=== PATIENT | male | born 1930 | race Caucasian/White ===

== ENCOUNTER 2017-10-23 11:13 | Outpatient (CLI) | payer MEDICARE, OTHER ==
[~2017-10-23] VITALS: Ht 188 cm; Wt 90.7 kg
--- NOTE | ~2017-10-23 | OP ---
PATIENT NAME: ISHA ROPER MEDICAL RECORD: [id number] :31 LOCATION:D.CAT ADMISSION DATE: SURGEON: ALLYSON BAXTER MD DATE OF OPERATION: 10/23/2017 DATE OF OPERATION: 10/23/2017 PREOPERATIVE DIAGNOSIS: Sick sinus syndrome with paroxysmal atrial fibrillation and peter escape. This was a cosurgeon case. The painter and decorator is Dr. Donavan Parker. SURGEON: Allyson Baxter Jr., MD ANESTHESIA: Local with IV sedation. BLOOD LOSS: Minimal. COMPLICATIONS: None. This was a cosurgeon case. Due to the complexity of the operation, it was necessary to have 2 attending surgeons present, a painter and decorator and a general surgeon. DESCRIPTION OF PROCEDURE: The patient was conveyed to the cardiac catheterization laboratory on 10/23/2017. IV sedation was induced by the nursing staff under my direction. The left chest was sterilely prepped and draped. A local anesthetic was used to infiltrate the skin and subcutaneous tissues inferior to the left clavicle. A transverse incision was accomplished inferior to the left clavicle. A subcutaneous pocket was fashioned bluntly in a caudad direction. I had an anesthesiologist assistant certified pull down on the left arm toward the foot. Through the pacemaker pocket, I was able to advance a needle under the left clavicle, utilizing an antegrade approach to the subclavian vein. This was visualized under fluoroscopy. A guidewire passed easily. This was visualized under fluoroscopy as well. A 9-Qatari dilator sheath was advanced over the wire. This was visualized under fluoroscopic guidance. The dilator was removed. Through the 9-Qatari sheath, the ventricular lead was advanced. Dr. Donavan Parker positioned the ventricular lead. Appropriate thresholds were obtained. I then sutured the ventricular lead down to the underlying pectoralis fascia with 2-0 TiCron times 2. Over the secondary wire, a 7-Qatari dilator sheath was advanced. This was visualized under fluoroscopic guidance. The dilator and wire were removed. Through the sheath, an atrial lead was advanced. The Peel-Away sheath was then removed. Dr. Donavan Parker then positioned the atrial lead. Appropriate thresholds were obtained. I then sutured the atrial lead down to the underlying pectoralis fascia with 2-0 TiCron times 2. The pacemaker generator was then brought onto the sterile field. I confirmed with the pacemaker packaging sales representative the serial number on the ventricular lead. It was then placed within the ventricular dock of the pacemaker and tightened down with the wrench. I tried to dislodge the ventricular lead and was unable to do so. I then confirmed with pacemaker packaging sales representative the serial number on the atrial lead. This was placed in the atrial dock of the pacemaker generator and then tightened down with the wrench. I tried to dislodge the atrial lead and was unable to do so. The pacemaker generator and wires were then placed in the pacemaker pocket. Care was paid to place the wires posterior to the generator. The pacemaker was then sutured to the underlying pectoralis fascia with 2-0 OPERATIVE REPORT [id number] ISHA ROPERron times 1. I irrigated the pacemaker pocket. There was no bleeding even at low pressure of 8. The deep adipose tissue was closed with interrupted 3-0 Vicryls. The subcutaneous adipose tissue was closed with interrupted 3-0 Vicryls. The skin was approximated with a running intracuticular 3-0 Vicryl. A sterile dressing was applied. We then examined the pacemaker generator and the wires again. The wires appeared to have been well placed and had not been dislodged. The pacemaker generator appeared to be in good position. There was no radiographic evidence of complication. The patient was then conveyed back to their room. I will see the patient on a p.r.n. basis. There is no need for the patient to follow up with me unless the patient develops a complication related to this operative procedure. My involvement in the procedure was creation of the pacemaker pocket, vascular access into the central venous system, placement of the pacemaker generator into the pocket and then closure. TRANSINT:[id number] Voice Confirmation ID: [id number] DOCUMENT ID: [id number] ALLYSON BAXTER MD at 0938 CC: DONAVAN ALBA MD [id number] DICTATION DATE: 10/23/17 1504 BRUSH SANDER: 10/23/17 1648 DEP CLI 10/24/17 [id number] [place] [address]
--- NOTE | ~2017-10-23 | HEMODYNAMI ---
PATIENT:ISHA ROPER MEDICAL RECORD: [id number] : 31 LOCATION:DMARILYNN ADMISSION DATE: 10/23/17 Generatedon:10/23/201714:32 Patient name: ISHA ROPER Patient #: [id number] SSN: DO B: 1930 Date of study: 10/23/2017 Page: Of Hemodynamic Procedure Report Patient Data Patient Demographics Procedure consent was obtained First Name: ISHA Gender: Male Last Name: JUDSON : 1930 Middle Initial: F Age: 86 year(s) Patient #: [id number] Race: Unknown Additional ID: [id number] Contact details [address]: [address] [place] [address] State: [place] City: [place] Zip code: [address] Past Medical History Allergies Allergen Reaction Date Comments Reported Morphine 10/23/2017 Penicillins 10/23/2017 Admission Admission Data Admission Date: 10/23/2017 Admission Time: 11:13 Procedure Procedure Types Cath Procedure Diagnostic Procedure PPM/ICD PPM Dual Implant Miscellaneous Procedures Moderate Sedation up to 30 minutes Procedure Description Procedure Date Procedure Date: 10/23/2017 Procedure Start Time: 13:44 Procedure End Time: 14:32 Procedure Staff Name Function Donavan Parker MD Performing Physician Wing De Oliveira MD Assisting physician Rob Sharma RT Monitor Mague Lyle RT Monitor Loree Xiao RT Scrub Jem Marvin RN Nurse Procedure Data Cath Procedure Fluoroscopy Diagnostic fluoroscopy Total fluoroscopy Time: 2.8 time: 2.8 min min Diagnostic fluoroscopy Total fluoroscopy dose: 96 dose: 96 mGy mGy Procedure Complications No complications Procedure Medications Medication Administration Route Dosage Vancomycin I.V.P.B 1 g Vancomycin Topical 1 g Irrigation Fentanyl I.V. 50 mcg Versed I.V. 1 mg Fentanyl I.V. 50 mcg Versed I.V. 1 mg Hemodynamics Rest Heart Rate: 44 (bpm) Snapshots Pre Cath Intra NCS Post Cath Vital Signs Time Heart Resp SPO2 etCO2 NIBP (mmHg) Rhythm Pain Sedation Rate (ipm) (%) (mmHg) Status Level (bpm) 13:39:46 45 18 98 0 206/95(156) NSR 0 (11) 10(A) , No pain 13:45:15 48 19 98 0 187/89(151) NSR 0 (11) 10(A) , No pain 13:49:32 50 19 92 0 185/78(140) NSR 0 (11) 10(A) , No pain 13:53:46 49 18 94 0 181/78(136) NSR 0 (11) 9(A) , No pain 13:57:57 51 18 94 0 180/82(136) NSR 0 (11) 9(A) , No pain 14:02:15 48 18 94 0 177/69(133) NSR 0 (11) 9(A) , No pain 14:07:06 41 17 96 0 182/84(139) NSR 0 (11) 9(A) , No pain 14:11:49 60 17 96 0 180/76(139) NSR 0 (11) 9(A) , No pain 14:15:59 60 18 96 0 181/83(140) NSR 0 (11) 9(A) , No pain 14:20:09 60 20 97 0 182/89(132) NSR 0 (11) 9(A) , No pain 14:24:17 84 18 95 0 183/94(121) NSR 0 (11) 9(A) , No pain 14:29:16 65 16 96 0 187/89(152) NSR 0 (11) 9(A) , No pain Medications Time Medication Route Dose Verified Delivered Reason Notes Effective ness by by 13:33:31 Vancomycin I.V.P.B 1 g [place] [facility] Per [facility] Enio Marvin RN physician 13:33:45 Vancomycin Topical 1 g Donavan Parish used for Irrigation [facility]. Enio Marvin RN procedure 13:46:07 Fentanyl I.V. 50 Donavan Parish for [facility] Enio Marvin RN sedation 13:46:13 Versed I.V. 1 mg Donavan Parish for [facility] Enio Marvin RN sedation 13:50:04 Fentanyl I.V. 50 Donavan Parish for [facility] Enio Marvin RN sedation 13:50:09 Versed I.V. 1 mg [place] for [facility] Enio Marvin RN sedation Procedure Log Time Note 13:14:09 Jem Marvin RN sent for patient. Start room use. 13:14:10 Time tracking: Regular hours 13:14:13 Plan of Care:Hemodynamics will remain stable., Cardiac rhythm will remain stable., Comfort level will be maintained., Respiratory function will remain adequate., Patient/ family verbilizes understanding of procedure., Procedure tolerated without complication., Recovers from procedure without complications.. 13:18:54 Patient received from Pre/Post Procedure Room to CCL 3 Alert and oriented. Tansferred to table in Supine position. 13:18:55 Warm blankets applied, and leslie hugger turned on for patient comfort. 13:18:56 Correct patient and procedure confirmed by team. 13:18:58 Signed procedure consent form obtained from patient. 13:18:59 ECG and BP/O2 sat monitors applied to patient. 13:33:31 Vancomycin 1 g I.V.P.B was administered by Jem Marvin RN; Per physician; 13:33:44 Cautery Tip Metal Die Finisher opened to sterile field. 13:33:45 Vancomycin Irrigation 1 g Topical was administered by Jem Marvin RN; used for procedure; 13:33:46 Mepilex Dressing (708630) opened to sterile field. 13:33:47 Cautery Pushbutton Pencil opened to sterile field. 13:33:53 PEELAWAY 7FR Safe Sheath (SU7) opened to sterile field. 13:35:44 Medtronic Adapta PPM Dual Generator ADDR01 opened to sterile field. 13:35:45 Medtronic 4074-58 PPM Lead opened to sterile field. 13:35:46 Medtronic 4574-53 PPM Lead opened to sterile field. 13:37:26 Vital chart was started 13:37:27 Baseline sample Acquired. 13:37:32 Rhythm: sinus bradycardia 13:37:34 Full Disclosure recording started 13:39:16 H&P Date Dictated: 10/15/2017 Within 30 days and on chart., H&P Addendum completed by physician on day of procedure. (MUST COMPLETE FOR ALL OUTPATIENTS). 13:39:22 Pre-procedure instructions explained to patient. 13:39:23 Pre-op teaching completed and patient verbalized understanding. 13:39:25 Family in waiting room. 13:39:28 Patient NPO since Breakfast. 13:39:38 Patient allergic to Morphine 13:39:45 Patient allergic to Penicillins 13:39:51 ----Pre-sedation anethsthesia assessment.---- 13:39:53 Previous problem with sedation/anesthesia? No ? 13:40:20 Snore? Yes 13:40:23 Sleep apnea? No 13:40:26 Deviated septum? No 13:40:28 Opens mouth fully? Yes 13:40:31 Sticks out tongue? Yes 13:40:34 Airway obstruction? No ? 13:40:43 Dentures? Yes in tight 13:40:52 Physician arrived 13:40:53 --------ALL STOP TIME OUT------ 13:40:53 Final Timeout: patient, procedure, and site verified with staff and physician. All members of the team are in agreement. 13:40:57 Left chest site verified by team. 13:41:01 Physical assessment completed. ASA score P 2 - A patient with mild systemic disease as per Wing De Oliveira MD. 13:41:10 Sedation plan: IV Moderate Sedation Medication:Versed, Fentanyl 13:42:02 IV patent on arrival in left forearm with 0.9% NaCl at [facility]. 13:42:20 Procedure started. 13:42:45 Medtronic customer loyalty representative ed lozada present for procedure. 13:43:48 Pre sharps counted by scrub and verified by RN: Sutures: 14; Sponges: 5; Stick needles: 2; Skin needles: 2; Blade: 1; Cautery: 1 13:43:51 Grounding pad site Left thigh. 13:44:10 Lidocaine 1% w/epi and Bupivacaine 0.5% was administered to left subclavicular area by Wing De Oliveira MD . 13:44:13 Incision made to left subclavicular area. 13:46:07 Fentanyl 50 mcg I.V. was administered by Jem Marvin RN; for sedation; 13:46:13 Versed 1 mg I.V. was administered by Jem Marvin RN; for sedation; 13:47:27 Generator pocket made/opened. 13:47:56 Left subclavian vein accessed with 7Fr Peel Away Sheath. 13:48:23 PEELAWAY 9FR Safe Sheath (SU9) opened to sterile field. 13:48:46 Left subclavian vein accessed with 9Fr Peel Away Sheath. 13:50:04 Fentanyl 50 mcg I.V. was administered by Jem Marvin RN; for sedation; 13:50:09 Versed 1 mg I.V. was administered by Jem Marvin RN; for sedation; 13:52:35 Ventricular lead inserted and advanced. 13:52:37 Peel-a-way sheath was split and removed. 13:52:47 Left subclavian vein accessed with 7Fr Peel Away Sheath. 13:52:50 Atrial lead inserted and advanced. 13:52:51 Peel-a-way sheath was split and removed. 13:53:05 Ventricular lead positioned. 13:54:00 Ventricular lead tested. 13:55:02 Left subclavian vein accessed with 7Fr Peel Away Sheath. 13:58:12 Atrial lead inserted and advanced. 13:58:16 Peel-a-way sheath was split and removed. 13:58:43 Atrial lead positioned. 13:58:46 Atrial lead tested. 14:01:11 Ventricular lead repositioned. 14:05:52 Ventricular lead tested. 14:07:38 Ventricular lead attachment was completed with 2-0 ticron. 14:08:22 Atrial lead attachment was completed with 2-0 ticron. 14:10:44 PPM Dual was attached to lead(s) and inserted into pocket. 14:11:23 Device pocket was irrigated with Vancomycin. 14:12:05 Subcutaneous closure was completed with 3-0 vicryl. 14:13:18 Parameters--Ventricular P/R Wave: 13.7`mV. Current: 0.6mA; Threshold: .3V; Impedence: 1289OHMS. 14:14:08 Parameters--Atrial P/R Wave: 13.7mV. Current: 0.2mA; Threshold: 0.3V; Impedence: 1289OHMS. 14:15:54 Parameters-- Generator: Mode: AAIR/DDDR. Lower Rate: 60bpm. Upper Rate: 120bpm. 14:16:26 Subcutaneous closure was completed with 3-0 vicryl. 14:20:37 Skin closure was completed with 3-0 vicryl plus. 14:24:02 Lt Chest incision was dressed with Mepilex dressing. 14:24:25 Post sharps counted by scrub and verified by RN: Sutures: 14; Sponges: 5; Stick needles: 2; Skin needles: 2; Blade: 1; Cautery: 1 14:25:11 Procedure ended.(Physican Out) 14:25:26 Fluoroscopy time 02.80 minutes. 14:25:31 Fluoroscopy dose: 96 mGy 14:25:31 Flurop Dose total: 96 14:25:34 Sharps counted by scrub and verified by R.N. 14:25:46 Post procedure instruction explained to patient.Patient verbalizes understanding. 14:25:47 Patient needs reinforcement of post procedure teaching. 14:26:30 Procedure type changed to Cath procedure, Diagnostic procedure, PPM/ICD, PPM Dual Implant, Miscellaneous Procedures, Moderate Sedation up to 30 minutes 14:27:21 Procedure and supply charges have been captured, reviewed, submitted and are correct. 14:27:26 Procedure Complication : No complications 14:31:56 Vital chart was stopped 14:31:57 See physician's report for complete and final results. 14:31:59 Report given to Pre/Post Procedure Room. 14:32:01 Patient transfered to Pre/Post Procedure Room with Bed. 14:32:03 Procedure ended. 14:32:03 Full Disclosure recording stopped 14:32:08 End room use (Document Last) Device Usage Item Name Manufacture Quantity Catalog Hospital Part Current Minimal Lot # / Number Charge Number Stock Stock Serial# Code Cautery Microtek 1 [id number] 5 [employer] Metal Die Finisher Mepilex Cardinal 1 [id number] [id number] [id number] [id number] 5 Dressing Health (211359) Cautery Microtek 1 [id number] 68983 [id number] 5 Pushbutton [employer] Pencil PEELAWAY Microtek 1 SU7 [id number] 146089 [id number] 10 7FR Safe [employer] Sheath (SU7) Medtronic Medtronic 1 ADDR01 788264 161072 5 NWB [id number] Adapta PPM EXP Dual Generator ADDR01 Medtronic Medtronic 1 4074-58 726333 516438 5 BBD [id number] 4074-58 EXP PPM Lead Medtronic Medtronic 1 4574-53 469838 030881 5 BBE [id number] 4574-53 EXP PPM Lead PEELAWAY Microtek 1 SU9 371919 715549 030990 5 9FR [facility] [employer] Sheath (SU9) Signature Audit Warren Stage Time Signature Unsigned Intra-Procedure 10/23/2017 Mague Lyle 2:32:46 PM RT(R) Signatures Monitor : Rob Sharma RT Signature : Date : Time : Monitor : Mague Lyle Signature : RT Date : Time : [address] [place] [address]
--- NOTE | ~2017-10-23 | OP ---
PATIENT NAME: ISHA THOMPSON MEDICAL RECORD: [id number] :31 LOCATION:D.CAT ADMISSION DATE: SURGEON: MALINDA ALBA MD DATE OF OPERATION: 10/23/2017 PROCEDURE: Lead portion of permanent pacemaker placement. INDICATION: Sick sinus syndrome with PAF and peter escapes. SURGEON: Wing De Oliveira MD DESCRIPTION OF PROCEDURE: After left subclavian was cannulated via direct visualization via Dr. De Oliveira, first, under fluoroscopic guidance, I placed RV lead in RV apex. After adequate thresholds and R waves were obtained, again, under fluoroscopic guidance, I then placed right atrial lead in right atrial appendage without difficulty. After adequate P waves and thresholds were obtained, leads were attached to appropriate poles of the generator. Pocket was closed by Dr. De Oliveira. IMPRESSION: Successful lead portion of permanent pacemaker placement on Isha Thompson. COMPLICATIONS: None. DISPOSITION: To the floor, stable. ESTIMATED BLOOD LOSS: Minimal. TRANSINT:[id number] Voice Confirmation ID: [id number] DOCUMENT ID: [id number] MALINDA ALBA MD at 1337 CC: [id number] DICTATION DATE: 10/23/17 1414 HOME ATTENDANT: 10/23/17 1512 DEP CLI 10/24/17 [facility] [address] [place] [address]
[~2017-10-23 11:13] MED LIST: ALEVE220 MG PO; BAYER CHEWABLE81 MG PO; CARDURA4 MG; CARDURA4 MG PO; DOXAZOSIN PO; FISH OIL 1,0001 CA1 PO; GEMFIBROZIL600 MG PO; KENALOG 0.1 % 115 GM TOPICAL; OS-CAL 500+D TA1 TAB PO; PACERONE100 MG PO; PREDNISONE5 MG PO; STOOL SOFTENER100 M1 PO; TIROSINT75 MCG PO; VIBRAMYCIN 100100 MG PO; VITAMIN B-121000 MCG PO
[2017-10-23] MEDS ORDERED: PREDNISONE5 MG PO (12:14)
[2017-10-23] MEDS ORDERED: SYNTHROID75 MCG PO (12:15)
[2017-10-23] MEDS ORDERED: ZIAC 10-6.25 MG1 TAB PO (12:15)
[2017-10-23 12:18] VITALS: BP 164/70; BMI 25.7
[2017-10-23 12:22] LABS: BASOPHILS 0.2 % (0-2); EOSINOPHILS 1.7 % (0-7); HEMATOCRIT 40.8 % (42.0-54.0); HEMOGLOBIN 13.8 g/dL (13.5-17.5); LYMPHOCYTES 18.2 % (15-50); MCH 32.8 pg (26.0-34.0); MCHC 33.8 g/dL (31.0-37.0); MCV 96.9 fL (80.0-100.0); MEAN PLATELET VOLUME 10.4 fL (7.4-10.4); MONOCYTES 5.5 % (2-11); NEUTROPHILS 74.4 % (40-80); PLATELET COUNT 170 10x3/uL (130-400); RBC 4.21 10x6/uL (4.20-6.10); RDW 12.8 % (11.5-14.5); WBC 4.2 10x3/uL (4.8-10.8)
[2017-10-23 12:32] LABS: INR 1.04 (0.85-1.17); PROTIME 13.2 SECONDS (11.6-15.0)
[2017-10-23 12:43] LABS: CALCIUM 9.1 mg/dL (8.5-10.1); CARBON DIOXIDE 24.8 mmol/L (21.0-32.0); CREATININE - SERUM 1.1 mg/dL (0.6-1.3); POTASSIUM - SERUM 3.8 mmol/L (3.5-5.1)
[2017-10-23 19:00] VITALS: BP 179/74
[2017-10-24 03:43] VITALS: Ht 188 cm; Wt 90.7 kg
[2017-10-24 04:00] VITALS: BP 178/84
[2017-10-24 08:08] VITALS: BP 169/83
== END 2017-10-24 10:38 | disposition home or self-care (01) ==
LOC: D.CATH 11:13 → D.M2 11:13 → D.CATH 13:30 → D.M2 17:54 → D.CATH 10-24 10:38
PROVIDERS: Internal Medicine Interventional Cardiology
DX: I49.5 Sick sinus syndrome (principal); I25.10 Atherosclerotic heart disease of native coronary artery without angina pectoris; I10 Essential (primary) hypertension; E11.9 Type 2 diabetes mellitus without complications; Z01.812 Encounter for preprocedural laboratory examination

== ENCOUNTER 2018-09-02 10:24 | Outpatient (CLI) | payer MEDICARE, OTHER ==
[~2018-09-02] VITALS: Ht 188 cm; Wt 90.9 kg
--- NOTE | ~2018-09-02 | OP ---
PATIENT NAME: ISHA ROPER MEDICAL RECORD: [id number] :31 LOCATION:D.CAT ADMISSION DATE: SURGEON: MALINDA ALBA MD DATE OF OPERATION: 09/02/2018 This is a cath, PTCA, AFRO report. PROCEDURE: Left heart catheterization, selective coronary aortography, GIBSON injection, PTCA, and AFRO right femoral artery approach. CATHETERS: A 5-Bulgarian sheath, 5/4 left and right Davy, 5/4 pig. The procedure was well tolerated. The patient returned to the diaz, sheath removed and ExoSeal device placed. FINDINGS: Left ventriculography in 30-degree SAHNI view: Normal wall motion. Normal systolic function. CORONARY ANATOMY: LEFT MAIN: Left main is free of disease. LAD: Fills for a short period of time, is seen filling via competitive flow. CIRCUMFLEX: Free of disease. RIGHT CORONARY ARTERY: Has 80% stenosis proximal to the previously placed stent. GIBSON to LAD: Is widely patent throughout its course. The catheter was withdrawn to the level of the renal arteries. There was difficulty in traversing the wire at the level of the renal arteries itself. Aortography above and below this area show a 50% with questionable external compression of the abdominal aorta. The left iliac system shows marked tortuosity with calcium buildup, but no flow obstructive disease. Left femoral system again marked tortuosity with calcium wall disease, but no significant luminal encroachment. Right iliac system is a markedly tortuous with calcium in the wall, but no encroachment on the lumen itself. The femoral system again marked calcium deposition along the wall, but without luminal encroachment. 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 We will plan for a CTA of this vessel. Suspect the buildup in calcium is responsible for the abnormal ABIs as described previously in a separate report. Next, long 6-Bulgarian sheath placed in the right femoral artery and a Hockey stick guide catheter was placed into the right coronary without difficulty. This was followed by 300-cm Whisper wire. Stent deployed was a 3.5 x 15 mm Integrity nondrug-eluting stent at 14 atmospheres. This shows excellent resolution of 80% stenosis, no significant residual. NOHEMI flow was 3 throughout the procedure. Integrilin and heparin are used during the case. Sheath was closed with ExoSeal device. TRANSINT:[id number] Voice Confirmation ID: [id number] DOCUMENT ID: [id number] OPERATIVE REPORT [id number] ISHA ROPER GREGORY A MD at 1303 CC: [id number] DICTATION DATE: 09/02/181404 PIPE STRIPPER: 09/02/18 1841 DEP CLI 09/02/18 [facility] [address] [place] [id number]
--- NOTE | ~2018-09-02 | HEMODYNAMI ---
PATIENT:ISHA ROPER MEDICAL RECORD: [id number] : 32 LOCATION:[facility] ADMISSION DATE: 09/02/18 Generatedon:09/02/201813:56 Patient name: ISHA ROPER Patient #: [id number] SSN: DO B: 1930 Date of study: 09/02/2018 Page: Of Hemodynamic Procedure Report Patient Data Patient Demographics Procedure consent was obtained First Name: ISHA Gender: Male Last Name: JUDSON : 1930 Middle Initial: F Age: 87 year(s) Patient #: [id number] Race: Unknown Additional ID: [id number] Contact details [address]: [address] [place] [address] State: [place] City: [place] Zip code: [address] Past Medical History Allergies Allergen Reaction Date Comments Reported Morphine 10/23/2017 Penicillins 10/23/2017 Morphine 09/02/2018 Natural rubber 09/02/2018 and latex Penicillins 09/02/2018 Admission Admission Data Admission Date: 09/02/2018 Admission Time: 10:24 Procedure Procedure Types Cath Procedure Diagnostic Procedure LHC LHC w/Coronaries w/Grafts Sedation Charges Moderate Sedation up to 30 minutes PCI Procedure Coronary Stent Coronary Stent Initial Peripheral Cath Diagnostic Procedure Edge Grinder Machine Peripheral Procedures Ynwoa-Uxdwudn-Pnn-Off Procedure Description Procedure Date Procedure Date: 09/02/2018 Procedure Start Time: 13:11 Procedure End Time: 13:55 Procedure Staff Name Function Donavan Palacios MD Performing Physician Loree Xiao RT Monitor Elliot Charles RN Nurse Marbella Brown RT Scrub Jem Marvin RN Consumer Recruiter Procedure Data Cath Procedure Fluoroscopy Diagnostic fluoroscopy Total fluoroscopy Time: time: 14.1 min 14.1 min Diagnostic fluoroscopy Total fluoroscopy dose: dose: 1677 mGy 1677 mGy Contrast Material Contrast Material Type Amount (ml) Isovue 300 217 Entry Location Entry Primary Successful Side Size Upsize Upsize Entry Closure Succes sful Closure Location (Fr) 1 (Fr) 2 (Fr) Remarks Device Remarks Femoral Right 5 Fr 6 Fr 6 Fr artery Long Short Estimated blood loss: 10 ml Diagnostic catheters Device Type Used For End Catheter Placement MULTIPACK 3DRC 5Fr Right Coronary catheter Angiography MULTIPACK 3DRC 5Fr Internal mammary catheter arteriography DIAGNOSTIC MPA-2 5Fr Internal mammary catheter ([id number]) arteriography MULTIPACK JL 4.0 5Fr Left Coronary catheter Angiography MULTIPACK Pigtail 5 Fr LV Angiography catheter MULTIPACK Pigtail 5 Fr Abdominal catheter aortogram with runoff Procedure Complications No complications Procedure Medications Medication Administration Route Dosage 0.9% NaCl I.V. 100 ml/hr Oxygen etCO2 Nasal cannula 2 l/min Heparin Flush Bag added to field 2 bags (1000units/500ml NS) Lidocaine 2% added to field 20 Versed I.V. 1 mg Fentanyl I.V. 50 mcg Versed I.V. 1 mg Fentanyl I.V. 50 mcg Heparin Bolus I.V. 5000 units Integrilin (Bolus I.V. 7.9 ml 2mg/ml) Integrilin (Bolus wasted 2.1 ml 2mg/ml) Plavix P.O. 600 mg Fentanyl I.V. 50 mcg Fentanyl I.V. 50 mcg Hemodynamics Rest Heart Rate: 60 (bpm) Pressure Samples Time Site Value (mmHg) Purpose Heart Use Rate(bpm) 13:29 LV 87/14,18 EDP 80 13:29 AO 153/50(91) Pullback 59 13:29 LV 157/13,19 Pullback 59 Gradients Valve Time Site 1 Site 2 Mean SEP/DFP Peak To Heart Use (mmHg) (sec/min) Peak Rate (mmHg) (bpm) Aortic 13:29 LV AO 8 18 4 59 157/13,19 153/50(91) Calculations Valve P-P Mean Valve Index Valve Source Name Gradient Area Flow (cm2) Aortic 4 8 4 8 Snapshots Pre Cath Intra NCS Post Cath Vital Signs Time Heart Resp SPO2 etCO2 NIBP (mmHg) Rhythm Pain Sedation Rate (ipm) (%) (mmHg) Status Level (bpm) 12:49:11 60 20 98 0 179/94(137) Paced 0 (11) , 10(A) No pain 12:53:33 70 14 100 23.4 162/80(110) Paced 0 (11) , 10(A) No pain 12:57:47 60 15 100 37.1 162/89(133) Paced 0 (11) , 10(A) No pain 13:02:03 60 14 100 32.5 156/81(127) Paced 0 (11) , 10(A) No pain 13:06:19 60 14 100 0 150/78(129) Paced 0 (11) , 10(A) No pain 13:10:33 60 14 100 17.4 152/75(123) Paced 0 (11) , 10(A) No pain 13:14:47 60 18 100 0 148/77(124) Paced 0 (11) , 9(A) No pain 13:19:01 60 17 97 0 140/74(115) Paced 0 (11) , 9(A) No pain 13:23:13 60 18 98 0 134/74(108) Paced 0 (11) , 9(A) No pain 13:28:22 59 18 99 38.6 145/83(124) Paced 0 (11) , 9(A) No pain 13:32:34 59 17 99 38.6 152/79(129) Paced 0 (11) , 10(A) No pain 13:36:50 60 11 100 40.9 154/76(126) Paced 0 (11) , 10(A) No pain 13:41:04 60 15 99 38.6 158/81(95) Paced 0 (11) , 10(A) No pain 13:45:18 61 19 99 39.4 161/81(99) Paced 0 (11) , 10(A) No pain 13:50:42 61 10 99 34.8 187/98(113) Paced 8 (11) , 10(A) Utterly horrible 13:55:04 61 10 99 35.6 195/97(128) Paced 8 (11) , 10(A) Utterly horrible Medications Time Medication Route Dose Verified Delivered Reason Notes Effectiveness by by 12:52:04 0.9% NaCl I.V. 100 Elliot Elliot Per physician ml/hr Araceli Charles RN RN 12:52:14 Oxygen etCO2 2 Elliot Elliot Per physician Nasal l/min Araceli Charles cannula RN RN 12:52:26 Heparin Flush added 2 Elliot Elliot used for Bag to bags Araceli Charles procedure (1000units/500ml RN RN NS) 12:52:37 Lidocaine 2% added 20ml Elliot Elliot for local to vial Araceli Charles anesthetic field RN RN 13:06:26 Versed I.V. 1 mg Elliot Elliot for sedation Araceli Charles RN RN 13:06:35 Fentanyl I.V. 50 Elliot Elliot for sedation mcg Araceli Charles RN RN 13:09:00 Versed I.V. 1 mg Elliot Elliot for sedation Araceli Charles RN RN 13:09:05 Fentanyl I.V. 50 Elliot Elliot for sedation mcg Araceli Charles RN RN 13:43:35 Heparin Bolus I.V. 5000 Elliot Elliot for units Araceli Charles anticoagulation RN RN 13:43:51 Integrilin I.V. 7.9 Elliot Elliot for (Bolus 2mg/ml) ml Araceli Charles antiplatelet RN RN therapy 13:44:01 Integrilin wasted 2.1ml Elliot Elliot to sharp's (Bolus 2mg/ml) Araceli Charles RN RN 13:49:13 Plavix P.O. 600 Elliot Elliot for mg Araceli Charles antiplatelet RN RN therapy 13:53:51 Fentanyl I.V. 50 Elliot Elliot for chest pain mcg Araceli Charles RN RN 13:54:56 Fentanyl I.V. 50 Elliot Elliot for chest pain mcg Araceli Charles RN tax compliance manager Log Time Note 12:35:45 Jem Marvin RN sent for patient. Start room use. 12:35:46 Time tracking: Regular hours (M-F 7:00 - 5:00) 12:35:53 Plan of Care:Hemodynamics will remain stable., Cardiac rhythm will remain stable., Comfort level will be maintained., Respiratory function will remain adequate., Patient/ family verbilizes understanding of procedure., Procedure tolerated without complication., Recovers from procedure without complications.. 12:44:43 Patient received from Pre/Post Procedure Room to CCL 2 Alert and oriented. Tansferred to table in Supine position. 12:44:44 Warm blankets applied, and leslie hugger turned on for patient comfort. 12:44:45 Correct patient and procedure confirmed by team. 12:44:46 Signed procedure consent form obtained from patient. 12:44:47 ECG and BP/O2 sat monitors applied to patient. 12:44:48 Full Disclosure recording started 12:48:06 Vital chart was started 12:51:44 Rhythm: sinus rhythm 12:52:00 H&P Date Dictated: 08/22/2018 Within 30 days and on chart., H&P Addendum completed by physician on day of procedure. (MUST COMPLETE FOR ALL OUTPATIENTS). 12:52:04 0.9% NaCl 100 ml/hr I.V. was administered by Elliot Charles RN; Per physician; 12:52:07 Pre-procedure instructions explained to patient. 12:52:08 Pre-op teaching completed and patient verbalized understanding. 12:52:10 Family in patients room. 12:52:11 Patient NPO since Midnight. 12:52:14 Oxygen 2 l/min etCO2 Nasal cannula was administered by Elliot Charles RN; Per physician; 12:52:26 Heparin Flush Bag (1000units/500ml NS) 2 bags added to field was administered by Elliot Charles RN; used for procedure; 12:52:37 Lidocaine 2% 20ml vial added to field was administered by Elliot Charles RN; for local anesthetic; 12:52:39 Patient allergic to Morphine 12:52:45 Patient allergic to Natural rubber and latex 12:52:50 Patient allergic to Penicillins 12:52:52 Is the patient allergic to Iodine/contrast media? No. 12:52:54 Is patient on blood thinner?No 12:52:55 Patient diabetic? No. 12:53:01 Previous problem with sedation/anesthesia? No ? 12:53:02 Snore? Yes 12:53:03 Sleep apnea? No 12:53:04 Deviated septum? No 12:53:05 Opens mouth fully? Yes 12:53:06 Sticks out tongue? Yes 12:53:08 Airway obstruction? No ? 12:53:10 Dentures? No ? 12:53:15 Pre procedure: right dorsailis pedis pulse 2+ Normal; easily identifiable; not easily obliterated 12:58:58 Patient pain scale 0/10 ?. 12:59:06 IV patent on arrival in left forearm with 0.9% NaCl at [facility]. 12:59:08 Lab results completed and on chart. 12:59:18 Bilateral groins area was prepped with chlora-prep and draped in sterile fashion 12:59:18 Alarms reviewed by R. N. 12:59:19 Sharps counted by scrub and verified by R.N. 12:59:24 Use device set Femoral Dx 12:59:25 ACIST Syringe (55501) opened to sterile field. 12:59:25 Bag Decanter (2002S) opened to sterile field. 12:59:26 Medline Cath Pack ([id number]) opened to sterile field. 12:59:26 DIAGNOSTIC WIRE .035 260cm J wire (485579) opened to sterile field. 12:59:27 ACIST Hand Control (00549) opened to sterile field. 12:59:28 ACIST Manifold (59824) opened to sterile field. 12:59:28 DIAGNOSTIC Multipack 5Fr catheter set ([id number]) opened to sterile field. 12:59:29 Tegaderm 4 x 4 (1626W) opened to sterile field. 12:59:30 SHEATH 5FR [place] (JLD741) opened to sterile field. 13:00:02 Baseline sample Acquired. 13:02:52 Zero performed for pressure channel P1 13:02:56 Zero performed for pressure channel P1 13:03:00 Zero performed for pressure channel P1 13:03:03 Zero performed for pressure channel P1 13:03:09 Zero performed for pressure channel P1 13:05:37 Final Timeout: patient, procedure, and site verified with staff and physician. All members of the team are in agreement. 13:05:39 Right groin site verified by team. 13:05:42 Physical assessment completed. ASA score P 2 - A patient with mild systemic disease as per Donavan Palacios MD. 13:05:45 Sedation plan: IV Moderate Sedation Medication:Versed, Fentanyl 13:06:26 Versed 1 mg I.V. was administered by Elliot Charles RN; for sedation; 13:06:35 Fentanyl 50 mcg I.V. was administered by Elilot Charles RN; for sedation; 13:09:00 Versed 1 mg I.V. was administered by Elliot Charles RN; for sedation; 13:09:05 Fentanyl 50 mcg I.V. was administered by Elliot Charles RN; for sedation; 13:11:07 Procedure started. 13:11:10 Local anesthetic to right femoral artery with Lidocaine 2% by Donavan Palacios MD.INITIAL ACCESS ONLY 13:12:15 A 5 Fr sheath was inserted into the Right Femoral artery 13:15:37 GLIDE WIRE ANGLE 260cm (GG6860) opened to sterile field. 13:16:58 GLIDE wire advanced. 13:17:02 A MULTIPACK 3DRC 5Fr catheter was advanced over the wire and used for Right Coronary Angiography. 13:21:56 A MULTIPACK 3DRC 5Fr catheter was advanced over the wire and used for Internal mammary arteriography. REMOVED, UNABLE TO ADVANCE CATHETER THROUGH SUBCLAVIAN 13:23:07 A DIAGNOSTIC MPA-2 5Fr catheter ([id number]) was advanced over the wire and used for Internal mammary arteriography. TO LAD 13:24:43 Catheter removed. 13:27:17 A MULTIPACK JL 4.0 5Fr catheter was advanced over the wire and used for Left Coronary Angiography. 13:27:29 Catheter removed. 13:28:23 A MULTIPACK Pigtail 5 Fr catheter was advanced over the wire and used for LV Angiography. 13:29:16 LV gram done using SAHNI 13:29:34 Injector settings: Ml/sec: 10, Volume: 20, 13:29:55 EF : 55 % 13:30:02 A MULTIPACK Pigtail 5 Fr catheter was advanced over the wire and used for Abdominal aortogram with runoff. 13:31:44 Catheter removed. 13:39:13 Use device set [place] PCI 13:39:16 SHEATH 6FR [place] (KKO345) opened to sterile field. 13:39:17 INFLATOR Merit BasixCompak (XN6796) opened to sterile field. 13:39:19 WHISPER 300cm guide wire ([id number]) opened to sterile field. 13:40:05 Sheath upsized to a 6 Fr Long. 13:41:39 GUIDE 6FR HS I catheter (LA6HSI) opened to sterile field. 13:42:15 SHEATH 6FR Destination (RSR01) opened to sterile field. 13:43:35 Heparin Bolus 5000 units I.V. was administered by Elliot Charles RN; for anticoagulation; 13:43:51 Integrilin (Bolus 2mg/ml) 7.9 ml I.V. was administered by Elliot Charles RN; for antiplatelet therapy; 13:44:01 Integrilin (Bolus 2mg/ml) 2.1ml wasted was administered by Elliot Charles RN; to sharp's; 13:44:46 6 Fr HS I guide catheter was inserted over the wire 13:45:59 Place stent Inflation Number: 1 A INTEGRITY OTW 3.5 X 15 stent ([id number]) was prepped and advanced across the Prox RCA. The stent was deployed at 14 GLENYS for 0:29 (min:sec). 13:46:20 Stent catheter was removed intact over wire. 13:46:20 Wire removed. 13:46:22 Guide catheter removed. 13:46:36 Sheath upsized to a 6 Fr Short. 13:46:38 Procedure ended.(Physican Out) 13:47:00 EXOSEAL 6Fr (EX600) opened to sterile field. 13:47:26 Fluoroscopy time 14.10 minutes. 13:47:30 Flurop Dose total: 1677 13:47:30 Fluoroscopy dose: 1677 mGy 13:48:01 Contrast amount:Isovue 300 217ml. 13:48:03 Sharps counted by scrub and verified by R.N. 13:48:05 Insertion/operative site no bleeding no hematoma. 13:48:08 Post-op/insertion site Right Femoral artery dressed using a 4 x 4 and Tegaderm. 13:48:11 Post right femoral artery:stable, clean and dry 13:48:13 Post Procedure Pulses reassessed and unchanged 13:48:16 Post-procedure physical assessment completed. ASA score P 2 - A patient with mild systemic disease as per Donavan Palacios MD. 13:48:18 Post procedure rhythm: unchanged. 13:48:20 Estimated blood loss: 10 ml 13:48:22 Post procedure instruction explained to patient.Patient verbalizes understanding. 13:48:22 Patient needs reinforcement of post procedure teaching. 13:48:39 Procedure type changed to Cath procedure, Diagnostic procedure, LHC, LHC w/Coronaries w/Grafts, Sedation Charges, Moderate Sedation up to 30 minutes, PCI procedure, Coronary Stent, Coronary Stent Initial, Peripheral Cath Diagnostic Procedure, Edge Grinder Machine Peripheral Procedures, Mbpga-Gamecig-Gbe-Off 13:48:47 Procedure Complication : No complications 13:48:49 See physician's report for complete and final results. 13:49:13 Plavix 600 mg P.O. was administered by Elliot Charles RN; for antiplatelet therapy; 13:51:31 Procedure and supply charges have been captured, reviewed, submitted and are correct. 13:53:51 Fentanyl 50 mcg I.V. was administered by Elliot Lorigan RN; for chest pain; 13:54:56 Fentanyl 50 mcg I.V. was administered by Elliot Charles RN; for chest pain; 13:55:31 Vital chart was stopped 13:55:33 Report given to Pre/Post Procedure Room. 13:55:37 Patient transfered to Pre/Post Procedure Room with Stretcher. 13:55:44 Procedure ended. 13:55:44 Full Disclosure recording stopped 13:55:48 End room use (Document Last) Intervention Summary Intervention Notes Time ActionType Lesion and Equipment Action# Pressure Duration Attributes Used 13:45:59 Place stent Prox RCA INTEGRITY 1 14 00:29 OTW 3.5 X 15 stent ([id number]) Device Usage Item Name Manufacture Quantity Catalog Hospital Part Current Minimal L ot# / Number Charge Number Stock Stock Serial# Code ACIST Acist 1 80982 010714 930484 178487 20 Syringe Medical (56727) Systems Inc Bag Microtek 1 2001S 227275 78122 208545 5 Decanter Medical Inc. () Medline Medline 1 [id number] 465862 66944 805636 5 Cath Pack ([id number]) DIAGNOSTIC [place] 1 192221 018014 575678 277495 30 WIRE .035 260cm J wire (150948) ACIST Hand Acist 1 09548 466668 696389 105358 5 Control Medical (54464) Systems Inc ACIST Acist 1 94548 154313 694609 093908 5 Manifold Medical (45004) Systems Inc DIAGNOSTIC Cardinal 1 HG7665 690484 08109 521052 30 Multipack Health 5Fr catheter set (SS4830) Tegaderm 4 3M 1 1626W 280697 839884 748244 5 x 4 (1626W) SHEATH 5FR Terumo 1 ZIV745 085931 601401 198719 40 [place] (MCK282) GLIDE WIRE Terumo 1 NB0518 812078 302257 378880 5 ANGLE 260cm (VX0635) MULTIPACK Cardinal 1 394527 5 3DRC 5Fr Health catheter DIAGNOSTIC Cardinal 1 489568T 149824 375160 784225 5 MPA-2 5Fr Health catheter (860476W) MULTIPACK Cardinal 1 347302 5 JL 4.0 5Fr Health catheter MULTIPACK Cardinal 1 400006 5 Pigtail 5 Health Fr catheter SHEATH 6FR Terumo 1 TGU883 255395 635591 818377 40 [place] (MOA762) INFLATOR Merit 1 LI4743 499985 985493 975541 15 [facility] Medical BasixCompak (YX4143) WHISPER Ricks 1 [id number] 869951 611150 698748 5 300cm guide Vascular wire ([id number]) GUIDE 6FR Medtronic 1 LA6HSI 015361 08246 015588 1 HS I catheter (LA6HSI) SHEATH 6FR Terumo 1 RSR01 335090 87243 328526 5 Destination (RSR01) INTEGRITY Medtronic 1 [id number] 164075 667965 1 0 [id number] OTW 3.5 X 15 stent ([id number]) EXOSEAL 6Fr Cardinal 1 EX600 570319 898044 514103 10 (EX600) Health Signature Audit [place] Stage Time Signature Unsigned Intra-Procedure 09/02/2018 Loree 1:56:13 PM Counts RT(R) Signatures Monitor : Loree Signature : Counts RT Date : Time : [address] [address]
[~2018-09-02 10:24] MED LIST changes: +SYNTHROID75 MCG PO; +ZIAC 10-6.25 MG1 TAB PO
[2018-09-02] MEDS ORDERED: FISH OIL 1,0001 CA1 PO (10:42)
[2018-09-02] MEDS ORDERED: ASCORBIC ACID500 MG PO (10:43)
[2018-09-02] MEDS ORDERED: PROSCAR5 MG PO (10:45)
[2018-09-02] MEDS ORDERED: LOSARTAN-HCTZ1 EAC2 PO (10:46)
[2018-09-02] MEDS ORDERED: NITROQUICK0.4 MG SL (10:47)
[2018-09-02 11:04] VITALS: BP 158/79; Ht 188 cm; Wt 90.9 kg
[2018-09-02 11:13] LABS: BASOPHILS 0.2 % (0-2); EOSINOPHILS 1.5 % (0-7); HEMATOCRIT 43.1 % (42.0-54.0); HEMOGLOBIN 14.6 g/dL (13.5-17.5); IMMATURE GRANULOCYTES 0.2 % (0-5); LYMPHOCYTES 10.9 % (15-50); MCHC 33.9 g/dL (31.0-37.0); MCV 97.5 fL (80.0-100.0); MEAN PLATELET VOLUME 10.3 fL (7.4-10.4); MONOCYTES 5.4 % (2-11); NEUTROPHILS 81.8 % (40-80); PLATELET COUNT 155 10x3/uL (130-400); RBC 4.42 10x6/uL (4.20-6.10); RDW 12.4 % (11.5-14.5); WBC 6.1 10x3/uL (4.8-10.8)
[2018-09-02 11:23] LABS: CALC OSMOLALITY 279 mosm/kg (275-300); CALCIUM 8.9 mg/dL (8.5-10.1); CARBON DIOXIDE 32.8 mmol/L (21.0-32.0); CHLORIDE - SERUM 102 mmol/L (98-107); GLUCOSE 109 mg/dL (74-106); POTASSIUM - SERUM 3.6 mmol/L (3.5-5.1); SODIUM 138 mmol/L (136-145); UREA NITROGEN 20 mg/dL (7-18); eGFR NON AFRICAN AMERICAN 75 mL/min (90-120)
[2018-09-02] MEDS ORDERED: PLAVIX75 MG PO (17:32)
== END 2018-09-02 18:00 | disposition home or self-care (01) ==
LOC: D.CATH 10:24
PROVIDERS: Internal Medicine Interventional Cardiology
DX: I25.119 Atherosclerotic heart disease of native coronary artery with unspecified angina pectoris (principal); I70.219 Atherosclerosis of native arteries of extremities with intermittent claudication, unspecified extremity

== ENCOUNTER → 2018-09-15 12:15 | Outpatient (CLI) | payer MEDICARE, OTHER ==
[2018-09-02 11:04] VITALS: BMI 25.7
[~2018-09-15 12:15] MED LIST changes: +ASCORBIC ACID500 MG PO; +LOSARTAN-HCTZ1 EAC2 PO; +NITROQUICK0.4 MG SL; +PLAVIX75 MG PO; +PROSCAR5 MG PO
== END | disposition home or self-care (01) ==
LOC: D.CT 12:15
DX: I70.0 Atherosclerosis of aorta (principal)

== ENCOUNTER → 2018-12-02 14:06 | Outpatient (CLI) | payer MEDICARE, OTHER ==
[2018-09-02 11:04] VITALS: BMI 25.7
== END | disposition home or self-care (01) ==
LOC: D.LABREF 14:06
DX: M17.12 Unilateral primary osteoarthritis, left knee (principal); Z11.8 Encounter for screening for other infectious and parasitic diseases

== ENCOUNTER 2018-12-03 16:18 | Inpatient (IN) | payer MEDICARE, OTHER ==
[~2018-12-03] VITALS: Ht 188 cm; Wt 90.7 kg
[2018-12-24 11:41] LABS: ANION GAP 9.5 mmol/L (8-16); CALCIUM 9.2 mg/dL (8.5-10.1); CARBON DIOXIDE 31.7 mmol/L (21.0-32.0); CREATININE - SERUM 1.1 mg/dL (0.6-1.3); POTASSIUM - SERUM 3.2 mmol/L (3.5-5.1)
[2018-12-24 11:45] LABS: APTT 31.4 SECONDS (22.8-39.4); INR 0.95 (0.85-1.17); PROTIME 12.2 SECONDS (11.6-15.0)
[2018-12-24 12:00] LABS: APPEARANCE CLEAR (CLEAR); COLOR YELLOW (YELLOW); NITRITE NEGATIVE (NEGATIVE); PROTEIN NEGATIVE (NEGATIVE)
[2018-12-24 12:01] LABS: BACTERIA MODERATE /hpf (NONE SEEN); BILIRUBIN NEGATIVE (NEGATIVE); EPITHELIAL CELLS 0-5 /hpf (0-5); GLUCOSE NEGATIVE (NEGATIVE); KETONE NEGATIVE (NEGATIVE); UROBILINOGEN NORMAL (NORMAL); WHITE CELLS - URINE 0-5 /hpf (0-5)
[2018-12-24 12:44] LABS: BASOPHILS 0.4 % (0-2); EOSINOPHILS 0.4 % (0-7); HEMATOCRIT 41.1 % (42.0-54.0); HEMOGLOBIN 14.2 g/dL (13.5-17.5); IMMATURE GRANULOCYTES 0.2 % (0-5); LYMPHOCYTES 17.3 % (15-50); MCH 32.4 pg (26.0-34.0); MCHC 34.5 g/dL (31.0-37.0); MCV 93.8 fL (80.0-100.0); MEAN PLATELET VOLUME 10.1 fL (7.4-10.4); MONOCYTES 5.9 % (2-11); NEUTROPHILS 75.8 % (40-80); RBC 4.38 10x6/uL (4.20-6.10); RDW 12.9 % (11.5-14.5); WBC 5.6 10x3/uL (4.8-10.8)
[2018-12-24 12:45] LABS: PLATELET COUNT 205 10x3/uL (130-400)
[2018-12-29] MEDS ORDERED: PROSCAR5 MG PO (05:34)
[2018-12-29 05:58] VITALS: BP 148/75; Ht 188 cm; Wt 90.7 kg
== END 2018-12-29 08:05 | disposition home or self-care (01) | DRG 554 ==
LOC: D.SDCHOLD 12-29 05:00
PROVIDERS: ADMIT Orthopaedic Surgery; ATTEND Orthopaedic Surgery
DX: M17.12 Unilateral primary osteoarthritis, left knee (principal); Z53.09 Procedure and treatment not carried out because of other contraindication; R82.71 Bacteriuria

== ENCOUNTER 2018-12-31 12:32 | Observation (INO) | payer MEDICARE, OTHER ==
[~2018-12-31] VITALS: Ht 188 cm; Wt 90.9 kg
[2018-12-31 13:03] LABS: BASOPHILS 0.2 % (0-2); EOSINOPHILS 0.5 % (0-7); HEMATOCRIT 39.5 % (42.0-54.0); HEMOGLOBIN 13.5 g/dL (13.5-17.5); IMMATURE GRANULOCYTES 0.2 % (0-5); LYMPHOCYTES 10.8 % (15-50); MCH 32.2 pg (26.0-34.0); MCHC 34.2 g/dL (31.0-37.0); MCV 94.3 fL (80.0-100.0); MEAN PLATELET VOLUME 9.7 fL (7.4-10.4); MONOCYTES 5.7 % (2-11); NEUTROPHILS 82.6 % (40-80); PLATELET COUNT 190 10x3/uL (130-400); RBC 4.19 10x6/uL (4.20-6.10); RDW 12.9 % (11.5-14.5); WBC 5.9 10x3/uL (4.8-10.8)
[2018-12-31 13:20] LABS: APTT 33.8 SECONDS (22.8-39.4); INR 1.06 (0.85-1.17); PROTIME 13.3 SECONDS (11.6-15.0)
[2018-12-31 13:30] VITALS: BP 106/64
[2018-12-31 13:33] LABS: ALBUMIN 3.4 g/dL (3.4-5.0); ALKALINE PHOSPHATASE 48 U/L (46-116); ALT (SGPT) 20 U/L (10-68); BILIRUBIN - TOTAL 0.38 mg/dL (0.2-1.3); CALC OSMOLALITY 279 mosm/kg (275-300); CALCIUM 8.5 mg/dL (8.5-10.1); CARBON DIOXIDE 28.3 mmol/L (21.0-32.0); CHLORIDE - SERUM 99 mmol/L (98-107); CKMB 1.9 U/L (0.0-3.6); CREATINE KINASE 91 UL (21-232); CREATININE - SERUM 1.3 mg/dL (0.6-1.3); GLUCOSE 140 mg/dL (74-106); MAGNESIUM - SERUM 2.1 mg/dL (1.8-2.4); PROTEIN - SERUM 7.3 g/dL (6.4-8.2); SODIUM 137 mmol/L (136-145); TROPONIN-I 0.036 ng/mL (0.000-0.060); UREA NITROGEN 25 mg/dL (7-18); eGFR NON AFRICAN AMERICAN 55 mL/min (90-120)
[2018-12-31 13:38] LABS: POTASSIUM - SERUM 2.7 mmol/L (3.5-5.1)
--- NOTE | 2018-12-31 13:38 | NUR ---
NOTIFIED BY LAB OF CRITICAL POTASSIUM OF 2.7. TREATING PROVIDER NOTIFIED AND PT'S PRIMARY NURSE MADE AWARE.
[2018-12-31 14:30] VITALS: BP 90/46
[2018-12-31 15:24] LABS: APPEARANCE CLEAR (CLEAR); BILIRUBIN NEGATIVE (NEGATIVE); COLOR YELLOW (YELLOW); GLUCOSE NEGATIVE (NEGATIVE); KETONE NEGATIVE (NEGATIVE); NITRITE NEGATIVE (NEGATIVE); PROTEIN NEGATIVE (NEGATIVE); SPECIFIC GRAVITY 1.025 (1.005-1.020); UROBILINOGEN NORMAL (NORMAL)
[2018-12-31 15:30] VITALS: BP 98/59
[2018-12-31 16:00] VITALS: BP 113/64
--- NOTE | 2018-12-31 17:06 | NUR ---
TRANSFER FROM ER BY W/C. NEGRITOINTED TO ROOM. CALL LIGHT IN REACH. WILL CONT. PLAN OF CARE.
[2018-12-31 17:32] VITALS: BP 114/64; BMI 25.7
[2018-12-31 20:00] VITALS: BP 127/66
--- NOTE | 2018-12-31 20:05 | NUR ---
RESUMING PATIENT CARE. PATIENT IS ALERT AND ORIENTED. RESTING COMFORTABLY IN BED. RESPIRATIONS ARE EVEN AND UNLABORED. NO S/S OF DISTRESS. NO C/O PAIN. CALL LIGHT WITHIN REACH. WILL CPOC.
[2019-01-01] VITALS: BP 121/55
[2019-01-01 04:00] VITALS: BP 112/58
[2019-01-01 05:38] LABS: BASOPHILS 0.3 % (0-2); EOSINOPHILS 1.8 % (0-7); HEMATOCRIT 38.2 % (42.0-54.0); HEMOGLOBIN 12.9 g/dL (13.5-17.5); IMMATURE GRANULOCYTES 0.3 % (0-5); LYMPHOCYTES 27.4 % (15-50); MCH 31.9 pg (26.0-34.0); MCHC 33.8 g/dL (31.0-37.0); MCV 94.3 fL (80.0-100.0); MEAN PLATELET VOLUME 9.7 fL (7.4-10.4); MONOCYTES 9.2 % (2-11); PLATELET COUNT 172 10x3/uL (130-400); RBC 4.05 10x6/uL (4.20-6.10)
[2019-01-01 05:43] LABS: WBC 3.8 10x3/uL (4.8-10.8)
[2019-01-01 06:00] LABS: BILIRUBIN - TOTAL 0.51 mg/dL (0.2-1.3); CARBON DIOXIDE 31.9 mmol/L (21.0-32.0); CREATININE - SERUM 1.1 mg/dL (0.6-1.3); MAGNESIUM - SERUM 2.1 mg/dL (1.8-2.4); PROTEIN - SERUM 6.6 g/dL (6.4-8.2)
[2019-01-01 06:03] LABS: POTASSIUM - SERUM 2.9 mmol/L (3.5-5.1)
[2019-01-01 09:19] VITALS: BP 140/62
[2019-01-01 13:19] VITALS: Ht 188 cm; Wt 90.9 kg
[2019-01-01 13:53] LABS: CKMB 2.5 U/L (0.0-3.6); CREATINE KINASE 108 UL (21-232)
[2019-01-01 13:56] LABS: TROPONIN-I 0.244 ng/mL (0.000-0.060)
--- NOTE | 2019-01-01 14:04 | NUR ---
EKG COMPLETED. NSR.
--- NOTE | 2019-01-01 15:22 | NUR ---
AMBULATORY ADLIB. REFUSES SCDS.
[2019-01-01 18:22] LABS: CKMB 1.7 U/L (0.0-3.6); CREATINE KINASE 123 UL (21-232)
[2019-01-01 18:28] LABS: TROPONIN-I 0.249 ng/mL (0.000-0.060)
--- NOTE | 2019-01-01 19:45 | NUR ---
RESUMING PATIENT CARE. PATIENT IS ALERT AND ORIENTED, RESTING COMFORTABLY IN BED. RESPIRATIONS ARE EVEN AND UNLABORED. NO S/S OF DISTRESS. NO C/O PAIN. DENIES NEEDS AT THIS TIME. WILL CPOC.
[2019-01-01 20:00] VITALS: BP 154/73
[2019-01-02] VITALS: BP 110/67
[2019-01-02 01:04] LABS: CKMB 1.6 U/L (0.0-3.6); CREATINE KINASE 87 UL (21-232); TROPONIN-I 0.177 ng/mL (0.000-0.060)
[2019-01-02 04:00] VITALS: BP 135/78
--- NOTE | 2019-01-02 04:00 | NUR ---
PATIENT RESTING COMFORTABLY IN BED. RESPIRATIONS ARE EVEN AND UNLABORED. NO S/S OF DISTRESS. CALL LIGHT WITHIN REACH. WILL CPOC.
[2019-01-02 04:57] LABS: BASOPHILS 0.3 % (0-2); EOSINOPHILS 1.3 % (0-7); HEMATOCRIT 38.4 % (42.0-54.0); HEMOGLOBIN 13.1 g/dL (13.5-17.5); IMMATURE GRANULOCYTES 0.3 % (0-5); LYMPHOCYTES 24.2 % (15-50); MCHC 34.1 g/dL (31.0-37.0); MCV 93.7 fL (80.0-100.0); MEAN PLATELET VOLUME 9.9 fL (7.4-10.4); MONOCYTES 7.6 % (2-11); NEUTROPHILS 66.3 % (40-80); PLATELET COUNT 165 10x3/uL (130-400)
[2019-01-02 05:18] LABS: ALBUMIN 2.9 g/dL (3.4-5.0); ANION GAP 11.4 mmol/L (8-16); BILIRUBIN - TOTAL 0.28 mg/dL (0.2-1.3); CARBON DIOXIDE 26.8 mmol/L (21.0-32.0); CREATININE - SERUM 1.2 mg/dL (0.6-1.3); MAGNESIUM - SERUM 2.2 mg/dL (1.8-2.4); POTASSIUM - SERUM 3.2 mmol/L (3.5-5.1); PROTEIN - SERUM 6.4 g/dL (6.4-8.2)
--- NOTE | 2019-01-02 09:07 | NUR ---
TELEMETRY SR. UP AMBULATING HALLWAY. WILL CONT. PLAN OF CARE.
[2019-01-02] MEDS ORDERED: AMIODARONE HCL200 MG PO (12:22)
--- NOTE | 2019-01-02 13:14 | MORECARE ---
CASE MANAGEMENT DISCHARGE SUMMARY PATIENT: ISHA ROPER UNIT: [id number] ADM DATE: 12/31/18 AGE: 88 : [birth year] SEX: M ROOM/BED: D.2119 AUTHOR: HEMA BHAT PHYSICIAN: REFERRING PHYSICIAN: THIAGO REYEZ MD DATE OF SERVICE: 01/02/19 Discharge Plan Patient Name: ISHA ROPER Facility: [facility]:[place] : 1930 Planned Disposition: Home Anticipated Discharge Date: 01/02/19 Discharge Date: Expected LOS: 2 Initial Reviewer: [email or web address] Initial Review Date: 01/02/2019 Generated: 01/02/19 2:14 pm Coverage Notice Reviewer: [email or web address] Clarita Mendieta [place] Notice Issued Date-Time: 01/01/2019 13:57 Notice Type: Medicare Outpatient Observation Notice Notice Delivered To: Patient Relationship to Patient: Self Conservation Coordinator Name: Delivery Method: HAND - Hand Delivered Yeni Days: Prior Verbal Notification: Recipient Understood Notice: Yes Recipient Signature: Yes Med Rec Note Co-signed by Attending: Coverage Notice Comment: SPOKE WITH PATIENT AND HIS , MADY, AFTER VERBAL CONSENT OBTAINED. Patient Name: ISHA ROPER Page [phone] at 1314 All edits/amendments must be made on the electronic document DICTATION DATE: 01/02/19 1313 SETTER OFF: STACI 01/02/19 1313 RPT#: [id number] [place] DATE: STATUS: ADM IN [facility] [address] [place] [address] END OF REPORT
--- NOTE | 2019-01-02 13:55 | NUR ---
IV AND TELEMETRY DCD. DC PLANS GIVEN. UNDAERSTANDING VOICED. ESCORTED TO CAR BY W/C.
--- NOTE | 2019-01-04 10:39 | CN ---
PATIENT NAME:ISHA ROPER MEDICAL RECORD: [id number] : 32 LOCATION:D. D.2119 ADMIT DATE: 12/31/18 ACCOUNT: [id number] CONSULTING PHYSICIAN: MALINDA ALBA MD REFERRING PHYSICIAN: THIAGO REYEZ MD DATE OF CONSULTATION: 01/01/2019 HISTORY OF PRESENT ILLNESS: An 88-year-old gentleman admitted with a history of coronary artery disease, status post intervention, has a history of sick sinus syndrome, status post pacemaker placement, was scheduled to have a total knee replacement. However, had UTI, had onset yesterday of chest pain, tightness, presented to the ER, was found to be in atrial fibrillation with RVR. Cardiac enzymes negative so far. We are asked to see him concerning his cardiovascular status. PAST MEDICAL HISTORY: Include: 1. History of coronary artery disease. 2. Sick sinus syndrome, status post pacemaker placement. 3. Hypertension. 4. Dyslipidemia. 5. Hypothyroidism, on replacement. 6. Hyperglycemia. MEDICATIONS: Include Synthroid 75 mcg daily, losartan 100/25 every day, bisoprolol 10/6.25 every day. SOCIAL HISTORY: He is a nonsmoker, nondrinker. Easily takes care of all his ADLs. Stays quite active for 88 years of age. ALLERGIES: PENICILLIN, MORPHINE, LATEX. REVIEW OF SYSTEMS: The patient reports easy bruising but reports no swollen glands. The patient reports no fever, no night sweats, no significant weight gain, no significant weight loss. No significant exercise tolerance. The patient reports no dry eyes, no irritation, no vision change. Patient reports no difficulty hearing and no ear pain. Patient reports no frequent nose bleeds or nose and sinus problems. Patient reports on arm pain on exertion. No shortness of breath while lying down. No history of heart murmur. Patient reports no cough, no wheezing or coughing up blood. Patient reports no abdominal pain, no vomiting. Normal appetite. No diarrhea and not vomiting blood. No nausea and no constipation. Patient reports no incontinence. No difficulty urinating. No hematuria. No increased frequency. Patient reports no muscle aches. No weakness, no arthralgias, no back pain. No swelling of the extremities. Patient reports no abnormal mole, no jaundice, no rashes. Reports no loss of consciousness. No weakness and no numbness. No seizures, dizziness, or headaches. The patient reports no depression, no sleep disturbance, feeling safe in a relationship and no alcohol abuse. Patient reports on fatigue. Reports no runny nose or sinus pressure. No itching, no hives, and no frequent sneezing. PHYSICAL EXAMINATION: GENERAL: Pleasant gentleman in no acute distress. VITAL SIGNS: Blood pressure 112/54, pulse 65 and regular. HEENT: Normocephalic, atraumatic. NECK: No bruits noted. CONSULT REPORT [id number] ISHA ROPER HEART: Regular, II/ systolic ejection murmur. LUNGS: Good air excursion. ABDOMEN: Soft, nontender. EXTREMITIES: Pulses 2+ with no edema. NEUROLOGIC: Grossly intact. DIAGNOSTIC DATA: ECG on admission showed atrial fibrillation, minor nonspecific ST-T changes, currently shows normal sinus rhythm. IMPRESSION: Paroxysmal atrial fibrillation. The patient has previously been on Cordarone. We decreased this secondary to breakthroughs. At this point in time, particularly in view of possible total knee replacement in the future. We will restart Cordarone 200 b.i.d. Thank you for the consultation. TRANSINT:[id number] Voice Confirmation ID: [id number] DOCUMENT ID: [id number] MALINDA ALBA MD at 1039 CC: [id number] DICTATION DATE: 01/01/19835 TOLL OPERATOR: 01/01/19 0852 DIS IN 01/02/19 [facility] [address] [place] [address]
--- NOTE | 2019-01-04 10:39 | EC ---
PATIENT:ISHA ROPER DATE OF SERVICE: 12/31/18 SEX: M MEDICAL RECORD: [id number] DATE OF : [birth year] LOCATION:D.M2 D.211 AGE OF PATIENT: 88 ADMISSION DATE: 12/31/18 REFERRING PHYSICIAN: INTERPRETING PHYSICIAN: MALINDA ALBA MD ECHOCARDIOGRAM REPORT ECHO CHARGES 4 ECHO COMPLETE Date: 01/01/19 CLINICAL DIAGNOSIS: A-FIB ECHOCARDIOGRAPHIC MEASUREMENTS (adult normal given) AC root (d.<3.7cm) 3.7 cm LV Septum d (<1.2 cm> 1.4 cm Valve Excursion 2.2 cm LV Septum (systole) 1.9 cm Left Atria (s.<4.0cm> 4.6 cm LVPW d(<1.2cm) 1.7 cm RV (d.<2.3cm) 2.4 cm LVPW (sytole) 2.3 cm LV diastole(<5.6CM) 5.6 cm MV E-F(>70mm/sec) cm LV systole 3.9 cm LVOT Diameter 2.0 cm MV exc.(>10mm) cm Est.ejection fraction (50-75%) % DOPPLER: LVIT cm/sec A 77.0 cm/sec E 120 cm/sec LA cm/sec RVSP 41.0 mmHg LVOT 208 cm/sec AOP1/2T m/s Asc. Ao 258 cm/sec RVOT 101 cm/sec RA cm/sec PA 138 cm/sec AV Gradient Peak 27.0 mmHg AV Mean 13.0 mmHg AV Area 2.6 cm MV Gradient Peak 4.8 mmHg MV Mean 1.5 mmHg MV Area cm COMMENTS: Brass Burnisher: 1 CHARITO BLANCHARDOE Livestock Farm Workers: 3 Dr. Parker TAPE# PACS Pericardial Effusion N DATE OF SERVICE: Adequate 2-D, color-flow and spectral Doppler, and M-mode. Mild LVH. LV internal dimensions are normal. LV appears to be mildly globally hypo with LV function lower limits of normal, mildly reduced at 45% to 50%. Aortic valve sclerosis without stenosis by Doppler interrogation. Left atrium is dilated at 4.6 cm. Mitral valve shows no prolapse. Trace MR. Right-sided chambers are grossly normal. Trace TR. ECHOCARDIOGRAM REPORT [id number] ISHA ROPER TRANSINT:[id number] Voice Confirmation ID: [id number] DOCUMENT ID: [id number] MALINDA ALBA MD at 1039 CC: [id number] DICTATION DATE: 01/01/19 145 DIRECTOR INSTRUCTIONAL MATERIAL: 01/01/191928 DIS IN 01/02/19 [facility] [address] [place] [id number]
== END 2019-01-02 13:56 | disposition home or self-care (01) ==
LOC: D.ER 12:32 → D.EDHOLD 15:33 → OBSVTIME 15:33 → D.M2 16:06
PROVIDERS: Emergency Medicine; Family Medicine; ADMIT Emergency Medicine; ATTEND Emergency Medicine
DX: I48.91 Unspecified atrial fibrillation (principal); N39.0 Urinary tract infection, site not specified; Z95.0 Presence of cardiac pacemaker; I10 Essential (primary) hypertension; I25.10 Atherosclerotic heart disease of native coronary artery without angina pectoris; D72.819 Decreased white blood cell count, unspecified

== ENCOUNTER 2019-01-27 12:33 | Inpatient (IN) | payer MEDICARE, OTHER ==
[~2019-01-27 12:33] MED LIST changes: +AMIODARONE HCL200 MG PO
[2019-02-26] MEDS ORDERED: AREDS PO (10:33)
[2019-02-26] MEDS ORDERED: [UNRECOGNIZED DRUG - OTHER] PO (10:34)
[2019-02-26] MEDS ORDERED: FISH OIL 1,0001 CA1 PO (10:34)
[2019-02-26] MEDS ORDERED: ALEVE220 MG PO (10:35)
[2019-02-26 11:28] LABS: ANION GAP 8.6 mmol/L (8-16); BASOPHILS 0.2 % (0-2); CARBON DIOXIDE 32.6 mmol/L (21.0-32.0); CREATININE - SERUM 1.2 mg/dL (0.6-1.3); EOSINOPHILS 0.4 % (0-7); HEMATOCRIT 39.4 % (42.0-54.0); HEMOGLOBIN 13.5 g/dL (13.5-17.5); IMMATURE GRANULOCYTES 0.2 % (0-5); LYMPHOCYTES 12.4 % (15-50); MCH 32.8 pg (26.0-34.0); MCHC 34.3 g/dL (31.0-37.0); MCV 95.6 fL (80.0-100.0); MEAN PLATELET VOLUME 9.6 fL (7.4-10.4); MONOCYTES 4.6 % (2-11); NEUTROPHILS 82.2 % (40-80); POTASSIUM - SERUM 3.2 mmol/L (3.5-5.1); RBC 4.12 10x6/uL (4.20-6.10); RDW 13.3 % (11.5-14.5); WBC 5.4 10x3/uL (4.8-10.8)
[2019-02-26 11:55] LABS: PLATELET COUNT 219 10x3/uL (130-400)
[2019-02-26 12:05] LABS: APPEARANCE CLEAR (CLEAR); APTT 30.4 SECONDS (22.8-39.4); BILIRUBIN NEGATIVE (NEGATIVE); COLOR YELLOW (YELLOW); GLUCOSE NEGATIVE (NEGATIVE); INR 1.01 (0.85-1.17); KETONE NEGATIVE (NEGATIVE); NITRITE NEGATIVE (NEGATIVE); PROTEIN NEGATIVE (NEGATIVE); PROTIME 13.2 SECONDS (11.6-15.0); SPECIFIC GRAVITY 1.015 (1.005-1.020); UROBILINOGEN NORMAL (NORMAL)
[2019-02-26 12:06] LABS: BACTERIA FEW /hpf (NONE SEEN); EPITHELIAL CELLS 0-5 /hpf (0-5); WHITE CELLS - URINE 0-5 /hpf (0-5)
[2019-03-02] VITALS (11 sets, daily range): BP systolic 116–153; BP diastolic 62–83; BMI 25.7
--- NOTE | 2019-03-02 12:21 | NUR ---
PATIENT ARRIVED IN OR 5 WITH SMALL, APPROX 5CM, SKIN TEAR ON LEFT UPPER UNDER ARM. A 4X4 WAS FOLDED AND PLACED UNDER A TEGRADERM DRESSING TO PROTECT THE EXPOSED WOUND.
--- NOTE | 2019-03-02 20:00 | NUR ---
PT SITTING UP IN BED, NO SIGNS OF DISTRESS. ALERT AND ORIENTED. IV RIGHT FA INFUSING 1/2 NS @ 100. PT STATES PAIN 12/21. REQUESTED AND GIVEN ZANAFLEX WITH [facility] MEDS. LEFT LEG ON CPM AT THIS TIME. SCDS ON. BED ALARM ON. DENIES OTHER NEEDS. CL IN REACH, WILL CONT TO MONITOR
[2019-03-03 01:28] VITALS: BP 122/59
--- NOTE | 2019-03-03 05:20 | NUR ---
PLACED ON CPM
[2019-03-03 05:34] VITALS: BP 105/56
[2019-03-03 05:39] LABS: HEMATOCRIT 31.6 % (42.0-54.0); HEMOGLOBIN 10.6 g/dL (13.5-17.5); MCHC 33.5 g/dL (31.0-37.0); MCV 95.5 fL (80.0-100.0); MEAN PLATELET VOLUME 9.4 fL (7.4-10.4); RBC 3.31 10x6/uL (4.20-6.10); RDW 13.4 % (11.5-14.5); WBC 6.7 10x3/uL (4.8-10.8)
--- NOTE | 2019-03-03 06:20 | NUR ---
PT CONFUSED UPON ENTERING ROOM, HAD INCONTINENT EPISODE IN BED AND TAKEN HIMSELF OFF THE CPM. STATED HE DID NOT KNOW WHERE HE WAS FOR A FEW MINUTES AND TRIED TO GET UP. CHANGED PT LINENS AND PLACED BACK ON CPM. BED ALARM ON. WILL CONT TO MONITOR
[2019-03-03 07:53] LABS: ANION GAP 11.4 mmol/L (8-16); CALCIUM 7.5 mg/dL (8.5-10.1); CARBON DIOXIDE 26.5 mmol/L (21.0-32.0); CREATININE - SERUM 1.4 mg/dL (0.6-1.3); POTASSIUM - SERUM 3.9 mmol/L (3.5-5.1)
--- NOTE | 2019-03-03 09:00 | NUR ---
PT AAOX4 NO SIGNS OF DISTRESS NOTED WILL CONTINUE TO MONITOR CL IN REACH
[2019-03-03 09:10] VITALS: BP 107/63
[2019-03-03 13:04] VITALS: BP 119/73
--- NOTE | 2019-03-03 16:21 | MORECARE ---
CASE MANAGEMENT DISCHARGE SUMMARY PATIENT: ISHA ROPER UNIT: [id number] ADM DATE: 03/02/19 AGE: 88 : 31 SEX: M ROOM/BED: D.2209 AUTHOR: PERLITA,DOC PHYSICIAN: REFERRING PHYSICIAN: ZAK LUCAS MD DATE OF SERVICE: 03/03/19 Discharge Plan Patient Name: ISHA ROPER Facility: [facility]:[place] : 1930 Planned Disposition: Home Anticipated Discharge Date: Discharge Date: Expected LOS: Initial Reviewer: [email or web address] Initial Review Date: 03/02/2019 Generated: 03/03/19 5:21 pm Comments DCP- Discharge Planning Updated by [email or web address]: Dulce Maria Rogers on 03/03/19 3:[address] Patient Name: ISHA ROPER Admission Status: Elective Accout number: [id number] Admission Date: 03-02-2019 : 1930 Admission Diagnosis: Attending: ZAK LUCAS Current LOS: 1 Anticipated DC Date: Planned Disposition: Home Primary Insurance: MEDICARE A & B Discharge Planning Comments: CM met with patient to complete initial dc planning assessment. CM educated patient on the CM role and verbal consent given by patient to complete assessment. Patient lives at home with his where he was independent with his. At discharge patient plans to return home and feels this is a safe discharge. Patient will either go to [facility] or home health. Patient denied known discharge needs at this time. Patient has had their DME delivered to the house that was set up by Dr Lucas's office. Walker, CPM, BSC and cane CM will continue to follow and will assist as needed with dc plans/needs. Railroad Shop Inspector: Dulce Maria Rogers DCPIA - Discharge Planning Initial Assessment Updated by [email or web address]: Dulce Maria Rogers on 03/03/19 4:15 pm * Is the patient Alert and Oriented? Yes * How many steps to enter\exit or inside your home? * PCP ZACHARY * Pharmacy [facility] * Preadmission Environment Home with Family * ADLs Independent * Equipment Bedside Commode Cane Walker * Other Equipment CPM * List name and contact numbers for known caregivers / representatives who currently or will assist patient after discharge: BIANKA () [phone] * Verbal permission to speak to the caregivers and representatives has been obtained from the patient. N/A * Community resources currently utilized None * Additional services required to return to the preadmission environment? Yes * Can the patient safely return to the preadmission environment? Yes * Has this patient been hospitalized within the prior 30 days at any hospital? No Patient Name: ISHA ROPER Page [phone] at 1621 All edits/amendments must be made on the electronic document DICTATION DATE: 03/03/191620 COLLECTIONS CURATOR: STACI 03/03/191620 RPT#: [id number] [place] DATE: STATUS: ADM IN [facility] [address] [place] [address] END OF REPORT
[2019-03-03 16:44] VITALS: BP 137/53
--- NOTE | 2019-03-03 18:45 | NUR ---
I have reviewed this patient and I concur with the Shift Assessment completed by the Licensed Practical Nurse today this shift.
--- NOTE | 2019-03-03 20:30 | NUR ---
PT SITTING UP IN BED, NO SIGNS OF DISTRESS. ALERT AND ORIENTED. STATES PAIN 7/10 IN LEFT LEG. TAKEN OFF CPM AT THIS TIME. GAVE NORCO ORDERED FOR PAIN. IV RIGHT HAND SL. SCDS ON BILAT. BED ALARM ON. CL IN REACH, WILL CONT TO MONITOR
[2019-03-03 20:57] VITALS: BP 115/51
[2019-03-04 01:42] VITALS: BP 104/50
--- NOTE | 2019-03-04 04:00 | NUR ---
PT STATES PAIN 7/10 IN LEFT LEG. GAVE NORCO ORDERED. WILL CONT TO MONITOR
[2019-03-04 05:00] LABS: HEMATOCRIT 29.8 % (42.0-54.0); MCH 32.5 pg (26.0-34.0); MCHC 33.6 g/dL (31.0-37.0); MCV 96.8 fL (80.0-100.0); MEAN PLATELET VOLUME 9.9 fL (7.4-10.4); RBC 3.08 10x6/uL (4.20-6.10); RDW 13.9 % (11.5-14.5); WBC 7.1 10x3/uL (4.8-10.8)
[2019-03-04 05:24] VITALS: BP 108/50
--- NOTE | 2019-03-04 08:45 | NUR ---
PATIENT IN BED WITH IV INTACT. NO COMPLAINTS OR SIGNS OF DISTRESS AT THIS TIME. CALL LIGHT WITHIN REACH.
[2019-03-04 12:29] VITALS: BMI 25.6
--- NOTE | 2019-03-04 12:30 | NUR ---
PATIENT SITTING UP IN CHAIR AT THIS TIME. IV INTACT. NO COMPLAINTS. CALL LIGHT WITHIN REACH. FAMILY AT BEDSIDE.
[2019-03-04 13:26] VITALS: BP 135/48
[2019-03-04 17:25] VITALS: BP 102/47
--- NOTE | 2019-03-04 18:30 | NUR ---
PATIENT CPM PLACED AT THIS TIME.
--- NOTE | 2019-03-04 19:50 | NUR ---
LYING IN BED. ALERT AND ORIENTED X4. RESP EVEN AND NONLABORED. RATES PAIN 4 IN LT KNEE. DRSG NOTED TO LT KNEE. SCDS IN USE BILAT. CPM ON LLE. PEDAL PULSES STRONG. USES URINAL. SALINE LOCK NOTED TO RT HAND. STEPHON ALARM IN USE FOR PT SAFETY. SR ELEVATED X2. CL IN REACH.
[2019-03-04 20:00] VITALS: BP 113/49
--- NOTE | 2019-03-04 20:25 | NUR ---
MEDICATED WITH NORCO FOR C/O PAIN IN LT KNEE. CL IN REACH.
[2019-03-05] VITALS: BP 101/53
[2019-03-05 04:00] VITALS: BP 115/50
--- NOTE | 2019-03-05 08:00 | NUR ---
PATIENT IN BED WITH IV INTACT. CPM ON AND WORKING. BSCDS ON AND WORKING. IV INTACT. CALL LIGHT WITHIN REACH.
[2019-03-05 08:15] VITALS: BP 106/44
[2019-03-05 12:24] VITALS: BP 123/56
--- NOTE | 2019-03-05 12:30 | NUR ---
PATIENT SITTING UP IN CHAIR AT THIS TIME WITH NO COMPLAINTS OR SIGNS OF DISTRESS. FAMILY AT BEDSIDE. CALL David PEREZ.
--- NOTE | 2019-03-05 16:04 | OP ---
PATIENT NAME: ISHA ROPER MEDICAL RECORD: [id number] :32 LOCATION:D.MS [id number] ADMISSION DATE:03/02/19 SURGEON: ZAK LUCAS MD DATE OF OPERATION: 03/02/2019 PREOPERATIVE DIAGNOSIS: Degenerative arthritis of the left knee. POSTOPERATIVE DIAGNOSIS: Degenerative arthritis of the left knee. PROCEDURE: Left total knee arthroplasty. SURGEON: Zak Lucas MD CAPACITY PLANNING ANALYST: LUIS M Groves INTRAOPERATIVE COMPLICATIONS: None. 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 IMPLANTS USED: [place] triathlon total knee arthroplasty, size 7 femoral component, 9 polyethylene, tibial insert times 3, size 7 tibial baseplate with a size 33 patellar component. OPERATIVE SUMMARY IN DETAIL: After obtaining the appropriate preoperative orthopedic surgery consent as well as anesthetic consultation, evaluation, and clearance, the patient was brought to the operating room and placed on the table in supine position. After general laryngeal mask airway was administered, tourniquet was placed in the proximal aspect of the left lower extremity. Left lower extremity was then prepped and draped in routine sterile fashion. The leg was elevated and exsanguinated, tourniquet was inflated to 350 mmHg. Midline incision was taken down for paramedian arthrotomy. Patella was everted. Distal femoral soft tissue was excised. Distal femoral intramedullary guide hole was created and distal femoral cuts were made using intramedullary guidance. The entire proximal tibia was then exposed. Further soft tissue excision was then followed by intramedullary guided hole for intramedullary guide to cut, the proximal tibia was cut. Measurements were taken. Chamfer cuts for size 7 distal femur were then made. Trial components were put into place. Final adjustments were made and taken through range of motion and found to be stable that corresponding to the above-mentioned size. Final distal femoral and proximal tibial preparations were followed by excision of the arthritic surface of the patella. Final patellar preparations were made followed by pulsatile lavage irrigation of the cavity of the knee. Knee ends were dried after they were exposed and final components were cemented into place. All excess cement was removed before it was allowed to harden. After the cement was allowed to harden, the knee was taken through a range of motion and found to be stable in all planes, including good patellofemoral tracking. Having completed this, the wound was again irrigated and a gram of tobramycin and a gram of vancomycin along with a gram of TXA was placed in the knee. Paramedian arthrotomy was closed with #[address] Bandar White followed by #1 Vicryl, 2-0 Vicryl, and skin yany. Sterile dressings were applied. Tourniquet was deflated. The patient was awakened and taken to recovery room in stable condition. All final needle and sponge counts were correct. TRANSINT:[id number] Voice Confirmation ID: [id number] DOCUMENT ID: [id number] OPERATIVE REPORT [id number] ISHA ROPER MD, ZAK MORA at 1604 CC: [id number] DICTATION DATE: 03/02/19 1218 MEDICAL OFFICE ASSISTANT INSTRUCTOR: 03/02/19 1302 ADM IN [facility] [address] [place] [address]
--- NOTE | 2019-03-05 16:09 | MORECARE ---
CASE MANAGEMENT DISCHARGE SUMMARY PATIENT: ISHA ROPER UNIT: [id number] ADM DATE: 03/02/19 AGE: 88 : 31 SEX: M ROOM/BED: D.2209 AUTHOR: PERLITA,DOC PHYSICIAN: REFERRING PHYSICIAN: ZAK LUCAS MD DATE OF SERVICE: 03/05/19 Discharge Plan Patient Name: ISHA ROPER Facility: [facility]:[place] : 1930 Planned Disposition: Home Anticipated Discharge Date: Discharge Date: Expected LOS: Initial Reviewer: [id number] Initial Review Date: 03/02/2019 Generated: 03/05/19 5:09 pm Comments DCP- Discharge Planning Updated by [email or web address]: Dulce Maria Rogers on 03/03/19 3:[address] Patient Name: ISHA ROPER Admission Status: Elective Accout number: [id number] Admission Date: 03-02-2019 : 1930 Admission Diagnosis: Attending: ZAK LUCAS Current LOS: 1 Anticipated DC Date: Planned Disposition: Home Primary Insurance: MEDICARE A & B Discharge Planning Comments: CM met with patient to complete initial dc planning assessment. CM educated patient on the CM role and verbal consent given by patient to complete assessment. Patient lives at home with his where he was independent with his. At discharge patient plans to return home and feels this is a safe discharge. Patient will either go to [facility] or home health. Patient denied known discharge needs at this time. Patient has had their DME delivered to the house that was set up by Dr Lucas's office. Walker, CPM, BSC and cane CM will continue to follow and will assist as needed with dc plans/needs. Funeral Service Manager: Dulce Maria Rogers DCPIA - Discharge Planning Initial Assessment Updated by [email or web address]: Dulce Maria Rogers on 03/03/19 4:15 pm * Is the patient Alert and Oriented? Yes * How many steps to enter\exit or inside your home? * PCP ZACHARY * Pharmacy [facility] * Preadmission Environment Home with Family * ADLs Independent * Equipment Bedside Commode Cane Walker * Other Equipment CPM * List name and contact numbers for known caregivers / representatives who currently or will assist patient after discharge: BIANKA () [phone] * Verbal permission to speak to the caregivers and representatives has been obtained from the patient. N/A * Community resources currently utilized None * Additional services required to return to the preadmission environment? Yes * Can the patient safely return to the preadmission environment? Yes * Has this patient been hospitalized within the prior 30 days at any hospital? No External Providers External Provider: [facility] Next Contact Date: Service Request Date: Service Type: Resolution: Reviewer: Comments: Coverage Notice Reviewer: [email or web address] Clarita Rogers Notice Issued Date-Time: 03/05/2019 15:45 Notice Type: IM Discharge Notice Notice Delivered To: Patient Relationship to Patient: Delicatessen Clerk Name: Delivery Method: HAND - Hand Delivered Yeni Days: Prior Verbal Notification: Recipient Understood Notice: Yes Recipient Signature: Yes Med Rec Note Co-signed by Attending: Coverage Notice Comment: Last DP export: 03/03/19 3:21 p Patient Name: ISHA ROPER Page [id number] at 1609 All edits/amendments must be made on the electronic document DICTATION DATE: 03/05/19 160 FUR TRIMMER: STACI 03/05/19 160 RPT#: [id number] DC DATE: STATUS: ADM IN [facility] [address] [place] [address] END OF REPORT
--- NOTE | 2019-03-05 16:21 | MORECARE ---
CASE MANAGEMENT DISCHARGE SUMMARY PATIENT: ISHA ROPER UNIT: [id number] ADM DATE: 03/02/19 AGE: 88 : 31 SEX: M ROOM/BED: D.2209 AUTHOR: PERLITA,DOC PHYSICIAN: REFERRING PHYSICIAN: ZAK LUCAS MD DATE OF SERVICE: 03/05/19 Discharge Plan Patient Name: ISHA ROPER Facility: [facility]:[place] : 1930 Planned Disposition: Home Anticipated Discharge Date: Discharge Date: Expected LOS: Initial Reviewer: [email or web address] Initial Review Date: 03/02/2019 Generated: 03/05/19 5:20 pm Comments DCP- Discharge Planning Updated by [email or web address]: Dulce Maria Rogers on 03/05/19 3:[address] SPOKE WITH PATIENT ABOUT CONCERNS ABOUT GOING HOME. THEY WOULD LIKE TO GO TO [facility] WHEN ABLE TO DC FROM [facility]. [facility] [place]. IMM SERVED AND EXPLAINED. SENT CLINICALS TO [place] FOR REVIEW AND SPOKE WITH SUSAN. PLUMMER TO FOLLOW AND ASSIST WITH DC PLANNING DCP- Discharge Planning Updated by [email or web address]: Dulce Maria Rogers on 03/03/19 3:[address] Patient Name: ISHA ROPER Admission Status: Elective Accout number: [id number] Admission Date: 03-02-2019 : 1930 Admission Diagnosis: Attending: ZAK LUCAS Current LOS: 1 Anticipated DC Date: Planned Disposition: Home Primary Insurance: MEDICARE A & B Discharge Planning Comments: CM met with patient to complete initial dc planning assessment. CM educated patient on the CM role and verbal consent given by patient to complete assessment. Patient lives at home with his where he was independent with his. At discharge patient plans to return home and feels this is a safe discharge. Patient will either go to [facility] [place] or home health. Patient denied known discharge needs at this time. Patient has had their DME delivered to the house that was set up by Dr Lucas's office. Walker, CPM, BSC and cane CM will continue to follow and will assist as needed with dc plans/needs. Insurance Appraiser: Dulce Maria Rogers DCPIA - Discharge Planning Initial Assessment Updated by [email or web address]: Dulce Maria Rogers on 03/03/19 4:15 pm * Is the patient Alert and Oriented? Yes * How many steps to enter\exit or inside your home? * PCP ZACHARY * Pharmacy [facility] * Preadmission Environment Home with Family * ADLs Independent * Equipment Bedside Commode Cane Walker * Other Equipment CPM * List name and contact numbers for known caregivers / representatives who currently or will assist patient after discharge: BIANKA () [phone] * Verbal permission to speak to the caregivers and representatives has been obtained from the patient. N/A * Community resources currently utilized None * Additional services required to return to the preadmission environment? Yes * Can the patient safely return to the preadmission environment? Yes * Has this patient been hospitalized within the prior 30 days at any hospital? No Coverage Notice Reviewer: [id number] Clarita Rogers Notice Issued Date-Time: 03/05/2019 15:45 Notice Type: IM Discharge Notice Notice Delivered To: Patient Relationship to Patient: Explosives Mixer Operator Name: Delivery Method: HAND - Hand Delivered Yeni Days: Prior Verbal Notification: Recipient Understood Notice: Yes Recipient Signature: Yes Med Rec Note Co-signed by Attending: Coverage Notice Comment: Reviewer: [email or web address] Clarita Rogers Notice Issued Date-Time: 03/05/2019 15:45 Notice Type: Patient Choice Letter Notice Delivered To: Family Member Relationship to Patient: Spouse Explosives Mixer Operator Name: MRS ROPER Delivery Method: - Yeni Days: Prior Verbal Notification: Recipient Understood Notice: Recipient Signature: Med Rec Note Co-signed by Attending: Coverage Notice Comment: Last DP export: 03/05/19 3:09 p Patient Name: ISHA ROPER Page [id number] at 1621 All edits/amendments must be made on the electronic document DICTATION DATE: 03/05/191619 SCREENER AND BLENDER: STACI 03/05/191619 RPT#: [id number] MD DATE: STATUS: ADM IN [facility] [address] [place] [address] END OF REPORT
[2019-03-05 16:26] VITALS: BP 115/48
--- NOTE | 2019-03-05 17:48 | NUR ---
PATIENT IN BED WITH NO COMPLAINTS OR SIGNS OF DISTRESS. [facility]CT. [facility].
--- NOTE | 2019-03-05 19:25 | NUR ---
LYING IN BED. CPM ON LT KNEE. LT KNEE DRSG INTACT. SCDS IN USE. SALINE LOCK NTOED TO RT HAND. RATES PAIN IN LT KNEE 1. STATES HES DOING WELL. RESP EVEN AND NONLABORED. NO DISTRESS. SR ELEVATED X2. CL IN REACH. STEPHON ALARM IN USE.
[2019-03-05 20:00] VITALS: BP 139/53
[2019-03-06] VITALS: BP 114/51
--- NOTE | 2019-03-06 02:25 | NUR ---
TRIED TO GET OOB. BED ALARM ACTIVATING. CONFUSED. STATED HE NEEDED TO USE THE URINAL BUT FORGOT HE HAD SURGERY. LATER REALIZED THAT HE IS CONFUSED. SR ELEVATED X2. CL IN REACH.
[2019-03-06 04:00] VITALS: BP 127/48
[2019-03-06] MEDS ORDERED: ELIQUIS2.5 MG PO (07:41)
[2019-03-06] MEDS ORDERED: HYDROCODON-ACE1 EA10 PO (07:42)
[2019-03-06] MEDS ORDERED: MIRALAX17 GM PO (07:45)
--- NOTE | 2019-03-06 08:45 | MORECARE ---
CASE MANAGEMENT DISCHARGE SUMMARY PATIENT: ISHA ROPER UNIT: [id number] ADM DATE: 03/02/19 AGE: 88 : 31 SEX: M ROOM/BED: D.2209 AUTHOR: PERLITA,DOC PHYSICIAN: REFERRING PHYSICIAN: ZAK LUCAS MD DATE OF SERVICE: 03/06/19 Discharge Plan Patient Name: ISHA ROPER Facility: [facility]:[place] : 1930 Planned Disposition: Home Anticipated Discharge Date: Discharge Date: Expected LOS: Initial Reviewer: [email or web address] Initial Review Date: 03/02/2019 Generated: 03/06/19 9:45 am Comments DCP- Discharge Planning Updated by [email or web address]: Dulce Maria Rogers on 03/06/19 7:[address] PATIENT WILL BE DISCHARGING TO [facility] TO A SKILLED BED. THEY WILL TRANSPORT THE PATIENT AND PICK HIM UP AROUND 2:00. AT BEDSIDE AND IS AWARE. CM TO FOLLOW AND ASSIST WITH DC PLANNING NEEDED DCP- Discharge Planning Updated by [email or web address]: Dulce Maria Rogers on 03/05/19 3:[address] SPOKE WITH PATIENT ABOUT CONCERNS ABOUT GOING HOME. THEY WOULD LIKE TO GO TO [facility] WHEN ABLE TO DC FROM [facility]. [facility] FOR [place]. IMM SERVED AND EXPLAINED. SENT CLINICALS TO [place] FOR REVIEW AND SPOKE WITH RADHIKA. CM TO FOLLOW AND ASSIST WITH DC PLANNING DCP- Discharge Planning Updated by [email or web address]: Dulce Maria Rogers on 03/03/19 3:[address] Patient Name: ISHA ROPER Admission Status: Elective Accout number: [id number] Admission Date: 03-02-2019 : 1930 Admission Diagnosis: Attending: ZAK LUCAS Current LOS: 1 Anticipated DC Date: Planned Disposition: Home Primary Insurance: MEDICARE A & B Discharge Planning Comments: CM met with patient to complete initial dc planning assessment. CM educated patient on the CM role and verbal consent given by patient to complete assessment. Patient lives at home with his where he was independent with his. At discharge patient plans to return home and feels this is a safe discharge. Patient will either go to [facility] [place] or home health. Patient denied known discharge needs at this time. Patient has had their DME delivered to the house that was set up by Dr Lucas's office. Walker, CPM, BSC and cane CM will continue to follow and will assist as needed with dc plans/needs. Patient Sitter: Dulce Maria Rogers DCPIA - Discharge Planning Initial Assessment Updated by [id number]: Dulce Maria Rogers on 03/03/19 4:15 pm * Is the patient Alert and Oriented? Yes * How many steps to enter\exit or inside your home? * PCP ZACHARY * Pharmacy [facility] * Preadmission Environment Home with Family * ADLs Independent * Equipment Bedside Commode Cane Walker * Other Equipment CPM * List name and contact numbers for known caregivers / representatives who currently or will assist patient after discharge: BIANKA () [phone] * Verbal permission to speak to the caregivers and representatives has been obtained from the patient. N/A * Community resources currently utilized None * Additional services required to return to the preadmission environment? Yes * Can the patient safely return to the preadmission environment? Yes * Has this patient been hospitalized within the prior 30 days at any hospital? No Coverage Notice Reviewer: [id number] Clarita Rogers Notice Issued Date-Time: 03/05/2019 15:45 Notice Type: IM Discharge Notice Notice Delivered To: Patient Relationship to Patient: Coin Machine Service Repairer Name: Delivery Method: HAND - Hand Delivered Yeni Days: Prior Verbal Notification: Recipient Understood Notice: Yes Recipient Signature: Yes Med Rec Note Co-signed by Attending: Coverage Notice Comment: Reviewer: [id number] Clarita Rogers Notice Issued Date-Time: 03/05/2019 15:45 Notice Type: Patient Choice Letter Notice Delivered To: Family Member Relationship to Patient: Spouse Coin Machine Service Repairer Name: MRS ROPER Delivery Method: - Yeni Days: Prior Verbal Notification: Recipient Understood Notice: Recipient Signature: Med Rec Note Co-signed by Attending: Coverage Notice Comment: Last DP export: 03/05/19 3:20 p Patient Name: ISHA ROPER Page [phone] at 0845 All edits/amendments must be made on the electronic document DICTATION DATE: 03/06/1945 ENVIRONMENTAL EDUCATION SPECIALIST: STACI 03/06/19 0845 RPT#: [id number] DC DATE: STATUS: ADM IN [facility] [address] [place] [address] END OF REPORT
[2019-03-06 09:00] VITALS: BP 139/62
--- NOTE | 2019-03-06 09:00 | NUR ---
ALERT WITH CONFUSION NOTED WITH AT BEDSIDE. 2PERSON ASSIST TO BSC.S/L TO RT. HAND. STEPHON ALARM INTACT DUE TO FALL RISK. DRESSING INTACT TO LT. KNEE. WITH PEDAL PULSES NOTED. ENCOURAGED TO USE CALL LIGHT FOR ASSIST
[2019-03-06 13:23] VITALS: BP 125/53
--- NOTE | 2019-03-06 14:15 | NUR ---
DRESING CHANGED TO LT KNEE WITH BRIAN INTACT W/O ANY S/S OF INFRCTION.PREDAL PULSES NOTED. IV DISCONTINUED WITH DISCHAGR IS=NSTRUCTIONS VERBALIZED BY PT AND FAMILY WITH REPORT CALLED TO M[facility]ENO AT [facility]. DISCHARGED UNDER CARE OF OF REHAB STAFF. STABLE AT TIME OF DEPARTURE.
--- NOTE | 2019-03-07 12:11 | MORECARE ---
CASE MANAGEMENT DISCHARGE SUMMARY PATIENT: ISHA ROPER UNIT: [id number] ADM DATE: 03/02/19 AGE: 88 : 31 SEX: M ROOM/BED: D.2209 AUTHOR: PERLITA,DOC PHYSICIAN: REFERRING PHYSICIAN: ZAK LUCAS MD DATE OF SERVICE: 03/07/19 Discharge Plan Patient Name: ISHA ROPER Facility: [facility]:[place] : 1930 Planned Disposition: Home Anticipated Discharge Date: Discharge Date: 03/06/2019 Expected LOS: Initial Reviewer: [email or web address] Initial Review Date: 03/02/2019 Generated: 03/07/19 1:10 pm Comments DCP- Discharge Planning Updated by [email or web address]: Dulce Maria Rogers on 03/06/19 7:[address] PATIENT WILL BE DISCHARGING TO [facility] TO A SKILLED BED. THEY WILL TRANSPORT THE PATIENT AND PICK HIM UP AROUND 2:00. AT BEDSIDE AND IS AWARE. CM TO FOLLOW AND ASSIST WITH DC PLANNING NEEDED DCP- Discharge Planning Updated by [id number]: Dulce Maria Rogers on 03/05/19 3:[address] SPOKE WITH PATIENT ABOUT CONCERNS ABOUT GOING HOME. THEY WOULD LIKE TO GO TO [facility] WHEN ABLE TO DC FROM [facility]. [facility]. IMM SERVED AND EXPLAINED. SENT CLINICALS TO [place] FOR REVIEW AND SPOKE WITH RADHIKA. CM TO FOLLOW AND ASSIST WITH DC PLANNING DCP- Discharge Planning Updated by [email or web address]: Dulce Maria Rogers on 03/03/19 3:[address] Patient Name: ISHA ROPER Admission Status: Elective Accout number: [id number] Admission Date: 03-02-2019 : 1930 Admission Diagnosis: Attending: ZAK LUCAS Current LOS: 1 Anticipated DC Date: Planned Disposition: Home Primary Insurance: MEDICARE A & B Discharge Planning Comments: CM met with patient to complete initial dc planning assessment. CM educated patient on the CM role and verbal consent given by patient to complete assessment. Patient lives at home with his where he was independent with his. At discharge patient plans to return home and feels this is a safe discharge. Patient will either go to [facility] [place] or home health. Patient denied known discharge needs at this time. Patient has had their DME delivered to the house that was set up by Dr Lucas's office. Walker, CPM, BSC and cane CM will continue to follow and will assist as needed with dc plans/needs. Pediatric Critical Care Nurse: Dulce Maria Rogers DCPIA - Discharge Planning Initial Assessment Updated by [email or web address]: Dulce Maria Rogers on 03/03/19 4:15 pm * Is the patient Alert and Oriented? Yes * How many steps to enter\exit or inside your home? * PCP [facility] * Pharmacy [facility] * Preadmission Environment Home with Family * ADLs Independent * Equipment Bedside Commode Cane Walker * Other Equipment CPM * List name and contact numbers for known caregivers / representatives who currently or will assist patient after discharge: BIANKA () [phone] * Verbal permission to speak to the caregivers and representatives has been obtained from the patient. N/A * Community resources currently utilized None * Additional services required to return to the preadmission environment? Yes * Can the patient safely return to the preadmission environment? Yes * Has this patient been hospitalized within the prior 30 days at any hospital? No Coverage Notice Reviewer: [id number] Clarita Rogers Notice Issued Date-Time: 03/05/2019 15:45 Notice Type: IM Discharge Notice Notice Delivered To: Patient Relationship to Patient: Pin Feather Machine Operator Name: Delivery Method: HAND - Hand Delivered Yeni Days: Prior Verbal Notification: Recipient Understood Notice: Yes Recipient Signature: Yes Med Rec Note Co-signed by Attending: Coverage Notice Comment: Reviewer: [id number] - Dulce Maria Rogers Notice Issued Date-Time: 03/05/2019 15:45 Notice Type: Patient Choice Letter Notice Delivered To: Family Member Relationship to Patient: Spouse Pin Feather Machine Operator Name: MRS ROPER Delivery Method: - Yeni Days: Prior Verbal Notification: Recipient Understood Notice: Recipient Signature: Med Rec Note Co-signed by Attending: Coverage Notice Comment: Last DP export: 03/06/19 7:45 a Patient Name: ISHA ROPER Page [phone] at 1211 All edits/amendments must be made on the electronic document DICTATION DATE: 03/07/19 1210 BRAND INSPECTOR: STACI 03/07/19 1210 RPT#: [id number] DC DATE:03/06/19 STATUS: DIS IN [facility] [address] [place] [address] END OF REPORT
[2019-03-30 16:54] VITALS: BMI 25.6
== END 2019-03-06 14:15 | DRG 470 ==
LOC: D.SDCHOLD 03-02 08:05 → D.MS 03-02 08:05 → D.SDCHOLD 03-02 10:30 → D.MS 03-02 13:03 → D.SDCHOLD 03-02 14:00 → D.MS 03-06 14:15
PROVIDERS: ADMIT Orthopaedic Surgery; ATTEND Orthopaedic Surgery
PROC: 0SRD0JZ Replacement of Left Knee Joint with Synthetic Substitute, Open Approach (ICD-10-PCS; principal; 2019-03-02 10:30)
DX: M17.12 Unilateral primary osteoarthritis, left knee (principal); D62 Acute posthemorrhagic anemia; I10 Essential (primary) hypertension; I49.1 Atrial premature depolarization; I25.10 Atherosclerotic heart disease of native coronary artery without angina pectoris; G62.9 Polyneuropathy, unspecified

== ENCOUNTER 2019-03-29 14:04 | Emergency (ER) | payer MEDICARE, OTHER ==
[~2019-03-29] VITALS: Ht 188 cm; Wt 89.1 kg
[~2019-03-29 14:04] MED LIST changes: +AREDS PO; +ELIQUIS2.5 MG PO; +HYDROCODON-ACE1 EA10 PO; +MIRALAX17 GM PO; +[UNRECOGNIZED DRUG - OTHER] PO
[2019-03-29 14:37] VITALS: Ht 188 cm; Wt 89.1 kg
[2019-03-29 15:22] LABS: BASOPHILS 0 % (0-2); EOSINOPHILS 0 % (0-7); HEMOGLOBIN 11.6 g/dL (13.5-17.5); IMMATURE GRANULOCYTES 0.1 % (0-5); LYMPHOCYTES 5.9 % (15-50); MCH 31.7 pg (26.0-34.0); MCHC 34.1 g/dL (31.0-37.0); MCV 92.9 fL (80.0-100.0); MEAN PLATELET VOLUME 9.7 fL (7.4-10.4); MONOCYTES 6.8 % (2-11); NEUTROPHILS 87.2 % (40-80); RBC 3.66 10x6/uL (4.20-6.10); RDW 13.1 % (11.5-14.5); WBC 7.1 10x3/uL (4.8-10.8)
[2019-03-29 15:29] LABS: PLATELET COUNT 293 10x3/uL (130-400)
[2019-03-29 15:33] LABS: APTT 31.4 SECONDS (22.8-39.4); INR 1.07 (0.85-1.17); PROTIME 13.4 SECONDS (11.6-15.0)
[2019-03-29 15:54] LABS: ALBUMIN 3.4 g/dL (3.4-5.0); ALKALINE PHOSPHATASE 83 U/L (46-116); ALT (SGPT) 21 U/L (10-68); BILIRUBIN - TOTAL 0.38 mg/dL (0.2-1.3); CALC OSMOLALITY 279 mosm/kg (275-300); CALCIUM 9.2 mg/dL (8.5-10.1); CARBON DIOXIDE 31.7 mmol/L (21.0-32.0); CHLORIDE - SERUM 94 mmol/L (98-107); CKMB 1.7 U/L (0.0-3.6); CREATINE KINASE 183 UL (21-232); CREATININE - SERUM 1.5 mg/dL (0.6-1.3); GLUCOSE 123 mg/dL (74-106); PRO BNP 2522 pg/mL (0-450); PROTEIN - SERUM 7.6 g/dL (6.4-8.2); SODIUM 134 mmol/L (136-145); TROPONIN-I < 0.017 ng/mL (0.000-0.060); UREA NITROGEN 44 mg/dL (7-18); eGFR NON AFRICAN AMERICAN 47 mL/min (90-120)
[2019-03-29 16:06] LABS: POTASSIUM - SERUM 2.8 mmol/L (3.5-5.1)
[2019-03-29] MEDS ORDERED: LASIX20 MG PO (18:39)
[2019-03-29] MEDS ORDERED: K-TAB10 MEQ PO (18:39)
[2019-03-29 18:53] VITALS: BP 137/68
[2019-03-30] MEDS ORDERED: ZIAC 10-6.25 MG1 TAB PO (19:50)
[2019-03-30] MEDS ORDERED: MIRALAX17 GM PO (19:52)
== END 2019-03-29 18:51 | disposition home or self-care (01) ==
LOC: D.ER 14:04
PROVIDERS: Family Medicine
DX: J81.1 Chronic pulmonary edema (principal)

== ENCOUNTER 2019-03-30 18:49 | Inpatient (IN) | payer MEDICARE, OTHER ==
[~2019-03-30 18:49] MED LIST changes: +K-TAB10 MEQ PO; +LASIX20 MG PO
--- NOTE | 2019-03-30 19:47 | NUR ---
RECEIVED PT TO ROOM 2131 VIA WHEELCHAIR, PT ABLE TO AMBULATE FROM WHEELCHAIR TO BED, GATE A LITTEL UNSTEADY. PT A/O X4, YOMBA SHOSHONE, WEARING HEARING AIDS. NONPRODUCTIVE COUGH NOTED. ORIENTED PT AND PT'S SPOUSE TO ROOM AND CALL LIGHT. WILL ASSESS PT AND START PLAN OF CARE.
[2019-03-30] MEDS ORDERED: ZIAC 10-6.25 MG1 TAB PO (19:50)
[2019-03-30] MEDS ORDERED: MIRALAX17 GM PO (19:52)
[2019-03-30 20:00] VITALS: BP 128/81
[2019-03-30 21:42] LABS: BASOPHILS 0.1 % (0-2); EOSINOPHILS 0.8 % (0-7); HEMATOCRIT 32.5 % (42.0-54.0); HEMOGLOBIN 11.1 g/dL (13.5-17.5); IMMATURE GRANULOCYTES 0.4 % (0-5); LYMPHOCYTES 15.5 % (15-50); MCH 31.6 pg (26.0-34.0); MCHC 34.2 g/dL (31.0-37.0); MCV 92.6 fL (80.0-100.0); MEAN PLATELET VOLUME 9.4 fL (7.4-10.4); MONOCYTES 8.6 % (2-11); NEUTROPHILS 74.6 % (40-80); PLATELET COUNT 252 10x3/uL (130-400); RBC 3.51 10x6/uL (4.20-6.10); RDW 13.3 % (11.5-14.5); WBC 7.4 10x3/uL (4.8-10.8)
[2019-03-30 21:51] LABS: INR 1.16 (0.85-1.17); PROTIME 14.3 SECONDS (11.6-15.0)
[2019-03-30 21:52] LABS: D-DIMER-QUANTITATIVE 3.33 ug/mLFEU (0.20-0.54)
[2019-03-30 22:05] LABS: ALBUMIN 3.1 g/dL (3.4-5.0); ALKALINE PHOSPHATASE 76 U/L (46-116); ALT (SGPT) 20 U/L (10-68); BILIRUBIN - TOTAL 0.38 mg/dL (0.2-1.3); CALC OSMOLALITY 285 mosm/kg (275-300); CALCIUM 8.7 mg/dL (8.5-10.1); CARBON DIOXIDE 30.3 mmol/L (21.0-32.0); CHLORIDE - SERUM 94 mmol/L (98-107); CREATINE KINASE 185 UL (21-232); CREATININE - SERUM 1.5 mg/dL (0.6-1.3); GLUCOSE 166 mg/dL (74-106); PROTEIN - SERUM 6.9 g/dL (6.4-8.2); SODIUM 134 mmol/L (136-145); UREA NITROGEN 52 mg/dL (7-18); eGFR NON AFRICAN AMERICAN 47 mL/min (90-120)
[2019-03-30 22:06] LABS: TROPONIN-I < 0.017 ng/mL (0.000-0.060)
[2019-03-30 22:08] LABS: POTASSIUM - SERUM 2.6 mmol/L (3.5-5.1)
--- NOTE | 2019-03-30 22:42 | NUR ---
PT TO CT.
[2019-03-30 23:09] VITALS: BP 128/81; BMI 25.2
--- NOTE | 2019-03-31 00:22 | NUR ---
EKG DONE AND PLACED ON CHART.
[2019-03-31 04:00] VITALS: BP 116/86
[2019-03-31 06:03] LABS: APPEARANCE CLEAR (CLEAR); BILIRUBIN NEGATIVE (NEGATIVE); COLOR YELLOW (YELLOW); GLUCOSE NEGATIVE (NEGATIVE); KETONE NEGATIVE (NEGATIVE); NITRITE NEGATIVE (NEGATIVE); PROTEIN NEGATIVE (NEGATIVE); UROBILINOGEN NORMAL (NORMAL)
--- NOTE | 2019-03-31 06:19 | NUR ---
SYNTHROID GIVEN ORDERED, PT RESTING COMFORTABLY IN BED, DENIES ANY NEEDS AT THIS TIME, CALL LIGHT IN REACH.
--- NOTE | 2019-03-31 07:00 | NUR ---
RECEIVED REPORT. ASSUMED CARE OF PATIENT. CALL LIGHT WITHIN REACH. NO DISTRESS. IV FLUIDS INFUSING ORDERED. AWAITING LABS TO RESULT PATIENT IS EP.
[2019-03-31 08:15] VITALS: BP 135/78
--- NOTE | 2019-03-31 09:30 | NUR ---
IV DRESSING CHANGED IT WAS SATURATED AND WOULD NOT STICK TO PATIENTS SKIN. DRESSING CLEAN, DRY AND INTACT AT THIS TIME.
--- NOTE | 2019-03-31 09:50 | NUR ---
K+ INITIATED FOR K+3.3 AT THIS TIME. NO DISTRESS.
[2019-03-31 10:13] LABS: HEMATOCRIT 32.8 % (42.0-54.0); MCH 31.3 pg (26.0-34.0); MCHC 33.5 g/dL (31.0-37.0); MCV 93.4 fL (80.0-100.0); MEAN PLATELET VOLUME 9.9 fL (7.4-10.4); PLATELET COUNT 252 10x3/uL (130-400); RBC 3.51 10x6/uL (4.20-6.10); RDW 13.5 % (11.5-14.5); WBC 2.8 10x3/uL (4.8-10.8)
[2019-03-31 10:22] LABS: ANION GAP 13.9 mmol/L (8-16); CALCIUM 8.6 mg/dL (8.5-10.1); CARBON DIOXIDE 28.5 mmol/L (21.0-32.0); CREATININE - SERUM 1.6 mg/dL (0.6-1.3)
[2019-03-31 10:33] LABS: POTASSIUM - SERUM 3.4 mmol/L (3.5-5.1)
[2019-03-31 11:03] LABS: LYMPHOCYTES 7 % (15-50); MONOCYTES 3 % (2-11); NEUTROPHILS 87 % (40-80); PLATELET ESTIMATE NORMAL
[2019-03-31 11:48] VITALS: BP 138/60
--- NOTE | 2019-03-31 11:51 | NUR ---
RESTING IN BED. NO DISTRESS. 2ND K+ SUPPLEMENT ADMINISTERED AT THIS TIME. DENIES NEEDS. CALL LIGHT WITHIN REACH.
--- NOTE | 2019-03-31 12:39 | HP ---
PATIENT: ISHA ROPER MEDICAL RECORD: [id number] ACCOUNT: [id number] LOCATION:[address] : [birth year] ADMISSION DATE: 03/30/19 PCP: MANUEL SHARMA DO HISTORY AND PHYSICAL EXAMINATION HISTORY OF PRESENT ILLNESS: Mr. Roper is a nice 88-year-old white male who comes into the office today with increasing shortness of breath and cough, has been going on for 2 weeks. He was seen last week here in the office and was started on some doxy and prednisone. He ended up in the Emergency Room yesterday, not any better. A chest x-ray revealed no definite infiltrates. He did undergo orthopedic surgery for left knee replacement and was discharged from the hospital on March 06 and subsequently went to [facility]. He comes back in today with increasing wheezing and shortness of breath. He is afebrile. His blood pressure is 108/60. Heart rate is okay. Sat is okay, but he has got bilateral wheezes. He does have a history of smoking in the remote past. He is going to be admitted for probable COPD exacerbation with failure to treat as an outpatient and will need to rule out PE because of his recent orthopedic surgery. PAST MEDICAL HISTORY: Significant for known coronary artery disease and angina, for which he sees Dr. Parker. He has a diagnosis of peripheral vascular disease. He has had a cardiac pacemaker, osteoarthritis, BPH, chronic low back pain, hyperlipidemia, hypertension, iatrogenic hypothyroidism, and some probable COPD. PAST SURGICAL HISTORY: His previous surgeries include bypass surgery in 1991, laminectomy, thyroidectomy, stent, pacemaker placement in December of 2017, colonoscopy in 2010, and left total knee recently by Dr. William Rutherford. ALLERGIES OR INTOLERANCES: INCLUDE MORPHINE AND PENICILLIN. HOME MEDICATIONS: Furosemide 20 mg a day, KCl 10 mEq a day, recently on doxycycline and some prednisone, MiraLAX, famotidine 20 mg once a day, losartan/hydrochlorothiazide 100/25 one a day, levothyroxine 75 mcg a day, Ziac 10 daily, amiodarone 200 b.i.d., pravastatin 20 mg a day, p.r.n. nitroglycerin, baby aspirin a day, and some ICaps. FAMILY HISTORY: Significant for hypertension and coronary artery disease. SOCIAL HISTORY: The patient is . His is with him today. He has a history of remote tobacco use in the past. He quit in 1969. He does not drink. REVIEW OF SYSTEMS: Fatigue, shortness of breath, and wheezing. He has had a little bit of edema. No fever. Left knee is in pain, which is doing better. No change in bladder or bowel habits. PHYSICAL EXAMINATION: GENERAL: He is in mild distress due to wheezing. He is not in extremis. Hemodynamically, he is stable at this time. HEART: Regular but difficult to auscultate. LUNGS: Bilateral wheezes. ABDOMEN: Soft. Healing incision on left knee. The right lower extremity feels a little more puffy than the left. NEUROLOGIC: Without any gross focal deficits. HISTORY AND PHYSICAL [id number] ISHA ROPER IMPRESSION: Dyspnea, suspect COPD exacerbation and failure to treat as an outpatient. We cannot rule out PE or something cardiac. PLAN: We will admit and place on telemetry. Check an echo. Antibiotics. Get a pulmonary consult. IV corticosteroids, IV antibiotics, and pulmonary toilet. See orders for rest of plan. TRANSINT:[id number] Voice Confirmation ID: [id number] DOCUMENT ID: [id number] MANUEL SHARMA DO at 1239 CC: [id number] DICTATION DATE: 03/30/191750 TRACK INSPECTOR: 03/30/19 1853 ADM IN [facility] [address] [place] [address]
--- NOTE | 2019-03-31 15:00 | NUR ---
PATIENT WITH HIS AT BEDSIDE. NO DISTRESS. DENIES NEEDS. CALL LIGHT WITHIN REACH.
--- NOTE | 2019-03-31 15:03 | EC ---
PATIENT:ISHA ROPER DATE OF SERVICE: 03/30/19 SEX: M MEDICAL RECORD: [id number] DATE OF : [birth year] LOCATION:D.M2 D.213 AGE OF PATIENT: 88 ADMISSION DATE: 03/30/19 REFERRING PHYSICIAN: INTERPRETING PHYSICIAN: MALINDA ALBA MD ECHOCARDIOGRAM REPORT ECHO CHARGES 4 ECHO COMPLETE Date: 03/31/19 CLINICAL DIAGNOSIS: DYSPNEA ECHOCARDIOGRAPHIC MEASUREMENTS (adult normal given) AC root (d.<3.7cm) 3.1 cm LV Septum d (<1.2 cm> 0.7 cm Valve Excursion 2.0 cm LV Septum (systole) 1.5 cm Left Atria (s.<4.0cm> 5.2 cm LVPW d(<1.2cm) 1.4 cm RV (d.<2.3cm) 3.9 cm LVPW (sytole) 1.6 cm LV diastole(<5.6CM) 5.4 cm MV E-F(>70mm/sec) cm LV systole 4.3 cm LVOT Diameter 2.0 cm MV exc.(>10mm) cm Est.ejection fraction (50-75%) % DOPPLER: LVIT cm/sec A 122 cm/sec E 83 cm/sec LA cm/sec RVSP 31.8 mmHg LVOT 170 cm/sec AOP1/2T m/s Asc. Ao 194 cm/sec RVOT 90 cm/sec RA cm/sec PA 116 cm/sec AV Gradient Peak 15.1 mmHg AV Mean 9.6 mmHg AV Area 2.6 cm MV Gradient Peak 6.7 mmHg MV Mean 3.9 mmHg MV Area cm COMMENTS: Payroll And Benefits Assistant: Mar[facility] [employer] Potato Seed Cutter: 3 Dr. Parker TAPE# PACS Pericardial Effusion N DATE OF SERVICE: Adequate 2D, color flow, spectral Doppler, and M-Mode. Mild LVH. LV internal dimension is normal. Wall motion is normal. EF is greater than or equal to 55%. Aortic valve sclerosis. No evidence of stenosis by Doppler interrogation. Left atrium is dilated at 5.2 cm. Mitral valve shows no prolapse. Mild MR. Right-sided chambers grossly normal. Mild TR. TRANSINT:[id number] Voice Confirmation ID: [id number] DOCUMENT ID: [id number] ECHOCARDIOGRAM REPORT [id number] ISHA ROPER MALINDA ALBA MD at 1503 CC: [id number] DICTATION DATE: 03/31/19 1310 BUILDER BEAM: 03/31/19 1358 ADM IN [place] [id number] [place] [id number]
[2019-03-31 15:09] VITALS: BP 112/45
[2019-03-31 17:46] LABS: CHOL - HDL RATIO 3.3 ratio (2.3-4.9)
--- NOTE | 2019-03-31 19:00 | NUR ---
PATIENT RESTING IN BED. NO DISTRESS. ONCOMING NURSE INTRODUCED TO PATIENT AT BEDSIDE. CALL LIGHT WITHIN REACH. KLEENEX BOX PROVIDED.
--- NOTE | 2019-03-31 19:00 | NUR ---
PATIENT LAYING IN BED. NO COMPLAINTS AT THIS TIME. NO DISTRESS NOTED.
[2019-03-31 20:00] VITALS: BP 119/63
--- NOTE | 2019-03-31 21:15 | NUR ---
PATIENT COMPLAINS OF CHEST PAIN. PATIENT WAS GIVEN NITRO. AFTER 5 MINUTES CHEST PAIN WAS AT THE SAME PAIN LEVEL. 2ND NITRO GIVEN. NITRO DID NOT HELP CHEST PAIN. PATIENT THEN STATED HE DID NOT FEEL LIKE IT WAS HIS HEART. PATIENT STATES WHEN HE WAS IN THE ER A FEW DAYS AGO HE HAD THE SAME PAIN AND IT WAS CONTROLLED BY STEROIDS. PATIENT GIVEN TYLENOL, REPOSITIONED AND LIGHTS OFF. AFTER ABOUT 35 MINUTES FROM WHEN TYLENOL WAS GIVEN PATIENT WAS ASLEEP BUT EASILY AROUSED. WHEN WOKEN PATIENT DID NOT COMPLAIN OF PAIN AND STATED HIS CHEST FELT BETTER.
--- NOTE | 2019-04-01 02:26 | NUR ---
I have reviewed this patient and I concur with the Shift Assessment completed by the Licensed Practical Nurse today this shift.
--- NOTE | 2019-04-01 02:33 | NUR ---
PATIENT LAYING IN BED. EYES CLOSED, CHEST RISING AND FALLING. NO DISTRESS NOTED.
[2019-04-01 04:00] VITALS: BP 118/78
[2019-04-01 05:09] LABS: BASOPHILS 0 % (0-2); EOSINOPHILS 0 % (0-7); HEMATOCRIT 29.7 % (42.0-54.0); HEMOGLOBIN 9.9 g/dL (13.5-17.5); IMMATURE GRANULOCYTES 0.7 % (0-5); LYMPHOCYTES 5.5 % (15-50); MCHC 33.3 g/dL (31.0-37.0); MCV 93.1 fL (80.0-100.0); MEAN PLATELET VOLUME 9.8 fL (7.4-10.4); MONOCYTES 4.3 % (2-11); NEUTROPHILS 89.5 % (40-80); PLATELET COUNT 215 10x3/uL (130-400); RBC 3.19 10x6/uL (4.20-6.10); RDW 13.6 % (11.5-14.5)
[2019-04-01 05:21] LABS: WBC 4.2 10x3/uL (4.8-10.8)
[2019-04-01 05:49] LABS: ANION GAP 14.8 mmol/L (8-16); CALCIUM 8.4 mg/dL (8.5-10.1); CARBON DIOXIDE 25.2 mmol/L (21.0-32.0); CREATININE - SERUM 1.6 mg/dL (0.6-1.3); MAGNESIUM - SERUM 1.8 mg/dL (1.8-2.4); PHOSPHOROUS 2.9 mg/dL (2.5-4.9)
--- NOTE | 2019-04-01 07:37 | NUR ---
REPORT RECEIVED. WILL CONTINUE WITH POC. PT CURRENTLY LYING SEMI FOWLERS. CALL LIGHT W/I REACH. PT IS RESTING AT THE MOMENT. RR EVEN AND UNLABORED ON RA. D5NS INFUSING @75ML/HR VIA R.HAND PIV. NO S/S OF DISTRESS NOTED. PT DENIES ANY NEEDS. WILL CTM.
[2019-04-01 08:39] VITALS: BP 124/52
[2019-04-01 11:40] VITALS: BP 119/50
--- NOTE | 2019-04-01 13:33 | NUR ---
I have reviewed this patient and I concur with the Shift Assessment completed by the Licensed Practical Nurse today this shift.
[2019-04-01 14:35] VITALS: BMI 25.1
--- NOTE | 2019-04-01 17:09 | NUR ---
VASCULAR ACCESS PLACED 22GA TO THE LEFT FOREARM X1 ATTEMPT. PT TOLERATED WELL. PIV IS SALINE LOCKED. PT CURRENTLY LYING SEMI FOWLERS. CALL LIGHT W/I REACH. NO S/S OF DISTRESS NOTED. WILL CTM.
[2019-04-01 18:36] VITALS: BP 120/54
--- NOTE | 2019-04-01 19:30 | NUR ---
PT ALERT AND ORIENTED. DENIES PAIN AT THIS TIME. DIMINISHED LUNG SOUNDS BILATERAL LOWER LOBES. LEFT KNEE WITH HEALING INCISION. PT STATES "KNEE REPLACEMENT A MONTH AGO." STATES PAIN IS 3 AND TOLERABLE AT THIS TIME. USES CALL LIGHT WHEN IN NEED. CALL LIGHT IN REACH
[2019-04-01 20:00] VITALS: BP 147/58
[2019-04-02 04:00] VITALS: BP 150/62
--- NOTE | 2019-04-02 04:04 | NUR ---
I have reviewed this patient and I concur with the Shift Assessment completed by the Licensed Practical Nurse today this shift.
[2019-04-02 06:45] LABS: BASOPHILS 0 % (0-2); EOSINOPHILS 0 % (0-7); HEMATOCRIT 30.3 % (42.0-54.0); IMMATURE GRANULOCYTES 1.7 % (0-5); LYMPHOCYTES 4.9 % (15-50); MCH 31.3 pg (26.0-34.0); MEAN PLATELET VOLUME 10.1 fL (7.4-10.4); MONOCYTES 3.4 % (2-11); PLATELET COUNT 204 10x3/uL (130-400); RBC 3.19 10x6/uL (4.20-6.10); RDW 14.2 % (11.5-14.5)
[2019-04-02 06:54] LABS: WBC 5.3 10x3/uL (4.8-10.8)
[2019-04-02 07:03] LABS: ANION GAP 12.5 mmol/L (8-16); CALCIUM 8.9 mg/dL (8.5-10.1); CARBON DIOXIDE 26.9 mmol/L (21.0-32.0); CREATININE - SERUM 1.5 mg/dL (0.6-1.3); PHOSPHOROUS 2.3 mg/dL (2.5-4.9); POTASSIUM - SERUM 3.4 mmol/L (3.5-5.1)
[2019-04-02 08:10] VITALS: BP 131/55
[2019-04-02] MEDS ORDERED: LEVAQUIN750 MG PO (11:33)
[2019-04-02] MEDS ORDERED: IPRAT-ALBUT 0.5-3 ML UPD (11:33)
[2019-04-02] MEDS ORDERED: PROTONIX40 MG PO (11:34)
[2019-04-02] MEDS ORDERED: HCTZ25 MG PO (11:34)
[2019-04-02] MEDS ORDERED: BREO ELLIPTA 11 EACH INH (11:34)
[2019-04-02 11:37] VITALS: BP 126/60
[2019-04-02] MEDS ORDERED: STERAPRED DS 1010 MG PO (11:38)
--- NOTE | 2019-04-02 12:46 | NUR ---
TREATED POTASSIUM AND PHOS PER PROTOCOL, PT IS BEING D/C AND WILL NOT BE ABLE TO GET ALL DOSES ORDERED IN PROTOCOL. I SPOKE WITH LUIS MESSER APRN AND SHE SAID TO TREAT WITH ONE DOSE AND HE WILL FOLLOW UP OP WITH LABS.
--- NOTE | 2019-04-02 14:48 | NUR ---
D/C INSTRUCTIONS GIVEN TO PT AND SPOUSE, IV REMOVED FROM LEFT ARM. TAKEN TO CAR VIA WHEELCHAIR.
--- NOTE | 2019-04-02 17:06 | MORECARE ---
CASE MANAGEMENT DISCHARGE SUMMARY PATIENT: ISHA ROPER UNIT: [id number] ADM DATE: 03/30/19 AGE: 88 : 31 SEX: M ROOM/BED: D.2134 AUTHOR: PERLITADOC PHYSICIAN: REFERRING PHYSICIAN: MANUEL SHARMA DO DATE OF SERVICE: 04/02/19 Discharge Plan Patient Name: ISHA ROPER Facility: [facility]:[place] : 1930 Planned Disposition: Home Anticipated Discharge Date: 04/02/19 Discharge Date: 04/02/2019 Expected LOS: 3 Initial Reviewer: GENO Initial Review Date: 04/02/2019 Generated: 04/02/19 6:05 pm Comments DCP- Discharge Planning Updated by [id number]: Victor Hugo Christiansen on 04/02/19 4:[address] Patient Name: ISHA ROPER Admission Status: Elective Accout number: [id number] Admission Date: 03-30-2019 : 1930 Admission Diagnosis:SHORTNESS OF BREATH Attending: MANUEL SHARMA Current LOS: 3 Anticipated DC Date: 04-02-2019 Planned Disposition: Home Primary Insurance: MEDICARE A & B Discharge Planning Comments: CM RECEIVED ORDER FOR NEBULIZER. CM MET WITH PT AND SPOUSE IN ROOM TO DISCUSS DISCHARGE PLANNING AND NEEDS.ISHA ROPER provided verbal consent to discuss current and ongoing needs with/in the presence of: SPOUSE BIANKA. PT REPORTS LIVING AT HOME INDEPENDENTLY WITH HIS . PT HAS BEDSIDE COMMODE, CANE AND WALKER WITH NO MEDICAL EQUIPMENT PROVIDER PREFERENCE. PT HAS NO OUTSIDE SERVICES ASSISTING IN THE HOME. CM DISCUSSED AVAILABILITY OF HOME HEALTH, REHAB SERVICES AND MEDICAL EQUIPMENT. PT DENIES DISCHARGE NEEDS, OTHER THAN NEBULIZER, HAS NO PREFERENCE ON PROVIDER. CHOICE SIGNED FOR NO PREFERENCE. PT'S SPOUSE HERE AND WILL PICK PT UP FOR DISCHARGE HOME. IMPORTANT MESSAGE FROM MEDICARE PROVIDED AND EXPLAINED. CM CALLED [facility], , SPOKE TO NEPTALI AND PROVIDED REFERRAL INFORMATION. CM FAXED REFERRAL TO [facility], . NURIS ADVISED THEY WILL DELIVER NEBULIZER TO HOSPITAL TODAY FOR DISCHARGE HOME. DEBONING TEAM LEADER NURSE NOTIFIED. Writing Tutor: Victor Hugo Christiansen DCPIA - Discharge Planning Initial Assessment Updated by [id number]: Victor Hugo Christiansen on 04/02/19 5:00 pm * Is the patient Alert and Oriented? Yes * How many steps to enter\exit or inside your home? * PCP DR. SHARMA * [facility] [place] * Preadmission Environment Home with Family * ADLs Independent * Equipment Bedside Commode Cane Walker * Other Equipment NO MEDICAL EQUIPMENT PROVIDER PREFERENCE * List name and contact numbers for known caregivers / representatives who currently or will assist patient after discharge: BIANKA ROPER, SPOUSE, * Verbal permission to speak to the caregivers and representatives has been obtained from the patient. Yes * Community resources currently utilized None * Please name any agencies selected above. NONE * Additional services required to return to the preadmission environment? No * Can the patient safely return to the preadmission environment? Yes * Has this patient been hospitalized within the prior 30 days at any hospital? No External Providers External Provider: Demetris Keane Next Contact Date: 04/02/2019 Service Request Date: Service Type: Resolution: Reviewer: Comments: Coverage Notice Reviewer: [id number] Clarita Christiansen Notice Issued Date-Time: 04/02/2019 13:40 Notice Type: IM Discharge Notice Notice Delivered To: Family Member Relationship to Patient: Spouse Nursing Service Director Name: BIANKA ROPER Delivery Method: HAND - Hand Delivered Yeni Days: Prior Verbal Notification: Recipient Understood Notice: Yes Recipient Signature: Yes Med Rec Note Co-signed by Attending: Coverage Notice Comment: Reviewer: [id number] Clarita Christiansen Notice Issued Date-Time: 04/02/2019 13:40 Notice Type: Patient Choice Letter Notice Delivered To: Family Member Relationship to Patient: Spouse Nursing Service Director Name: BIANKA ROPER Delivery Method: HAND - Hand Delivered Yeni Days: Prior Verbal Notification: Recipient Understood Notice: Yes Recipient Signature: Yes Med Rec Note Co-signed by Attending: Coverage Notice Comment: NO MEDICAL EQUIPMENT PROVIDER PREFERENCE Patient Name: ISHA ROPER Page [phone] at 1706 All edits/amendments must be made on the electronic document DICTATION DATE: 04/02/191704 TORCH OPERATOR: STACI 04/02/198 RPT#: [id number] DC DATE:04/02/19 STATUS: DIS IN [facility] [address] [place] [address] END OF REPORT
== END 2019-04-02 14:48 | disposition home or self-care (01) | DRG 193 ==
LOC: D.M2 18:49 → D.SDCHOLD 18:49 → D.M2 19:25
PROVIDERS: Internal Medicine Interventional Cardiology; Internal Medicine Nephrology; ADMIT Family Medicine; ATTEND Family Medicine
DX: J18.9 Pneumonia, unspecified organism (principal); I50.33 Acute on chronic diastolic (congestive) heart failure; J44.1 Chronic obstructive pulmonary disease with (acute) exacerbation; J98.11 Atelectasis; N17.9 Acute kidney failure, unspecified; E87.1 Hypo-osmolality and hyponatremia; J44.0 Chronic obstructive pulmonary disease with (acute) lower respiratory infection; E78.5 Hyperlipidemia, unspecified; E03.9 Hypothyroidism, unspecified; N40.0 Benign prostatic hyperplasia without lower urinary tract symptoms; M19.90 Unspecified osteoarthritis, unspecified site; I25.10 Atherosclerotic heart disease of native coronary artery without angina pectoris; I48.0 Paroxysmal atrial fibrillation; D64.9 Anemia, unspecified; E87.6 Hypokalemia; R91.8 Other nonspecific abnormal finding of lung field; Z95.0 Presence of cardiac pacemaker; Z87.891 Personal history of nicotine dependence

== ENCOUNTER → 2019-11-04 19:47 | Outpatient (CLI) | payer MEDICARE, OTHER ==
[~2019-11-04 19:47] MED LIST changes: +BREO ELLIPTA 11 EACH INH; +HCTZ25 MG PO; +IPRAT-ALBUT 0.5-3 ML UPD; +LEVAQUIN750 MG PO; +PROTONIX40 MG PO; +STERAPRED DS 1010 MG PO
== END | disposition home or self-care (01) ==
LOC: D.LABREF 19:47
PROVIDERS: ATTEND Orthopaedic Surgery
DX: M17.11 Unilateral primary osteoarthritis, right knee (principal)

== ENCOUNTER → 2020-03-24 10:28 | Outpatient (CLI) | payer MEDICARE, OTHER ==
--- NOTE | 2020-03-25 08:51 | EC ---
PATIENT:ISHA ROPER DATE OF SERVICE: 03/24/20 SEX: M MEDICAL RECORD: [id number] DATE OF : [birth year] LOCATION:D.[facility] AGE OF PATIENT: 89 ADMISSION DATE: 03/24/20 REFERRING PHYSICIAN: INTERPRETING PHYSICIAN: MALINDA ALBA MD ECHOCARDIOGRAM REPORT ECHO CHARGES 4 ECHO COMPLETE Date: 03/24/20 CLINICAL DIAGNOSIS: CAD/TRICSUPID REGURG ECHOCARDIOGRAPHIC MEASUREMENTS (adult normal given) AC root (d.<3.7cm) 3.9 cm LV Septum d (<1.2 cm> 1.4 cm Valve Excursion 1.4 cm LV Septum (systole) 1.7 cm Left Atria (s.<4.0cm> 4.4 cm LVPW d(<1.2cm) 1.4 cm RV (d.<2.3cm) 4.5 cm LVPW (sytole) 1.7 cm LV diastole(<5.6CM) 5.8 cm MV E-F(>70mm/sec) cm LV systole 4.2 cm LVOT Diameter 1.8 cm MV exc.(>10mm) 1.2 cm Est.ejection fraction (50-75%) % DOPPLER: LVIT cm/sec A 106.0cm/sec E 44.0 cm/sec LA cm/sec RVSP 18 mmHg LVOT 99 cm/sec AOP1/2T m/s Asc. Ao 116 cm/sec RVOT 81 cm/sec RA cm/sec PA 105 cm/sec AV Gradient Peak 5.39 mmHg AV Mean 2.86 mmHg AV Area 2.1 cm MV Gradient Peak 5.14 mmHg MV Mean 1.64 mmHg MV Area cm COMMENTS: Montessori Paraprofessional: 2 ROBLES [employer] Esl Teacher: 3 Dr. Parker TAPE# PACS Pericardial Effusion N DATE OF SERVICE: Adequate 2D, color flow imaging, spectral Doppler, and M-Mode. LVH is present. LV internal dimension is normal. Wall motion is normal. EF is greater than or equal to 55%. Aortic valve is tricuspid. No significant stenosis. Trace apical thinning. Left atrium is mildly dilated at 4.4 cm. Mitral valve shows no prolapse. Trace MR. Right-sided chambers are grossly normal. Trace TR. ECHOCARDIOGRAM REPORT [id number] ISHA ROPER TRANSINT:[id number] Voice Confirmation ID: [id number] DOCUMENT ID: [id number] MALINDA ALBA MD at 0851 CC: [id number] DICTATION DATE: 03/24/20 1517 RESOURCE SPECIALIST: 03/24/20 1615 DEP CLI 03/24/20 [place] [id number] [place] [id number]
== END | disposition home or self-care (01) ==
LOC: D.HCCECHO 01-20 11:00
PROVIDERS: ATTEND Internal Medicine Interventional Cardiology
DX: I25.10 Atherosclerotic heart disease of native coronary artery without angina pectoris (principal)

== ENCOUNTER 2021-01-30 12:58 | Inpatient (IN) | payer MEDICARE, OTHER ==
[~2021-01-30] VITALS: Ht 188 cm; Wt 89.1 kg
--- NOTE | ~2021-01-30 | HEMODYNAMI ---
PATIENT:ISHA ROPER MEDICAL RECORD: [id number] : 32 LOCATION:[facility] D.2119 ADMISSION DATE: 01/30/21 Generatedon:111:40 Patient name: ISHA ROPER Patient #: [id number] SSN: [id number] : 1930 Date of study: 01/31/2021 Page: Of Hemodynamic Procedure Report Patient Data Patient Demographics Procedure consent was obtained First Name: ISHA Gender: Male Last Name: JUDSON : 1930 Middle Initial: F Age: 89 year(s) Patient #: [id number] Race: SSN: [id number] Additional ID: [id number] Contact details [address]: [address] [place] [address] State: [place] City: [place] Zip code: [address] Past Medical History Allergies Allergen Reaction Date Comments Reported Morphine 10/23/2017 Penicillins 10/23/2017 Morphine 09/02/2018 Natural rubber 09/02/2018 and latex Penicillins 09/02/2018 Other allergy 01/31/2021 pcn, morphine, adhesive tape Admission Admission Data Admission Date: 01/30/2021 Admission Time: 15:22 Arrival Date: 01/31/2021 Arrival Time: 0:00 Admit Source: Other Insurance Payor: Medicare Room #: D.2119 [facility] #: [id number] Height (in.): 74 BSA: 2.16 (m2) Height (cm.): 187.96 BMI: 25.22 (kg/m2) Weight (lbs.): 196.41 Weight (kg.): 89.09 Lab Results Lab Result Date: 01/31/2021 Lab Result Time: 0:00 Biochemistry Name Units Result Min Max BUN mg/dl 16 --(---*)-- 7 18 CK-MB ng/ml 24.2 --(----)-* 0 3.6 Creatinine mg/dl 1.2 --(---*)-- 0.6 1.3 eGFR ml/min 61.92069 *-(----)-- 90 120 NONAFRICAN Troponin l ng/ml 4.863 --(----)-* 0 0.06 CBC Name Units Result Min Max Hematocrit % 39.9 -*(----)-- 42 54 Hemoglobin g/dl 13 -*(----)-- 13.5 17.5 Procedure Procedure Types Cath Procedure Diagnostic Procedure [facility] w/Coronaries Aortic Root Angiography Sedation Charges Moderate Sedation 40-54 minutes PCI Procedure Coronary Stent Coronary Stent Initial Hemochron ACT Test Procedure Description Procedure Date Procedure Date: 01/31/2021 Procedure Start Time: 10:50 Procedure End Time: 11:38 Procedure Staff Name Function Werner Jin MD Performing Physician Jihan Rutherford RT Monitor Elliot Charles RN Nurse Loree Xiao RT Scrub Procedure Data Cath Procedure Fluoroscopy Diagnostic fluoroscopy Total fluoroscopy Time: 11 time: 11 min min Diagnostic fluoroscopy Total fluoroscopy dose: dose: 1744 mGy 1744 mGy Contrast Material Contrast Material Type Amount (ml) Isovue 370 163 Entry Location Entry Primary Successful Side Size Upsize Upsize Entry Closure Succes sful Closure Location (Fr) 1 (Fr) 2 (Fr) Remarks Device Remarks Femoral Right 5 Fr 6 Fr 6 Fr Exoseal artery Short Long Estimated blood loss: 10 ml Diagnostic catheters Device Type Used For End Catheter Placement MULTIPACK JL 4.0 5Fr Procedure catheter DIAGNOSTIC AR MOD 5Fr Procedure Catheter ([id number]) DIAGNOSTIC IM 5Fr Procedure catheter ([id number]) MULTIPACK Pigtail 5 Fr Procedure catheter Procedure Complications No complications Procedure Medications Medication Administration Route Dosage 0.9% NaCl I.V. 100 ml/hr Oxygen etCO2 Nasal cannula 2 l/min Heparin Flush Bag added to field 2 bags (1000units/500ml NS) Lidocaine 2% added to field 20 Versed I.V. 0.5 mg Heparin Bolus I.V. 8000 units Versed I.V. 0.5 mg Nitroglycerin IC/IA I.C. 100 mcg Fentanyl I.V. 25 mcg Plavix P.O. 600 mg Hemodynamics Rest BSA: 2.16 (m2) HGB: 13 (g/dl) O2 Consumption: Estimated: 237.09 (ml/min) O2 Cons umption indexed: Estimated:109.76 (ml/min/m) Heart Rate: 61 (bpm) Pressure Samples Time Site Value (mmHg) Purpose Heart Use Rate(bpm) 11:28 LV 136/-2,15 Snapshot 60 11:29 AO 117/54(79) Pullback 61 11:29 LV 123/8,17 Pullback 61 Gradients Valve Time Site 1 Site 2 Mean SEP/DFP Peak To Heart Use (mmHg) (sec/min) Peak Rate (mmHg) (bpm) Aortic 11:29 LV AO 6 18 6 61 123/8,17 117/54(79) Calculations Valve P-P Mean Valve Index Valve Source Name Gradient Area Flow (cm2) Aortic 6 6 6 6 Snapshots Pre Cath Intra NCS Post Cath Vital Signs Time Heart Resp SPO2 etCO2 NIBP (mmHg) Rhythm Pain Sedation Rate (ipm) (%) (mmHg) Status Level (bpm) 10:35:28 60 21 97 0 145/73(117) Paced 0 (11) 10(A) , No pain 10:39:42 60 26 97 0 142/77(105) Paced 0 (11) 10(A) , No pain 10:43:58 61 24 98 12 138/74(114) Paced 0 (11) 10(A) , No pain 10:48:12 61 21 92 17.2 146/74(116) Paced 0 (11) 10(A) , No pain 10:52:26 60 20 96 10.4 144/79(108) Paced 0 (11) 10(A) , No pain 10:56:44 60 20 95 4.5 138/67(109) Paced 0 (11) 10(A) , No pain 11:01:00 60 19 96 1.4 144/69(118) Paced 0 (11) 10(A) , No pain 11:05:16 60 20 94 5.9 140/71(112) Paced 0 (11) 10(A) , No pain 11:09:30 60 20 95 8.2 136/76(117) Paced 0 (11) 10(A) , No pain 11:13:42 63 22 95 32.9 146/73(119) Paced 0 (11) 10(A) , No pain 11:18:00 61 20 94 14.2 133/71(109) Paced 0 (11) 10(A) , No pain 11:22:12 64 21 95 26.9 136/72(113) Paced 0 (11) 10(A) , No pain 11:26:26 60 34 93 1.4 115/67(95) Paced 0 (11) 10(A) , No pain 11:30:32 60 33 94 1.4 125/69(100) Paced 0 (11) 10(A) , No pain 11:34:41 60 30 93 11.9 138/70(108) Paced 0 (11) 10(A) , No pain 11:38:57 61 21 94 17.9 131/67(105) Paced 0 (11) 10(A) , No pain Medications Time Medication Route Dose Verified Delivered Reason Notes Effectiveness by by 10:34:31 0.9% NaCl I.V. 100 Elliot Elliot Per physician ml/hr Araceli Charles RN RN 10:34:39 Oxygen etCO2 2 Elliot Elliot for low 02 sats Nasal l/min Araceli Charles cannula RN RN 10:34:49 Heparin Flush added 2 Elliot Elliot used for Bag to bags Araceli Charles procedure (1000units/500ml field RN RN NS) 10:34:58 Lidocaine 2% added 20ml Elliot Elliot for local to vial Araceli Charles anesthetic field RN RN 10:41:25 Versed I.V. 0.5 Elliot Elliot for sedation mg Araceli Charles RN RN 11:12:30 Heparin Bolus I.V. 8,000 Elliot Elliot for units Araceli Charles anticoagulation RN RN 11:15:33 Versed I.V. 0.5 Elliot Elliot for sedation mg Araceli Charles RN RN 11:22:59 Nitroglycerin I.C. 100 Elliot Werner for IC/IA mcg Araceli Jin MD vasodilation RN 11:23:10 Fentanyl I.V. 25 Elliot Elliot for sedation mcg Araceli Charles RN RN 11:37:54 Plavix P.O. 600 Elliot Elliot for mg Araceli Charles antiplatelet RN RN therapy Procedure Log Time Note 10:04:41 Informed consent obtained and on chart 10:04:59 Diagnostic Cath Status : Urgent 10:05:53 Lab Result : BUN 16 mg/dl 10:05:53 Lab Result : Hemoglobin 13 g/dl 10:05:53 Lab Result : eGFR NONAFRICAN 61.01044 ml/min 10:05:53 Lab Result : Troponin l 4.863 ng/ml 10:05:53 Lab Result : Creatinine 1.2 mg/dl 10::53 Lab Result : CK-MB 24.2 ng/ml 10:05:53 Lab Result : Hematocrit 39.9 % 10:05:56 Arrival Date: 01/31/2021 12:00:00 AM 10:05:56 Admit Source: Other 10:06:03 Insurance Payor : Medicare 10:06:24 Patient Height : 74 inches 10:06:30 Patient Weight : 196.41 lbs 10:08:36 ACC Patient presents with Unstable Angina CCS Anginal Class 2--Slight limitation of ordinary activity. 10:08:39 Procedure Status Urgent Heart Cath (IP). 10:08:41 Time tracking: Regular hours (M-F 7:00 - 5:00) 10:08:45 Plan of Care:Hemodynamics will remain stable., Cardiac rhythm will remain stable., Comfort level will be maintained., Respiratory function will remain adequate., Patient/ family verbilizes understanding of procedure., Procedure tolerated without complication., Recovers from procedure without complications.. 10:08:54 H&P Date Dictated: 01/30/2021 Within 30 days and on chart.. 10:08:54 Pre-procedure instructions explained to patient. 10:08:55 Pre-op teaching completed and patient verbalized understanding. 10:08:56 Family unavailable. 10:08:57 Patient NPO since Midnight. 10:09:22 Patient allergic to Other allergypcn, morphine, adhesive tape 10:09:29 Lab results completed and on chart. 10:09:33 Stress Test: no; N/A ? 10:09:35 Alarms reviewed by R. N. 10:09:35 Sharps counted by scrub and verified by R.N. 10:11:25 Risk of Mortality: 3.8 10:11:28 Risk of blood transfusion: 5.3 10:11:31 Risk of CHUY: 14.2 10:11:38 Elliot Charles RN sent for patient. Start room use. 10:22:53 Patient received from PCU to CCL 2 Alert and oriented. Tansferred to table in Supine position. 10:34:14 Vital chart was started 10:34:31 0.9% NaCl 100 ml/hr I.V. was administered by Elliot Charles RN; Per physician; Verbal order read back and verified. 10:34:39 Oxygen 2 l/min etCO2 Nasal cannula was administered by Elliot Charles RN; for low 02 sats; Verbal order read back and verified. 10:34:43 Warm blankets applied, and leslie hugger turned on for patient comfort. 10:34:44 Correct patient and procedure confirmed by team. 10:34:44 ECG and BP/O2 sat monitors applied to patient. 10:34:45 Baseline sample Acquired. 10:34:45 Full Disclosure recording started 10:34:49 Heparin Flush Bag (1000units/500ml NS) 2 bags added to field was administered by Elliot Charles RN; used for procedure; Verbal order read back and verified. 10:34:49 Rhythm: sinus rhythm 10:34:56 Is the patient allergic to Iodine/contrast media? No. 10:34:58 Lidocaine 2% 20ml vial added to field was administered by Elloit Charles RN; for local anesthetic; Verbal order read back and verified. 10:34:58 Was the patient premedicated? Yes 10:35:00 Is patient on blood thinner?Unknown 10:35:02 Patient diabetic? No. 10:35:04 If diabetic: On Metformin? No 10:35:12 ----Pre-sedation anethsthesia assessment.---- 10:35:16 Previous problem with sedation/anesthesia? No ? 10:35:17 Snore? Yes 10:35:20 Sleep apnea? Unknown 10:35:21 Deviated septum? No 10:35:22 Opens mouth fully? Yes 10:35:23 Sticks out tongue? Yes 10:35:29 Airway obstruction? Yes COPD 10:35:32 Dentures? No ? 10:35:35 Pre procedure: right dorsailis pedis pulse 1+ Palpable, but thready & weak; easily obliterated 10:35:39 Patient pain scale 0/10 ?. 10:36:19 IV patent on arrival in Right upper arm with 0.9% NaCl at O. 10:36:25 Right groin area was prepped with chlora-prep and draped in sterile fashion 10:36:29 Use device set Femoral Dx 10:36:30 ACIST Syringe (39456) opened to sterile field. 10:36:31 Bag Decanter (2001S) opened to sterile field. 10:36:32 Medline Cath Pack ([id number]) opened to sterile field. 10:36:32 ACIST Hand Control (35658) opened to sterile field. 10:36:33 ACIST Manifold (28378) opened to sterile field. 10:36:34 DIAGNOSTIC Multipack 5Fr catheter set ([id number]) opened to sterile field. 10:36:35 Tegaderm 4 x 4 (1626W) opened to sterile field. 10:36:36 SHEATH 5FR [place] (PFB407) opened to sterile field. 10:36:36 EMERALD Guide Wire (690-927) opened to sterile field. 10:40:49 Zero performed for pressure channel P1 10:41:05 --------ALL STOP TIME OUT------ 10:41:07 Final Timeout: patient, procedure, and site verified with staff and physician. All members of the team are in agreement. 10:41:09 Right groin site verified by team. 10:41:11 Fire Safety Assessment: A--An alcohol-based skin anteseptic being used preoperatively., C--Open oxygen or nitrous oxide is being used., D--An ESU, laser, or fiber-optic light is being used. 10:41:13 Physical assessment completed. ASA score P 2 - A patient with mild systemic disease as per Werner Jin MD. 10:41:17 Sedation plan: IV Moderate Sedation Medication:Versed, Fentanyl 10:41:19 2) 60-89 Mildly reduced kidney function, and other findings (as for stage 1) point to kidney disease. 10:41:21 Maximum allowable contrast dose (3.7 X eGFR X 0.75)169 ml. 10:41:25 Versed 0.5 mg I.V. was administered by Elliot Charles RN; for sedation; Verbal order read back and verified. 10:49:42 Zero performed for pressure channel P1 10:49:46 Procedure started. 10:50:16 Local anesthetic to right femoral artery with Lidocaine 2% by Werner Jin MD.INITIAL ACCESS ONLY 10:51:47 A 5 Fr sheath was inserted into the Right Femoral artery 10:53:07 Zero performed for pressure channel P1 10:53:18 A MULTIPACK JL 4.0 5Fr catheter was advanced over the wire and used for Procedure. 10:55:26 LCA angiography performed. 10:55:28 Injector settings: Ml/sec: 3, Volume: 6, 10:56:24 Catheter exchanged over wire. 10:57:44 A DIAGNOSTIC AR MOD 5Fr Catheter ([id number]) was advanced over the wire and used for Procedure. 10:57:51 RCA angiography performed. 10:57:53 Injector settings: Ml/sec: 3, Volume: 6, 10:58:40 Catheter exchanged over wire. 10:59:07 A DIAGNOSTIC IM 5Fr catheter ([id number]) was advanced over the wire and used for Procedure. 10:59:54 GIBSON to LAD angiography performed. 10:59:58 Injector settings: Ml/sec: 3, Volume: 6, 11:01:36 Catheter exchanged over wire. 11:02:03 Proceeding to intervention. 11:02:07 Use device set JIN PCI 11:02:10 SHEATH 6FR [place] (RGD449) opened to sterile field. 11:02:13 INFLATOR Merit BasixCompak (YW5630) opened to sterile field. 11:02:14 TUBING High Pressure Extension Tubing (Jin) ([id number]) opened to sterile field. 11:02:30 Sheath upsized to a 6 Fr Short. 11:03:20 GUIDE 6FR EBU 3.5 catheter ([id number]) opened to sterile field. 11:04:38 6 Fr EBU 3.5 guide catheter was inserted over the wire 11:07:17 UNABLE TO ENGAGE CHANGING GUIDES AND CHANGING TO 6FR LONG SHEATH. 11:07:53 Sheath upsized to a 6 Fr Long. 11:09:05 6 Fr EBU 3.5 guide catheter was inserted over the wire 11:10:47 BMW 300cm Spalding 2 J wire ([id number]) opened to sterile field. 11:12:17 ACC Pre-intervention NOHEMI Flow is 3. 11:12:30 Heparin Bolus 8,000 units I.V. was administered by Elliot Charles RN; for anticoagulation; Verbal order read back and verified. 11:12:51 Pre PCI Site: [place] pCirc has 95% stenosis. 11:14:32 BMW 300 wire advanced. 11:14:59 Wire advanced across lesion. 11:15:33 Versed 0.5 mg I.V. was administered by Elliot Charles RN; for sedation; Verbal order read back and verified. 11:16:33 Inflate balloon Inflation number: 1 A EUPHORA 2.5 x 15 Balloon ([id number]) was prepped and advanced across the Prox CX 95, then inflated to 10 GLENYS for 0:13 (min:sec) . 11:17:20 Balloon removed over the wire. 11:19:29 Place stent Inflation Number: 2 A BERNARD RX 3.0 x 15 stent ([id number]) was prepped and advanced across the Prox CX . The stent was deployed at 11 GLENYS for 0:14 (min:sec) . 11:20:16 Stent catheter was removed intact over wire. 11:22:59 Nitroglycerin IC/IA 100 mcg I.C. was administered by Werner Jin MD; for vasodilation; Verbal order read back and verified. 11:23:10 Fentanyl 25 mcg I.V. was administered by Elliot Charles RN; for sedation; Verbal order read back and verified. 11:26:19 Wire removed. 11:26:20 Guide catheter removed. 11:27:42 A MULTIPACK Pigtail 5 Fr catheter was advanced over the wire and used for Procedure. 11:28:03 LV gram done using SAHNI 11:28:07 Injector settings: Ml/sec: 10, Volume: 20, 11:28:44 LV hemodynamics recorded. 11:28:57 EF : 55 % 11:30:16 Aortic Root visualized 11:31:01 Injector settings: Ml/sec: 10, Volume: 20, 11:31:38 EXCHANGING LONGSHEATH FOR 6FR SHORT SHEATH. 11:31:50 SHEATH 6FR Destination (RSR01) opened to sterile field. 11:32:00 EXOSEAL 6Fr (EX600) opened to sterile field. 11:33:07 Sheath removed intact; hemostasis achieved with Exoseal to the Right Femoral artery. 11:33:12 Fluoroscopy time 11.00 minutes. 11:33:16 Flurop Dose total: 1744 11:33:16 Fluoroscopy dose: 1744 mGy 11:33:20 Dose Area Product 336639 mGy/cm. 11:33:29 Contrast amount:Isovue 370 163ml. 11:33:31 Maximum allowable dose exceeded? No. 11:33:32 Sharps counted by scrub and verified by R.N. 11:33:33 Procedure ended.(Physican Out) 11:33:43 ACT drawn and resulted at >400 high out of range seconds. (normal therapeutic range 180-240 seconds). 11:33:44 Post-op/insertion site Right Femoral artery dressed using a 4 x 4 and Tegaderm. 11:33:48 Post right femoral artery:stable, soft, clean and dry 11:33:50 Post Procedure Pulses reassessed and unchanged 11:33:53 Post procedure: right dorsailis pedis pulse 1+ Palpable, but thready & weak; easily obliterated. 11:34:21 Post-procedure physical assessment completed. ASA score P 2 - A patient with mild systemic disease as per Werner Jin MD. 11:34:23 Post procedure rhythm: unchanged. 11:34:27 Estimated blood loss: 10 ml 11:34:28 Post procedure instruction explained to patient.Patient verbalizes understanding. 11:34:28 Patient needs reinforcement of post procedure teaching. 11:35:41 Procedure type changed to Cath procedure, Diagnostic procedure, LHC, C w/Coronaries, Aortic Root Angiography, Sedation Charges, Moderate Sedation 40-54 minutes, PCI procedure, Coronary Stent, Coronary Stent Initial, Hemochron ACT Test 11:37:54 Plavix 600 mg P.O. was administered by Elliot Charles RN; for antiplatelet therapy; Verbal order read back and verified. 11:38:16 Procedure and supply charges have been captured, reviewed, submitted and are correct. 11:38:19 Procedure Complication : No complications 11:38:23 [facility] Findings: MVD- PCI performed (see procedure note) 11:38:24 Operative report dictated upon procedure completion. 11:38:24 See physician's report for complete and final results. 11:38:26 Report given to [facility]. 11:38:29 Patient transfered to [facility] with Bed. 11:38:31 Procedure ended. 11:38:31 Full Disclosure recording stopped 11:38:40 ACC-PCI Only Patient was given prescriptions, or instructed by Werner Jin MD to start/continue the following medications upon discharge: Plavix 11:38:42 End room use (Document Last) 11:39:00 End room use (Document Last) 11:40:21 Vital chart was stopped Intervention Summary Intervention Notes Time ActionType Lesion and Equipment Used Action# Pressure Duration Attributes 11:16:33 Inflate Prox CX EUPHORA 2.5 x 1 10 00:13 balloon 15 Balloon ([id number]) 11:19:29 Place stent Prox CX BERNARD RX 3.0 x 2 11 00:14 15 stent ([id number]) Device Usage Item Name Manufacture Quantity Catalog [facility] Lot# / Number Charge Number Stock Stock Serial# Code ACIST Syringe Acist 1 96859 361245 299937 243661 20 (28401) Medical Systems Inc Bag Decanter Microtek 1 512967 26903 355038 5 () Medical Inc. Medline Cath Medline 1 [id number] 359047 77747 776184 5 Pack ([id number]) ACIST Hand Acist 1 73372 221788 762613 017592 5 Control Medical (04847) Systems Inc ACIST Manifold Acist 1 80879 733826 497416 300768 5 (34640) Medical Systems Inc DIAGNOSTIC Cardinal 1 AL8801 822609 94391 831179 30 Multipack 5Fr Health catheter set (ZU8843) Tegaderm 4 x 4 3M 1 1626W 891959 670700 842161 5 (1626W) SHEATH 5FR Terumo 1 DTX546 102633 553739 135263 5 [place] (UGJ294) EMERALD Guide Cardinal 1 502-455 660144 407855 010079 5 Wire (502-455) Health MULTIPACK JL Cardinal 1 977063 5 4.0 5Fr Health catheter DIAGNOSTIC AR Cardinal 1 190729A 694063 388287 645368 15 MOD 5Fr Health Catheter (973069G) DIAGNOSTIC IM Cardinal 1 094634V 984549 533695 627493 5 5Fr catheter Health (041464I) SHEATH 6FR Terumo 1 ZBB920 023926 904336 354855 40 [place] (IAA562) INFLATOR Merit Merit 1 ZD1315 114701 292522 941519 15 BasixBuildingOps Medical (GH0745) TUBING High Merit 1 OP2317H 852139 82846 936608 10 Pressure Medical Extension Tubing (Jin) (WJ1627I) GUIDE 6FR EBU Medtronic 1 [id number] 425682 79089 880230 3 3.5 catheter (DE4MFG55) BMW 300cm Ricks 1 [id number] 342839 250109 062678 5 Spalding 2 J Vascular wire (2976813E) EUPHORA 2.5 x Medtronic 1 [id number] 419353 776368 258752 5 [id number] 15 Balloon ([id number]) BERNARD RX 3.0 x Medtronic 1 [id number] 715664 7442890 802757 5 [id number] 15 stent ([id number]) MULTIPACK Cardinal 1 012298 5 Pigtail 5 Fr Health catheter EXOSEAL 6Fr Cardinal 1 EX600 004699 377677 872735 10 (EX600) Health SHEATH 6FR Terumo 1 RSR01 532984 58891 872053 5 Destination (RSR01) Signature Audit [place] Stage Time Signature Unsigned Intra-Procedure 01/31/2021 Jihan Rutherford 11:39:00 AM RT(R) Intra-Procedure 01/31/2021 Elliot 11:39:44 AM Araceli AYALA Intra-Procedure 01/31/2021 Werner Jin MD 11:40:19 AM Signatures Performing Physician : Signature : Werner Jin MD Date : Time : Monitor : Jihan Rutherford RT Signature : Date : Time : Nurse : Elliot Charles RN Signature : Date : Time : [place] [address] [place] [address]
[2021-01-30 13:54] LABS: BASOPHILS 0.2 % (0-2); EOSINOPHILS 0.3 % (0-7); HEMOGLOBIN 13.7 g/dL (13.5-17.5); LYMPHOCYTE ABS# 0.66 10x3/uL (1.32-3.57); LYMPHOCYTES 10.8 % (15-50); MCH 32.2 pg (26.0-34.0); MCHC 32.6 g/dL (31.0-37.0); MCV 98.6 fL (80.0-100.0); NEUTROPHILS 81.7 % (40-80); PLATELET COUNT 186 10x3/uL (130-400); RBC 4.26 10x6/uL (4.20-6.10); WBC 6.1 10x3/uL (4.8-10.8)
[2021-01-30 14:05] LABS: APTT 35.2 SECONDS (22.8-39.4); INR 1.11 (0.85-1.17); PROTIME 13.2 SECONDS (11.6-15.0)
[2021-01-30 14:06] LABS: CALC OSMOLALITY 288 mosm/kg (275-300); CALCIUM 9.1 mg/dL (8.5-10.1); CARBON DIOXIDE 34.1 mmol/L (21.0-32.0); CHLORIDE - SERUM 103 mmol/L (98-107); CREATININE - SERUM 0.9 mg/dL (0.6-1.3); POTASSIUM - SERUM 3.3 mmol/L (3.5-5.1); SODIUM 144 mmol/L (136-145); UREA NITROGEN 18 mg/dL (7-18); eGFR NON AFRICAN AMERICAN 84 mL/min (90-120)
[2021-01-30 14:09] LABS: GLUCOSE 102 mg/dL (74-106)
[2021-01-30 14:27] LABS: ALBUMIN 3.3 g/dL (3.4-5.0); ALKALINE PHOSPHATASE 64 U/L (30-120); ALT (SGPT) 17 U/L (10-68); BILIRUBIN - TOTAL 0.53 mg/dL (0.2-1.3); CKMB 16.2 U/L (0.0-3.6); CREATINE KINASE 172 UL (21-232); MAGNESIUM - SERUM 2.2 mg/dL (1.8-2.4); PROTEIN - SERUM 6.8 g/dL (6.4-8.2)
[2021-01-30 14:42] LABS: TROPONIN-I 2.399 ng/mL (0.000-0.060)
[2021-01-30 16:27] LABS: CKMB 16.4 U/L (0.0-3.6); CREATINE KINASE 168 UL (21-232)
[2021-01-30 16:31] LABS: TROPONIN-I 2.783 ng/mL (0.000-0.060)
--- NOTE | 2021-01-30 18:15 | NUR ---
PT ARRIVED VIA WHEELCHAIR AT THIS TIME. AMBLATED WITHOUT ASSISTANCE TO BED, RR EVEN NON LABORED ON ROOM AIR. PT AAOX3, PLEASANT AND ANSWERS QUESTIONS APPROP. PT DENIES ANY PAIN AT THIS TIME. ORIENTED TO ROOM, DINNER TRAY GIVEN, GOWN GIVE, NO FURTHER NEEDS VOICED AT THIS TIEM. CLWR.
[2021-01-30 18:19] VITALS: BP 184/95; Ht 188 cm; Wt 89.1 kg
--- NOTE | 2021-01-30 19:47 | NUR ---
RECIEVED LAYING IN BED TALKING WITH FAMILY. ALERT AND ORITNED X4. UP AD GURJIT TO B/R. PACEMAKER TO LT CHEST. SCHEDULED FOR CATH IN AM. DENIES ANY NEEDS AT THIS TIME.
[2021-01-30 21:52] LABS: CKMB 17.5 U/L (0.0-3.6); CREATINE KINASE 192 UL (21-232)
[2021-01-30 21:53] LABS: TROPONIN-I 3.284 ng/mL (0.000-0.060)
[2021-01-31] VITALS (11 sets, daily range): BP systolic 114–178; BP diastolic 57–92
[2021-01-31 03:46] LABS: BASOPHILS 0.3 % (0-2); EOSINOPHILS 1.1 % (0-7); HEMATOCRIT 39.9 % (42.0-54.0); IMMATURE GRANULOCYTES 0.3 % (0-5); LYMPHOCYTE ABS# 0.82 10x3/uL (1.32-3.57); LYMPHOCYTES 11.5 % (15-50); MCH 31.7 pg (26.0-34.0); MCHC 32.6 g/dL (31.0-37.0); MCV 97.3 fL (80.0-100.0); MEAN PLATELET VOLUME 9.9 fL (7.4-10.4); MONOCYTES 8.1 % (2-11); NEUTROPHIL ABS# 5.61 10x3/uL (1.78-5.38); NEUTROPHILS 78.7 % (40-80); PLATELET COUNT 171 10x3/uL (130-400); RDW 12.8 % (11.5-14.5); WBC 7.1 10x3/uL (4.8-10.8)
[2021-01-31 04:32] LABS: ALBUMIN 2.9 g/dL (3.4-5.0); ALKALINE PHOSPHATASE 52 U/L (30-120); ALT (SGPT) 17 U/L (10-68); BILIRUBIN - TOTAL 0.47 mg/dL (0.2-1.3); CALC OSMOLALITY 285 mosm/kg (275-300); CALCIUM 8.2 mg/dL (8.5-10.1); CHLORIDE - SERUM 104 mmol/L (98-107); CKMB 24.2 U/L (0.0-3.6); CREATINE KINASE 236 UL (21-232); GLUCOSE 96 mg/dL (74-106); SODIUM 143 mmol/L (136-145); UREA NITROGEN 16 mg/dL (7-18)
[2021-01-31 04:36] LABS: CREATININE - SERUM 1.2 mg/dL (0.6-1.3); eGFR NON AFRICAN AMERICAN 61 mL/min (90-120)
[2021-01-31 04:37] LABS: POTASSIUM - SERUM 2.8 mmol/L (3.5-5.1); TROPONIN-I 4.863 ng/mL (0.000-0.060)
--- NOTE | 2021-01-31 08:42 | NUR ---
NEW IV STARTED TO RIGHT UPPER ARM D/T LEAKING AT PREVIOUS SITE. OTHER IV TO RIGHT FOREARM D/C CATHETER ITNACT, DRESSING APPLIED. PT TOLERATED WELL. PT AWAKE AND ALERT, RR EVEN NON LABROED. PT DENIES ANY PAIN OR NEEDS AT THIS TIME. PT WILL BE GOING FOR HEART CATH TODAY, PT DENIES ANY QUESTIONS. CLWR.
[2021-01-31 10:06] LABS: CKMB 30.5 U/L (0.0-3.6); CREATINE KINASE 340 UL (21-232)
[2021-01-31 10:07] LABS: TROPONIN-I 4.942 ng/mL (0.000-0.060)
[2021-01-31 10:11] LABS: CHOL - HDL RATIO 3.5 ratio (2.3-4.9)
--- NOTE | 2021-01-31 10:12 | NUR ---
PAGED JOSE RAFAEL BROWER REGARDING CRITICAL TROP LEVEL.
--- NOTE | 2021-01-31 10:31 | NUR ---
CRITICAL TROP OF 4.942 REPORTED TO JOSE RAFAEL BROWER AT THIS TIME.
--- NOTE | 2021-01-31 11:58 | NUR ---
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 VS STABLE. RR EVEN NON LABORED. INSTRUCTIONS GIVEN PT STATES UNDERSTANDING. AT BEDSIDE. CLWR.
--- NOTE | 2021-01-31 13:53 | NUR ---
CRITICAL POTASSIUM TREATED PER PROTOCOL VIA EMAR.
--- NOTE | 2021-01-31 19:29 | NUR ---
RECIEVED LAYING IN BED WITH EYES OPEN. ALERT AND ORIENTED X 4. DSG TO RT GROIN CDI. HAS A GOOD PEDAL PULSE. IV TO RT FA SL. DENIES ANY NEEDS AT THIS TIME.
[2021-02-01] VITALS: BP 119/50
[2021-02-01 04:00] VITALS: BP 109/76
[2021-02-01 05:56] LABS: BASOPHILS 0.2 % (0-2); EOSINOPHILS 1.9 % (0-7); HEMATOCRIT 37.6 % (42.0-54.0); IMMATURE GRANULOCYTES 0.2 % (0-5); LYMPHOCYTE ABS# 0.77 10x3/uL (1.32-3.57); LYMPHOCYTES 16.6 % (15-50); MCH 31.3 pg (26.0-34.0); MCHC 31.9 g/dL (31.0-37.0); MCV 97.9 fL (80.0-100.0); MEAN PLATELET VOLUME 10.7 fL (7.4-10.4); MONOCYTES 8.4 % (2-11); NEUTROPHIL ABS# 3.36 10x3/uL (1.78-5.38); NEUTROPHILS 72.7 % (40-80); PLATELET COUNT 168 10x3/uL (130-400); RBC 3.84 10x6/uL (4.20-6.10); RDW 13.1 % (11.5-14.5)
[2021-02-01 06:28] LABS: ALBUMIN 2.5 g/dL (3.4-5.0); ALKALINE PHOSPHATASE 48 U/L (30-120); ALT (SGPT) 17 U/L (10-68); BILIRUBIN - TOTAL 0.49 mg/dL (0.2-1.3); CALC OSMOLALITY 281 mosm/kg (275-300); CALCIUM 8.3 mg/dL (8.5-10.1); CHLORIDE - SERUM 107 mmol/L (98-107); GLUCOSE 98 mg/dL (74-106); POTASSIUM - SERUM 3.4 mmol/L (3.5-5.1); PROTEIN - SERUM 5.7 g/dL (6.4-8.2); SODIUM 141 mmol/L (136-145); UREA NITROGEN 14 mg/dL (7-18); eGFR NON AFRICAN AMERICAN 75 mL/min (90-120)
[2021-02-01 06:33] LABS: WBC 4.6 10x3/uL (4.8-10.8)
[2021-02-01 08:35] VITALS: BP 125/65
[2021-02-01] MEDS ORDERED: PLAVIX75 MG PO (09:07)
[2021-02-01] MEDS ORDERED: BAYER CHEWABLE81 MG PO (10:05)
== END 2021-02-01 11:56 | disposition home or self-care (01) | DRG 247 ==
LOC: D.ER 12:58 → D.M2 15:22
PROVIDERS: Family Medicine; Internal Medicine Cardiovascular Disease; ADMIT Family Medicine; ATTEND Family Medicine
PROC: B3101ZZ Fluoroscopy of Thoracic Aorta using Low Osmolar Contrast (ICD-10-PCS; 2021-01-31)
PROC: B2111ZZ Fluoroscopy of Multiple Coronary Arteries using Low Osmolar Contrast (ICD-10-PCS; 2021-01-31)
PROC: B2181ZZ Fluoroscopy of Left Internal Mammary Bypass Graft using Low Osmolar Contrast (ICD-10-PCS; 2021-01-31)
PROC: B2151ZZ Fluoroscopy of Left Heart using Low Osmolar Contrast (ICD-10-PCS; 2021-01-31)
PROC: 027034Z Dilation of Coronary Artery, One Artery with Drug-eluting Intraluminal Device, Percutaneous Approach (ICD-10-PCS; principal; 2021-01-31 10:11)
PROC: 4A023N7 Measurement of Cardiac Sampling and Pressure, Left Heart, Percutaneous Approach (ICD-10-PCS; 2021-01-31 10:11)
DX: I21.4 Non-ST elevation (NSTEMI) myocardial infarction (principal); I11.0 Hypertensive heart disease with heart failure; I50.9 Heart failure, unspecified; E78.5 Hyperlipidemia, unspecified; N40.0 Benign prostatic hyperplasia without lower urinary tract symptoms; E03.9 Hypothyroidism, unspecified; I48.0 Paroxysmal atrial fibrillation; I25.119 Atherosclerotic heart disease of native coronary artery with unspecified angina pectoris

== ENCOUNTER 2021-02-21 17:50 | Inpatient (IN) | payer MEDICARE, OTHER ==
[~2021-02-21] VITALS: Ht 188 cm; Wt 133.8 kg
[2021-02-21 18:51] LABS: BASOPHILS 0.2 % (0-2); EOSINOPHILS 0.1 % (0-7); HEMATOCRIT 39.6 % (42.0-54.0); HEMOGLOBIN 12.8 g/dL (13.5-17.5); IMMATURE GRANULOCYTES 0.3 % (0-5); LYMPHOCYTE ABS# 0.97 10x3/uL (1.32-3.57); LYMPHOCYTES 8.2 % (15-50); MCH 31.9 pg (26.0-34.0); MCHC 32.3 g/dL (31.0-37.0); MCV 98.8 fL (80.0-100.0); MEAN PLATELET VOLUME 10.7 fL (7.4-10.4); MONOCYTES 5.4 % (2-11); NEUTROPHIL ABS# 10.15 10x3/uL (1.78-5.38); NEUTROPHILS 85.8 % (40-80); PLATELET COUNT 189 10x3/uL (130-400); RBC 4.01 10x6/uL (4.20-6.10); RDW 13.4 % (11.5-14.5); WBC 11.8 10x3/uL (4.8-10.8)
[2021-02-21 18:57] LABS: INR 1.36 (0.85-1.17); PROTIME 15.6 SECONDS (11.6-15.0)
[2021-02-21 19:00] LABS: ANION GAP 9.9 mmol/L (8-16); CALCIUM 8.9 mg/dL (8.5-10.1); CARBON DIOXIDE 27.2 mmol/L (21.0-32.0); CREATININE - SERUM 1.4 mg/dL (0.6-1.3); POTASSIUM - SERUM 3.1 mmol/L (3.5-5.1)
[2021-02-21 19:12] LABS: BILIRUBIN - TOTAL 0.9 mg/dL (0.2-1.3); PROTEIN - SERUM 7.2 g/dL (6.4-8.2)
[2021-02-21 20:00] VITALS: BP 121/51
--- NOTE | 2021-02-21 20:10 | NUR ---
20G PIV STARTED TO LEFT FOREARM. D5NS INFUSING.
[2021-02-22] VITALS: BP 106/48
[2021-02-22 01:00] VITALS: BMI 37.9
[2021-02-22 04:00] VITALS: BP 112/52
[2021-02-22 05:58] LABS: BILIRUBIN NEGATIVE (NEGATIVE); KETONE NEGATIVE (NEGATIVE); NITRITE NEGATIVE (NEGATIVE); UROBILINOGEN NORMAL mg/dL (< 2)
[2021-02-22 06:00] LABS: BACTERIA FEW HPF (NONE SEEN); SQUAMOUS EPITHELIAL 0-5 HPF (0-4); WHITE CELLS - URINE 0-5 HPF (0-1)
--- NOTE | 2021-02-22 07:16 | NUR ---
PATIENT K+ IS LOW ADMINISTERED PRN K+ TO REPLETE PER PROTOCOL. CONTINUE WITH PLAN OF CARE
[2021-02-22 07:20] LABS: BASOPHILS 0.2 % (0-2); EOSINOPHILS 0.4 % (0-7); HEMATOCRIT 36.2 % (42.0-54.0); HEMOGLOBIN 11.5 g/dL (13.5-17.5); IMMATURE GRANULOCYTES 0.3 % (0-5); LYMPHOCYTE ABS# 0.75 10x3/uL (1.32-3.57); LYMPHOCYTES 7.3 % (15-50); MCH 31.3 pg (26.0-34.0); MCHC 31.8 g/dL (31.0-37.0); MCV 98.4 fL (80.0-100.0); MEAN PLATELET VOLUME 11.3 fL (7.4-10.4); MONOCYTES 5.7 % (2-11); NEUTROPHILS 86.1 % (40-80); PLATELET COUNT 181 10x3/uL (130-400); RBC 3.68 10x6/uL (4.20-6.10); RDW 13.5 % (11.5-14.5); WBC 10.2 10x3/uL (4.8-10.8)
[2021-02-22 07:53] LABS: ALBUMIN 2.5 g/dL (3.4-5.0); BILIRUBIN - TOTAL 0.69 mg/dL (0.2-1.3); CALCIUM 8.2 mg/dL (8.5-10.1); CARBON DIOXIDE 25.2 mmol/L (21.0-32.0); CREATININE - SERUM 1.3 mg/dL (0.6-1.3); PHOSPHOROUS 2.7 mg/dL (2.5-4.9); POTASSIUM - SERUM 3.2 mmol/L (3.5-5.1); PROTEIN - SERUM 5.8 g/dL (6.4-8.2)
[2021-02-22 10:11] VITALS: BP 147/77
[2021-02-22 14:45] VITALS: Ht 188 cm; Wt 133.8 kg
[2021-02-22 14:48] VITALS: BP 125/56
--- NOTE | 2021-02-22 16:34 | NUR ---
I have reviewed this patient and I concur with the Shift Assessment completed by the Licensed Practical Nurse today this shift.
[2021-02-22 17:11] VITALS: BP 135/59
--- NOTE | 2021-02-22 19:50 | NUR ---
RECEIVED BEDSIDE REPORT. PT LAYIGN IN BED A&O X4. PIV TO LEFT WRIST PATENT AND INFUSING, NO REDNESS OR SWELLLING. PT ABLE TO AMBULATE WITH ASSIST, URINAL AT BS. EDUCATED PT ON CL AND NEEDS, VERBALIZED UNDERSTANDING. BED LOW, CL IN REACH.
[2021-02-22 20:00] VITALS: BP 134/59
[2021-02-23] VITALS: BP 126/57
[2021-02-23 04:00] VITALS: BP 140/54
[2021-02-23 05:18] LABS: BASOPHILS 0.2 % (0-2); EOSINOPHILS 1.4 % (0-7); HEMATOCRIT 34.4 % (42.0-54.0); HEMOGLOBIN 11.1 g/dL (13.5-17.5); IMMATURE GRANULOCYTES 0.2 % (0-5); LYMPHOCYTE ABS# 0.47 10x3/uL (1.32-3.57); MCH 31.6 pg (26.0-34.0); MCHC 32.3 g/dL (31.0-37.0); MEAN PLATELET VOLUME 10.9 fL (7.4-10.4); MONOCYTES 5.3 % (2-11); NEUTROPHIL ABS# 4.97 10x3/uL (1.78-5.38); NEUTROPHILS 84.9 % (40-80); PLATELET COUNT 160 10x3/uL (130-400); RBC 3.51 10x6/uL (4.20-6.10); RDW 13.4 % (11.5-14.5)
[2021-02-23 05:24] LABS: WBC 5.9 10x3/uL (4.8-10.8)
[2021-02-23 05:41] LABS: ALBUMIN 2.1 g/dL (3.4-5.0); ANION GAP 10.7 mmol/L (8-16); BILIRUBIN - TOTAL 0.41 mg/dL (0.2-1.3); CALCIUM 8.2 mg/dL (8.5-10.1); CARBON DIOXIDE 24.4 mmol/L (21.0-32.0); CREATININE - SERUM 1.1 mg/dL (0.6-1.3); PHOSPHOROUS 2.4 mg/dL (2.5-4.9); POTASSIUM - SERUM 3.1 mmol/L (3.5-5.1); PROTEIN - SERUM 5.7 g/dL (6.4-8.2)
--- NOTE | 2021-02-23 08:03 | NUR ---
PATIENT SITTING UP IN BED STATES " I FEEL GREAT THIS MORNING" NO C/O ABD PAIN, ASKED WHEN DOCTORS WILL BE IN. IV IN LEFT FA PATENT, SITE CDI, BOWEL SOUNDS ACTIVE. PATIENT STATED HE HAD LOOSE BOWEL MOVEMENT THIS MORNING. ASKED FOR COFFEE AND WATER. NO OTHER NEEDS VOICED. CONTINUE WITH PLAN OF CARE
--- NOTE | 2021-02-23 08:16 | NUR ---
PATIENT K+ IS LOW THIS MORNING. WILL FOLLOW ELECTROLYTE PROTOCOL AND REPLETE
[2021-02-23] MEDS ORDERED: BAYER CHEWABLE81 MG PO (08:23)
[2021-02-23] MEDS ORDERED: COZAAR50 MG PO (08:24)
[2021-02-23 08:34] VITALS: BP 144/63
--- NOTE | 2021-02-23 10:58 | NUR ---
I have reviewed this patient and I concur with the Shift Assessment completed by the Licensed Practical Nurse today this shift.
--- NOTE | 2021-02-23 12:16 | NUR ---
PATIENT INQUIRING WHEN DOCTORS ARE COMING FOR ROUNDS, HE IS READY FOR DC STATED HE FEELS MUCH BETTER. SPOUSE AT BEDSIDE, CONTINUE WITH PLAN OF CARE
--- NOTE | 2021-02-23 12:23 | NUR ---
Nutrition follow-up: Visited with pt and spouse during RD rounds. Pt and spouse have been for 62 years! Pt reports feeling much better today. Diet order: clear liquids Labs reviewed Wt: 295# Surgery placed on hold due to infection; possible resecheduled for the next 48 hours. Recommedations: Diet advanced to as tolerated today. RDN follow-up: 02/28/21
[2021-02-23 12:49] VITALS: BP 138/60
[2021-02-23 16:40] VITALS: BP 146/64
[2021-02-23 20:00] VITALS: BP 163/66; BP 165/63
--- NOTE | 2021-02-24 03:29 | NUR ---
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 PT HIS ANXIOUS DUE TO PROCEDURE BEEN PERFORMED IN THE AM. PT IS RESTING WITH EYES CLOSED AT THEM MOMENT WILL CONT TO MONITOR.
[2021-02-24 04:00] VITALS: BP 147/68
--- NOTE | 2021-02-24 04:00 | NUR ---
I have reviewed this patient and I concur with the Shift Assessment completed by the Licensed Practical Nurse today this shift.
[2021-02-24 07:25] LABS: ALBUMIN 2.3 g/dL (3.4-5.0); ALKALINE PHOSPHATASE 48 U/L (30-120); ALT (SGPT) 12 U/L (10-68); BILIRUBIN - TOTAL 0.34 mg/dL (0.2-1.3); CALC OSMOLALITY 278 mosm/kg (275-300); CALCIUM 8.2 mg/dL (8.5-10.1); CARBON DIOXIDE 23.9 mmol/L (21.0-32.0); CHLORIDE - SERUM 107 mmol/L (98-107); GLUCOSE 110 mg/dL (74-106); MAGNESIUM - SERUM 2.1 mg/dL (1.8-2.4); PHOSPHOROUS 2.3 mg/dL (2.5-4.9); PROTEIN - SERUM 6.3 g/dL (6.4-8.2); SODIUM 140 mmol/L (136-145); UREA NITROGEN 10 mg/dL (7-18); eGFR NON AFRICAN AMERICAN 75 mL/min (90-120)
[2021-02-24 08:14] LABS: BASOPHILS 0.5 % (0-2); EOSINOPHILS 2.5 % (0-7); HEMATOCRIT 35.8 % (42.0-54.0); HEMOGLOBIN 11.6 g/dL (13.5-17.5); IMMATURE GRANULOCYTES 0.2 % (0-5); LYMPHOCYTE ABS# 0.58 10x3/uL (1.32-3.57); LYMPHOCYTES 13.3 % (15-50); MCH 31.8 pg (26.0-34.0); MCHC 32.4 g/dL (31.0-37.0); MCV 98.1 fL (80.0-100.0); MEAN PLATELET VOLUME 11.2 fL (7.4-10.4); MONOCYTES 7.6 % (2-11); NEUTROPHILS 75.9 % (40-80); PLATELET COUNT 187 10x3/uL (130-400); RBC 3.65 10x6/uL (4.20-6.10); RDW 13.3 % (11.5-14.5)
[2021-02-24 08:19] LABS: WBC 4.4 10x3/uL (4.8-10.8)
[2021-02-24 08:52] VITALS: BP 148/66
--- NOTE | 2021-02-24 09:53 | NUR ---
ALERT AND ORIENTED. ASSESSMENT COMPLETE. AT BEDSIDE. DENIES NEEDS. BED LOW. CALL SOMERS AND PERSONAL ITEMS IN REACH. WILL CONTINUE TO MONITOR.
--- NOTE | 2021-02-24 12:26 | NUR ---
PREOP MEDS GIVEN PER ORDER.
[2021-02-24 12:29] VITALS: BP 159/67
--- NOTE | 2021-02-24 13:16 | NUR ---
PATIENT TAKEN FOR PROCEDURE.
--- NOTE | 2021-02-24 13:31 | NUR ---
ORDER PLACED FOR EKG AT 1316. SURGERY CALLED AND STATED NURSE NEEDS TO COME DO EKG D/T DIDN'T PERFORM EKG ON FLOOR. PATIENT WAS TAKE FOR SURGERY PRIOR TO ORDER BEING PLACED. SEE PREVIOUS NOTE THAT PATIENT WAS TAKEN FOR PROCEDURE ALREADY. CALLED SURGERY BACK TO NOTIFY THAT ORDER WAS NOT IN PRIOR TO PATIENT LEAVING FLOOR.
--- NOTE | 2021-02-24 14:29 | NUR ---
GOLD COLORED [place] BAND REMOVED IN HOLDING AREA & GIVEN TO CHARGE NURSE ISAIAH ZUNIGA RN- S DORIS AYALA
--- NOTE | 2021-02-24 17:25 | NUR ---
PULLED PT ARTERIAL LINE TO LEFT RADIAL ARTERY PER ANESTHESIA ORDER, WITH TIP INTACT. PT TOLERATED WELL.
[2021-02-24 18:12] VITALS: BP 152/66
--- NOTE | 2021-02-24 18:21 | NUR ---
PATIENT RETURNED FROM PROCEDURE. VSS. BRADLY C/D/I. WILL CONTINUE TO MONITOR.
--- NOTE | 2021-02-25 02:27 | NUR ---
I have reviewed this patient and I concur with the Shift Assessment completed by the Licensed Practical Nurse today this shift.
--- NOTE | 2021-02-25 04:51 | NUR ---
PT HAS BEEN RESTING MOST OF THE NIGHT COMPLAINT OF PAIN ONCE AND REQUEST MED. MED WAS GIVEN AND HE IS FEELING MUCH BETTER AT THE MOMENT. WILL CONT PLAN OF CARE.
[2021-02-25 05:48] VITALS: BP 133/80
[2021-02-25 06:04] VITALS: BP 135/75
[2021-02-25 06:49] LABS: BASOPHILS 0 % (0-2); EOSINOPHILS 0 % (0-7); HEMATOCRIT 34.3 % (42.0-54.0); HEMOGLOBIN 10.9 g/dL (13.5-17.5); IMMATURE GRANULOCYTES 0.2 % (0-5); LYMPHOCYTE ABS# 0.32 10x3/uL (1.32-3.57); LYMPHOCYTES 5.8 % (15-50); MCH 31.1 pg (26.0-34.0); MCHC 31.8 g/dL (31.0-37.0); MCV 97.7 fL (80.0-100.0); MONOCYTES 5.9 % (2-11); NEUTROPHILS 88.1 % (40-80); PLATELET COUNT 190 10x3/uL (130-400); RBC 3.51 10x6/uL (4.20-6.10); RDW 13.4 % (11.5-14.5)
[2021-02-25 06:59] LABS: WBC 5.6 10x3/uL (4.8-10.8)
[2021-02-25 07:35] LABS: ALBUMIN 2.1 g/dL (3.4-5.0); ANION GAP 13.3 mmol/L (8-16); BILIRUBIN - TOTAL 0.2 mg/dL (0.2-1.3); CALCIUM 8.1 mg/dL (8.5-10.1); CREATININE - SERUM 1.1 mg/dL (0.6-1.3); MAGNESIUM - SERUM 2.1 mg/dL (1.8-2.4); PHOSPHOROUS 2.8 mg/dL (2.5-4.9); POTASSIUM - SERUM 3.3 mmol/L (3.5-5.1); PROTEIN - SERUM 5.8 g/dL (6.4-8.2)
[2021-02-25 08:27] VITALS: BP 166/68
[2021-02-25 12:43] VITALS: BP 173/67
--- NOTE | 2021-02-25 14:17 | NUR ---
PT COMPLAINT OF CHEST PAIN, WORSENED WHEN SAT UP, PT STATES HAS NOT HAD GAS OR BURPS SINCE SURGERY, PT SAT UP IN BED FOR MEDICATION ADMINISTRATION, PT WAS ABLE TO BURP WHICH RELIEVED THE PRESSURE AND PAIN
--- NOTE | 2021-02-25 14:28 | NUR ---
REHAB PRESCREENING Rehab referral received and chart reviewed. This patient is POD 1 and awaiting physical therapy evaluation. Rehab will continue to follow for tolerance of advanced diet and progress with PT in order to assessf admission criteria. Thank you for this referral! Orquidea De La Vega, CLINICAL LABORATORY DIRECTOR Rehab [facility]
[2021-02-25 17:23] VITALS: BP 140/74
--- NOTE | 2021-02-25 19:37 | NUR ---
PATIENT RESTING IN BED WITH NO S/S OF DISTRESS. PATIENT DENIES AT THIS TIME. PLACED SCD HOSE ON PATIENT. CONNECTED TO IV. BED IN LOWEST POSITION, CALL LIGHT IN REACH, AND BED ALARM ON. ENCOURAGED PATIENT TO CALL WITH NEEDS.
[2021-02-25 20:00] VITALS: BP 88/65
--- NOTE | 2021-02-25 20:10 | NUR ---
ADMINISTERED MEDS PER ORDERS INCLUDING PAIN MED PER PATIENT REQUEST. PATIENT DENIES OTHER NEEDS AT THIS TIME. BED IN LOWEST POSITION AND CALL LIGHT IN REACH. ENCOURAGED PATIENT TO CALL WITH NEEDS.
[2021-02-26 05:31] LABS: BASOPHILS 0.1 % (0-2); EOSINOPHILS 0.1 % (0-7); HEMATOCRIT 37.1 % (42.0-54.0); HEMOGLOBIN 11.9 g/dL (13.5-17.5); IMMATURE GRANULOCYTES 0.1 % (0-5); LYMPHOCYTE ABS# 0.61 10x3/uL (1.32-3.57); LYMPHOCYTES 8.7 % (15-50); MCH 31.2 pg (26.0-34.0); MCHC 32.1 g/dL (31.0-37.0); MCV 97.1 fL (80.0-100.0); MEAN PLATELET VOLUME 10.7 fL (7.4-10.4); MONOCYTES 8.5 % (2-11); NEUTROPHIL ABS# 5.78 10x3/uL (1.78-5.38); NEUTROPHILS 82.5 % (40-80); PLATELET COUNT 201 10x3/uL (130-400); RBC 3.82 10x6/uL (4.20-6.10); RDW 13.3 % (11.5-14.5)
[2021-02-26 05:49] LABS: ALKALINE PHOSPHATASE 42 U/L (30-120); BILIRUBIN - TOTAL 0.18 mg/dL (0.2-1.3); CALC OSMOLALITY 282 mosm/kg (275-300); CALCIUM 8.1 mg/dL (8.5-10.1); CARBON DIOXIDE 22.3 mmol/L (21.0-32.0); CHLORIDE - SERUM 110 mmol/L (98-107); GLUCOSE 158 mg/dL (74-106); MAGNESIUM - SERUM 2.2 mg/dL (1.8-2.4); PHOSPHOROUS 2.4 mg/dL (2.5-4.9); POTASSIUM - SERUM 3.1 mmol/L (3.5-5.1); PROTEIN - SERUM 5.8 g/dL (6.4-8.2); SODIUM 141 mmol/L (136-145); UREA NITROGEN 9 mg/dL (7-18); eGFR NON AFRICAN AMERICAN 75 mL/min (90-120)
[2021-02-26 05:51] LABS: ALT (SGPT) 13 U/L (10-68)
[2021-02-26 07:00] VITALS: BP 183/76
--- NOTE | 2021-02-26 14:24 | NUR ---
PATIENT UP AND DOWN FROM BED TO CHAIR AT BEDISDE TWICE SO FAR TODAY, ADMINISTERED [employer]LL SUPPOSITORY AND PATIENT WENT TO RESTROOM ONCE BUT STATED FALSE ALARM. CAR DRAIN EMPTIED 3 TIMES NOW TOTALING 340. ONLY RECORDED 220 FOR NOW WILL CONTINUE WITH PLAN OF CARE
--- NOTE | 2021-02-26 15:19 | NUR ---
I have reviewed this patient and I concur with the Shift Assessment completed by the Licensed Practical Nurse today this shift.
[2021-02-26 15:29] VITALS: BP 114/67
--- NOTE | 2021-02-26 16:14 | NUR ---
RECONNECTED NGT TO LIS, NO OTHER NEEDS AT THIS TIME. CONTINUE WITH PLAN OF CARE, EMPTIED ANOTHER 50CC FROM DRAIN
[2021-02-27] VITALS: BP 129/78
--- NOTE | 2021-02-27 03:42 | NUR ---
PATIENT'S PAIN WAS MANAGED WITH THE PRESCRIBED PAIN MEDICATIONS, HE HAS RESTED WELL, HE IS CURRENTLY RESTING IN BED WITH HIS EYES CLOSED.
[2021-02-27 06:31] LABS: BASOPHILS 0.3 % (0-2); EOSINOPHILS 1.4 % (0-7); HEMATOCRIT 36.1 % (42.0-54.0); HEMOGLOBIN 11.7 g/dL (13.5-17.5); IMMATURE GRANULOCYTES 0.3 % (0-5); LYMPHOCYTES 13.8 % (15-50); MCH 31.5 pg (26.0-34.0); MCHC 32.4 g/dL (31.0-37.0); MCV 97.3 fL (80.0-100.0); MEAN PLATELET VOLUME 10.5 fL (7.4-10.4); MONOCYTES 8.3 % (2-11); NEUTROPHIL ABS# 4.95 10x3/uL (1.78-5.38); NEUTROPHILS 75.9 % (40-80); PLATELET COUNT 233 10x3/uL (130-400); RBC 3.71 10x6/uL (4.20-6.10); RDW 13.7 % (11.5-14.5); WBC 6.5 10x3/uL (4.8-10.8)
[2021-02-27 06:44] LABS: ALBUMIN 1.9 g/dL (3.4-5.0); ALKALINE PHOSPHATASE 36 U/L (30-120); ALT (SGPT) 11 U/L (10-68); BILIRUBIN - TOTAL 0.15 mg/dL (0.2-1.3); CALC OSMOLALITY 289 mosm/kg (275-300); CARBON DIOXIDE 23.3 mmol/L (21.0-32.0); CHLORIDE - SERUM 112 mmol/L (98-107); CREATININE - SERUM 0.8 mg/dL (0.6-1.3); GLUCOSE 139 mg/dL (74-106); POTASSIUM - SERUM 3.4 mmol/L (3.5-5.1); PROTEIN - SERUM 5.3 g/dL (6.4-8.2); SODIUM 145 mmol/L (136-145); UREA NITROGEN 11 mg/dL (7-18); eGFR NON AFRICAN AMERICAN > 90 mL/min (90-120)
--- NOTE | 2021-02-27 09:06 | NUR ---
CLAMPED PT NGT AND ADMINISTERED PRN PAIN MEDICATION, PATIENT STATED PAIN IS AT AN 8 BUT MORE WHERE THE TUBE IS THAN ABDOMEN. ADMINISTERED SCHEDFULED SUPPOSITORY WELL. CONTINUE WITH PLAN OF CARE
[2021-02-27 10:18] VITALS: BP 170/89
--- NOTE | 2021-02-27 11:30 | NUR ---
REHAB PRESCREEN RECEIVED. PT IS CURRENTLY NPO WITH A NGT-LIS. HE WILL HAVE TO BE ABLE TO TOLERATE A DIET TO COME DOWNSTAIRS. ALSO, HE IS WALKING 40 FEET WITH 15% ASSIST AND PHYSICAL THERAPY IS RECOMMENDING HOME WITH ROLLING WALKER. WE WILL CONTINUE TO FOLLOW THIS PATIENT TO SEE HOW HE DOES OVER THE NEXT FEW DAYS SO THAT WE CAN DETERMIN IF HE MEETS THE CRITERIA OF NEEDING THERAPY FOR 3 HOURS A DAY AT LEAST 5 DAYS A WEEK. THANK YOU FOR THE REFERRAL. MORENO MACIEL RN CLINICAL LIAISON, INPATIENT REHAB.
[2021-02-27 14:00] VITALS: BP 144/58
--- NOTE | 2021-02-27 14:59 | NUR ---
I have reviewed this patient and I concur with the Shift Assessment completed by the Licensed Practical Nurse today this shift.
--- NOTE | 2021-02-27 15:21 | NUR ---
RECONNECTED PATIENT BACK TO NGT AND IV FLUIDS AFTER WALKING INTERMEDIATE AROUND [facility] WITH MYSELF AND SPOUSE, PATIENT C/O WEAKNESS IN KNEES AND NEEDED TO SIT BACK DOWN, PULLED CATHETER THAT WAS INSERTED SATURDAY DURING PROCEDURE, PATIENT IS ABLE TO GET UP AND GO TO RESTROOM WITH ASSISTANCE. BLADDER TRAINED BEFORE DISCONTINUING CATHERTER, CONTINUE WITH PLAN OF CARE
[2021-02-27 17:54] VITALS: BP 170/64
[2021-02-27 20:00] VITALS: BP 155/63
[2021-02-28] VITALS: BP 148/67
--- NOTE | 2021-02-28 00:45 | NUR ---
I CALLED TO GET A RHYTHEM ON MY PATIENT AND THEY SAID UNCONTROLLED A-FIB, THEN SAID NO SR 69. A FEW MINUTES LATER SHE CALLED BACK AND SAID NO IT IS UNCONTROLLED A-FIB. I CALLED AGAIN ASKING FOR A STRIP AND TO SEE WHAT HE WAS DOING AND HE WAS STILL UNCONTROLLED A-FIB. I NOTIFIED YANG NI AND SHE SAID TO PUT IN A CONSULT TO CARDIOLOGY. I THEN PAGED DR. MALINDA ALBA AND HE SAID TO TRANSFER TO PCU BOLUS CARDIZEM 15 MG THEN A CARDIZEM DRIP 10MG/HR. OLIVING MACHINE OPERATOR WAS NOTIFIED OF ORDER TO TRANSFER. WE ARE NOW WAITING ON A ROOM SO WE CAN TRANSFER.
--- NOTE | 2021-02-28 02:07 | NUR ---
PATIENT WAS TRANSFERRED TO ROOM 2116, REPORT GIVEN TO CONCETTA AYALA,I NOTIFIED THE PATIENTS THAT HE WAS TRANSFERRED. ALL BELOGINGS WERE TAKEN WITH HIM.
[2021-02-28 04:00] VITALS: BP 131/75
[2021-02-28 06:07] LABS: BASOPHILS 0.7 % (0-2); EOSINOPHILS 1.7 % (0-7); HEMATOCRIT 36.2 % (42.0-54.0); HEMOGLOBIN 12.2 g/dL (13.5-17.5); LYMPHOCYTES 11.7 % (15-50); MCH 32.1 pg (26.0-34.0); MCHC 33.8 g/dL (31.0-37.0); MEAN PLATELET VOLUME 8.2 fL (7.4-10.4); MONOCYTES 8.1 % (2-11); NEUTROPHILS 77.8 % (40-80); RBC 3.81 10x6/uL (4.20-6.10); RDW 13.7 % (11.5-14.5); WBC 6.7 10x3/uL (4.8-10.8)
[2021-02-28 06:22] LABS: MCV 94.9 fL (80.0-100.0); PLATELET COUNT 283 10x3/uL (130-400)
[2021-02-28 07:08] LABS: ALBUMIN 1.9 g/dL (3.4-5.0); ALKALINE PHOSPHATASE 42 U/L (30-120); CALC OSMOLALITY 287 mosm/kg (275-300); CALCIUM 7.9 mg/dL (8.5-10.1); CHLORIDE - SERUM 111 mmol/L (98-107); CREATININE - SERUM 0.8 mg/dL (0.6-1.3); GLUCOSE 134 mg/dL (74-106); PROTEIN - SERUM 5.4 g/dL (6.4-8.2); SODIUM 144 mmol/L (136-145); UREA NITROGEN 10 mg/dL (7-18); eGFR NON AFRICAN AMERICAN > 90 mL/min (90-120)
[2021-02-28 07:09] LABS: ALT (SGPT) 16 U/L (10-68)
[2021-02-28 07:10] LABS: POTASSIUM - SERUM 2.9 mmol/L (3.5-5.1)
--- NOTE | 2021-02-28 14:07 | CN ---
PATIENT NAME:ISHA ROPER MEDICAL RECORD: [id number] : 32 LOCATION:D. D.2117 ADMIT DATE: 02/21/21 ACCOUNT: [id number] CONSULTING PHYSICIAN: MALINDA ALBA MD REFERRING PHYSICIAN: MANUEL SHARMA DO DATE OF CONSULTATION: 02/28/2021 HISTORY OF PRESENT ILLNESS: An 89-year-old gentleman well known to me with history of coronary artery disease, status post coronary artery bypass grafting, subsequent stenting. He has a history of sick sinus syndrome, status post pacemaker placement, known atrial fibrillation, recently admitted and underwent appendectomy, still having trouble with possible ileus versus obstruction, converted to atrial fibrillation, back in sinus rhythm on Cardizem drip, currently n.p.o., has not been getting his previous rhythm medications, etc. We are asked to see him concerning his cardiovascular status. PAST MEDICAL HISTORY: Includes; 1. History of hypertension. 2. Hyperlipidemia. 3. Diabetes mellitus. 4. Coronary artery disease as described above. 5. Mild peripheral vascular disease. ALLERGIES: PENICILLIN, MORPHINE, TAPE. MEDICATIONS: Typically include DuoNeb q.i.d., Eliquis 2.5 b.i.d., Plavix 75 every day, amiodarone 200 every day, Ziac 10/6.25 every day, losartan 50 b.i.d., aspirin 81 every day, Synthroid 75 mcg every day. SOCIAL HISTORY: Nonsmoker, nondrinker. Typically takes care of all his ADLs on a regular basis up until current illness. REVIEW OF SYSTEMS: The patient reports easy bruising but reports no swollen glands. The patient reports no fever, no night sweats, no significant weight gain, no significant weight loss. No significant exercise tolerance. The patient reports no dry eyes, no irritation, no vision change. Patient reports no difficulty hearing and no ear pain. Patient reports no frequent nose bleeds or nose and sinus problems. Patient reports on arm pain on exertion. No shortness of breath while lying down. No history of heart murmur. Patient reports no cough, no wheezing or coughing up blood. Patient reports no abdominal pain, no vomiting. Normal appetite. No diarrhea and not vomiting blood. No nausea and no constipation. Patient reports no incontinence. No difficulty urinating. No hematuria. No increased frequency. Patient reports no muscle aches. No weakness, no arthralgias, no back pain. No swelling of the extremities. Patient reports no abnormal mole, no jaundice, no rashes. Reports no loss of consciousness. No weakness and no numbness. No seizures, dizziness, or headaches. The patient reports no depression, no sleep disturbance, feeling safe in a relationship and no alcohol abuse. Patient reports on fatigue. Reports no runny nose or sinus pressure. No itching, no hives, and no frequent sneezing. PHYSICAL EXAMINATION: VITAL SIGNS: Somewhat somnolence, appears stated age. VITAL SIGNS: Blood pressure 131/75, pulse 86 and regular. HEENT: Normocephalic, atraumatic. CONSULT REPORT [id number] ISHA ROPER NECK: No bruits noted. HEART: Regular, II/ systolic ejection murmur. LUNGS: Fairly good air excursion. ABDOMEN: Mild tenderness. Quiet bowel sounds. EXTREMITIES: Pulses are decreased. No edema. IMPRESSION AND PLAN: Postoperative atrial fibrillation, suspect secondary to increased catecholamine drive postoperatively, etc., as well as being n.p.o. at this point, responding nicely to Cardizem drip. He can continue this agent until he can take p.o. Will follow with you during this admission. TRANSINT:[id number] Voice Confirmation ID: [id number] DOCUMENT ID: [id number] MALINDA ALBA MD at 1407 CC: [id number] DICTATION DATE: 02/28/21902 NURSE CARE MANAGER: 02/28/21 1200 ADM IN [id number] [place] [address]
--- NOTE | 2021-02-28 15:26 | NUR ---
OT NOTE: PT PERFORMED WELL. BED MOB WITH MOD ASSIST; SIT TO STAND WITH MOD ASSIST; SIMPLE GROOMING WITH SET UP; ABLE TO LES GOWN WITH SET UP; MOD ASSIST TO LES SOCKS; TRANSFER TO TOILET WITH MOD ASSIST; IN ROOM AMB WITH RW AND MIN ASSIST NICOLE ULLOA, OTR/L [id number]
--- NOTE | 2021-02-28 16:39 | NUR ---
OT NOTE: PT COMPLETED BED MOB TASKS WITH CGA-MIN A. PT COMPLETED EOB SITTING WITH SBA. PT COMPLETED SIT TO STAND WITH MIN A. PT COMPLETED HAND HYGIENE WITH SETUP. PT COMPLETED ORAL CARE WITH TOOTHETTE WITH SETUP. [phone] BLANCA NOVOA COTA
--- NOTE | 2021-02-28 17:30 | NUR ---
ALERT AND ORIENTED X4. SITTING UP IN BED. SUTURES REMOVED FROM FROM CAR DRAIN. CAR DRAIN REMOVED TIP INTACT. DENIES ANY OTHER NEEDS. CONTROLLED AFIB ON TELEMETRY. CONTINUE PLAN OF CARE AND SAFETY PRECAUTIONS.
--- NOTE | 2021-02-28 19:11 | NUR ---
RECIEVED UP IN BED WITH EYES OPEN AND TV ON. ALERT AND ORIENTED X4. UP WITH ASSIST. NG TUBE WITH LOW INTERMEDIATE SUCTION IN PLACE. 4 SMALL DSG TO ABDOMEN INTACT. ABD DISTENDED. FIRM IN SOME AREAS. BOWEL SOUNDS HYPOACTIVE. STATES " IT WAS A LOT HARDER THAN THAT". CONT TO HAVE CARDIZEM AT 100CC/HR AND NS AT 100CC/HR. DENIES ANY NEEDS AT THIS TIME.
[2021-02-28 21:00] VITALS: BP 158/62
[2021-03-01] VITALS: BP 153/69
[2021-03-01 04:00] VITALS: BP 118/61
--- NOTE | 2021-03-01 05:26 | NUR ---
HE SAID HE PASSED A LOT OF GAS LAST NIGHT. HE WAS TURNED ONTO HIS SIDE WHILE LAYING FLAT IN BED. ONTO BOTH SIDES. TO HELP HIM MOVE GAS.
[2021-03-01 06:21] LABS: BASOPHILS 0.9 % (0-2); HEMATOCRIT 37.8 % (42.0-54.0); HEMOGLOBIN 12.5 g/dL (13.5-17.5); MCH 31.2 pg (26.0-34.0); MCHC 33.2 g/dL (31.0-37.0); MCV 93.9 fL (80.0-100.0); MEAN PLATELET VOLUME 7.4 fL (7.4-10.4); MONOCYTES 9.2 % (2-11); NEUTROPHILS 77.9 % (40-80); PLATELET COUNT 322 10x3/uL (130-400); RBC 4.02 10x6/uL (4.20-6.10); RDW 13.4 % (11.5-14.5); WBC 6.4 10x3/uL (4.8-10.8)
[2021-03-01 06:41] LABS: ALKALINE PHOSPHATASE 41 U/L (30-120); BILIRUBIN - TOTAL 0.25 mg/dL (0.2-1.3); CALC OSMOLALITY 287 mosm/kg (275-300); CALCIUM 7.8 mg/dL (8.5-10.1); CARBON DIOXIDE 24.8 mmol/L (21.0-32.0); CHLORIDE - SERUM 111 mmol/L (98-107); GLUCOSE 148 mg/dL (74-106); PROTEIN - SERUM 5.4 g/dL (6.4-8.2); SODIUM 144 mmol/L (136-145); UREA NITROGEN 8 mg/dL (7-18); eGFR NON AFRICAN AMERICAN 75 mL/min (90-120)
[2021-03-01 06:53] LABS: ALT (SGPT) 26 U/L (10-68); POTASSIUM - SERUM 2.8 mmol/L (3.5-5.1)
--- NOTE | 2021-03-01 07:15 | NUR ---
RECEIVE SHIFT REPORT. RESTING IN BED. DENIES ANY NEEDS AT THIS TIME. STATES HE IS PASSING GAS AND HAS BEEN ALL NIGHT. STATES HE IS FEELING BETTER THAN HE WAS. STILL NPO AND AT BEDSIDE STATES HE HASNT BEEN ABLE TO EAT OR DRINK ANYTHING SINCE 02/21/21. WOULD LIKE TO SPEAK WITH . WILL CONTINUE POC AND SAFETY PRECAUTIONS.
[2021-03-01 08:00] VITALS: BP 151/94
--- NOTE | 2021-03-01 10:05 | NUR ---
PHONE CALL FROM CUSTOMS VERIFIER WHO WANTS ME TO TALK TO WITH CONCERNS FOR PATIENT ADVOCATE AND ANSWER QUESTIONS. I WENT INTO THE ROOM AND EXPLAINED WHO I WAS AND WHY. TO STATE THAT EVERYTHING WAS OKAY, THAT THE PROBLEM STARTED ON OTHER SIDE. I ASKED IF I COULD STILL REVIEW THE CHART WITH HER AND THE YOUNG MAN IN THE ROOM. PATIENT IS IN THE CHAIR WITH THE NG TUBE TO SUCTION. HE GAVE PERMISSION FOR ME TO TALK TO THEM. I EXPLAINED THAT POSSIBLY THE REGLAN TO HELP STIMULATE THE GUT MIGHT HAVE CAUSED THE IRREGULAR HEART RATE BUT THAT HE WAS ON A CARDIZEM DRIP TO HELP WITH THAT. THE PATIENT STATES THAT HE IS PASSING GAS, "747'S GOING OFF IN HERE". YOUND MAN TO ASK WHY A DULCOLOX SUPP WAS GIVEN, EXPLAINED THAT WAS TO HELP STIMULATE THE BOWEL. TOLD THEM THAT WE NEEDED TO KEEP HIM NPO UNTIL HE HAD BETTER BOWEL SOUNDS AND MORE PASSING OF GAS. THE NG TUBE WAS TO DECOMPRESS THE STOMACH AND "LET THE GUT REST". PATIENT STATES THAT HE REMEMBER ME WITH HIS KNEE SURGERY AND THE BONE CLASS, I EXPLAINED THAT WAS MY SISTER. NO FURTHER QUESTIONS AND THEY SEEMED HAPPY WITH ECERYTHING.
--- NOTE | 2021-03-01 12:14 | NUR ---
WE ARE CONTINUEING TO FOLLOW THE PATIENT. PATIENT NOTED TO STILL HAVE THE CARDIZEM DRIP AND NGT AT THIS TIME. HE LOOKS IF HE IS PROGRESSING WITH THERAPY, BUT FATIGUES EASILY. WE WILL CONTINUE TO LOOK AT HIM DAILY TO SEE IF HE WILL MET THE REQUIREMENTS FOR INPATIENT REHAB ONCE STABLE. MORENO MACIEL RN CLINICAL LIAISON, INPATIENT [facility].
--- NOTE | 2021-03-01 12:58 | NUR ---
PATIENT IN CONTROLLED A FIB, HR 79. CALLED CARDIOLOGY. ORDERS TO CHANGE RATE OF CARDIZEM DRIP TO 5ML/HR. RATE CHANGED. WILL CONTINUE MONITORING ON TELEMETRY.
--- NOTE | 2021-03-01 13:18 | NUR ---
Nutrition Reassessment/Follow-up: POD 5 exlap with appy. NGT to LIS. +flatus. SBFT per surgery. Noted pt reports that he has not been able to eat/drink since 02/21. Diet: NPO No new wt; last wt: 295# (02/22)IBW: 190# Labs noted: K+ 3.0, Glu 148, Ca 7.8, Alb 2.0 Meds noted: Protonix, Reglan, Dulcolax, D5NS @ 100, electrolyte protocol Est needs: 3017-9642 kcal/day (25-30 kcal/kg IBW) 85-105 g protein/day (1-1.2 g/kg IBW) 1766-2892 mL fluid/day (1 mL/kcal) or per MD Nutrition Diagnosis: -Inadequate energy intake R/T altered GI function AEB NPO status, NGT LIS. Nutrition Goals: -Tolerate diet advancement within 24 hrs. -Meet est fluid needs. -Stable wt. Nutrition Intervention: -If unable to advance diet, rec start Procal @ 100 mL/hr; provides 588 kcal (23-27% est needs) & 72 g protein (69-85% est needs) daily. -Need new wt. -RD will follow up within 1-2 days.
--- NOTE | 2021-03-01 14:55 | NUR ---
PATIENT FAMILY REQUESTING TPN HE HAS BEEN NPO SINCE 02/21. CALLED JONATHAN DEVRIES APN. ORDERED DIETARY CONSULT. DISCUSSED WITH FAMILY AND PATIENT.
--- NOTE | 2021-03-01 15:36 | NUR ---
DR. BAXTER AT BEDSIDE STATES TO HOLD OFF ON PROCAL INFUSIONS. PLANS TO TAKE TUBE OUT IN THE AM AND START ON LIQUIDS. OKAY TO DRINK WATER AND HAVE ICE CHIPS AT THIS TIME. PLANS TO CHANGE PAIN MEDICATION PER DR. BAXTER.
[2021-03-01 16:00] VITALS: BP 143/68
--- NOTE | 2021-03-01 16:15 | NUR ---
OT NOTE: FAMILY PRESENT. PT COMPLETED SIT TO STAND WITH MAX A. PT COMPLETED STATIC STANDING. PT REQUIRED MOD A FOR SAFETY WITH SITTING DOWN. PT USED BUE TO PUSH UP FROM CHAIR. PT FUNCTIONAL PERFORMANCE DECREASED FROM PREVIOUS DAY. NOTIFIED NURSE OF DECREASED AX TOLERANCE AND STRENGTH. [phone] THANK YOU,MORGAN WAYNE
--- NOTE | 2021-03-01 19:09 | NUR ---
WHILE RECIEVEING REPORT HE STATRTED YELLING OUT. WENT INTO ROOM AND HE WAS CRYING WITH HIS ON THE PHONE. BEGGING HER TO COME GET HIM. AT THIS TIME HE WAS UNAWARE OF WHERE HE WAS AND WHY HE WAS HERE. WANTED TO KNOW WHAT THE THING WAS IN HIS NOSE. EXPLAINED TO HIM WHAT WAS GOING ON. HE SETTLED SILVESTRE AND STATED SHE WAS ON HER WAY.
[2021-03-01 21:32] VITALS: BP 159/92
[2021-03-02 01:21] VITALS: BP 159/66
[2021-03-02 05:06] VITALS: BP 183/90
[2021-03-02 06:17] LABS: BASOPHILS 0.5 % (0-2); EOSINOPHILS 0.6 % (0-7); HEMATOCRIT 38.1 % (42.0-54.0); HEMOGLOBIN 12.8 g/dL (13.5-17.5); LYMPHOCYTES 8.2 % (15-50); MCH 31.5 pg (26.0-34.0); MCHC 33.6 g/dL (31.0-37.0); MCV 93.7 fL (80.0-100.0); MEAN PLATELET VOLUME 7.4 fL (7.4-10.4); MONOCYTES 5.8 % (2-11); NEUTROPHILS 84.9 % (40-80); PLATELET COUNT 375 10x3/uL (130-400); RBC 4.06 10x6/uL (4.20-6.10); RDW 13.9 % (11.5-14.5)
[2021-03-02 06:18] LABS: WBC 10.1 10x3/uL (4.8-10.8)
[2021-03-02 06:41] LABS: ALBUMIN 2.3 g/dL (3.4-5.0); ALKALINE PHOSPHATASE 53 U/L (30-120); BILIRUBIN - TOTAL 0.37 mg/dL (0.2-1.3); CALC OSMOLALITY 289 mosm/kg (275-300); CALCIUM 8.3 mg/dL (8.5-10.1); CARBON DIOXIDE 23.9 mmol/L (21.0-32.0); CHLORIDE - SERUM 109 mmol/L (98-107); GLUCOSE 138 mg/dL (74-106); PROTEIN - SERUM 5.6 g/dL (6.4-8.2); SODIUM 145 mmol/L (136-145); UREA NITROGEN 10 mg/dL (7-18); eGFR NON AFRICAN AMERICAN 75 mL/min (90-120)
[2021-03-02 06:42] LABS: ALT (SGPT) 38 U/L (10-68); POTASSIUM - SERUM 3.3 mmol/L (3.5-5.1)
[2021-03-02 08:17] VITALS: BP 165/71
--- NOTE | 2021-03-02 08:39 | NUR ---
PT IN BED WITH AT BEDSIDE. STATES HAD BM THIS MORNING THAT WAS LOOSE AND PASSING GAS. ONLY UP TO BSC DUE TO WEAKNESS. HAD TORADOL INJECTION YESTERDAY THAT STATES MADE A LITTLE CRAZY AND DOES NOT WANT THAT AGAIN. NGT IS CLAMPED AT PRESENT AND PT TAKING LIQUIDS AND TOLERATING. TALKED WITH JOSE RAFAEL BROWER WITH CARDIO AND OK TO STOP CARDIZEM DRIP AND USE IV TOPROL UNTIL TAKING PO WELL.
--- NOTE | 2021-03-02 09:30 | NUR ---
PT SITTING ON CHAIR. TOOK OUT NG TUBE, PT TOLERATEED WELL. STOPPED CARDIZEM DRIP. ALL NEEDS MET AT THIS TIME. CLWR.
[2021-03-02 12:11] VITALS: BP 117/72
[2021-03-02 16:00] VITALS: BP 164/82
--- NOTE | 2021-03-02 18:21 | NUR ---
PT AMBULATED WITH FAMILY WITH A WALKER AROUND THE UNIT. PT BACK IN BED.
[2021-03-02 21:36] VITALS: BP 137/74
[2021-03-03 00:01] VITALS: BP 180/75
[2021-03-03 03:23] VITALS: BP 148/81
--- NOTE | 2021-03-03 06:02 | NUR ---
PT X1 ASST TO BSC. LOOSE STOOLS NOTED. DENIES ABD OR DISCOMFORT. TOLERATING LIQUIDS WELL. NO C/O OF NAUSEA. CL IN REACH. WILL CTM.
[2021-03-03 06:39] LABS: BASOPHILS 0.5 % (0-2); EOSINOPHILS 1.7 % (0-7); HEMATOCRIT 38.8 % (42.0-54.0); LYMPHOCYTES 11.9 % (15-50); MCH 31.4 pg (26.0-34.0); MCHC 33.5 g/dL (31.0-37.0); MCV 93.9 fL (80.0-100.0); MEAN PLATELET VOLUME 7.6 fL (7.4-10.4); MONOCYTES 5.6 % (2-11); NEUTROPHILS 80.3 % (40-80); PLATELET COUNT 437 10x3/uL (130-400); RBC 4.13 10x6/uL (4.20-6.10); RDW 13.8 % (11.5-14.5); WBC 8.4 10x3/uL (4.8-10.8)
[2021-03-03 06:54] LABS: ALBUMIN 2.2 g/dL (3.4-5.0); ALKALINE PHOSPHATASE 51 U/L (30-120); ALT (SGPT) 33 U/L (10-68); BILIRUBIN - TOTAL 0.36 mg/dL (0.2-1.3); CALCIUM 7.9 mg/dL (8.5-10.1); CARBON DIOXIDE 24.6 mmol/L (21.0-32.0); CHLORIDE - SERUM 105 mmol/L (98-107); GLUCOSE 111 mg/dL (74-106); SODIUM 139 mmol/L (136-145); eGFR NON AFRICAN AMERICAN 75 mL/min (90-120)
[2021-03-03 06:59] LABS: CALC OSMOLALITY 279 mosm/kg (275-300); UREA NITROGEN 14 mg/dL (7-18)
[2021-03-03 07:00] LABS: POTASSIUM - SERUM 2.9 mmol/L (3.5-5.1)
--- NOTE | 2021-03-03 11:36 | NUR ---
THANK YOU FOR THIS REFERRAL. VISITED WITH PATIENT THIS MORNING. PATIENT IS HOPEFUL TO PROGRESS IN HIS DIET TODAY. HE IS CONSIDERING IRF VERSUS DRIVING TO OUT PATIENT THERAPY. IS CONCERNED THAT HE WILL NEED MORE ASSISTANCE WITH ADLS AT HOME AT HIS CURRENT LEVEL THAN SHE WILL BE ABLE TO PROVIDE AND THINKS WOULD BENEFIT FROM IRF. WILL CONTINUE TO FOLLOW. REPORTED TO INTERDISCIPKINARY TEAM DURING MORNING MEETING THAT PATIENT HAS NOT YET COMMITTED TO IRF.- THIAGO BURGESS LPN, CLINICAL LIAISON
[2021-03-03 12:42] VITALS: BP 165/75
--- NOTE | 2021-03-03 13:27 | NUR ---
Nutrition Follow-up: Spoke with pt following breakfast this AM. Tolerated clears; diet advanced to full liquids for lunch. Pt wants to eat solids. Denies N/V/abd pain. +BM. NGT removed yesterday. Continues to receive Procal @ 100 mL/hr. Diet: Full Liquids No new wt; last wt: 295# (02/22) Last BM: 03/03 Labs noted: K+ 2.9, Glu 111, Ca 7.9, Alb 2.2 Meds noted: Protonix, Reglan, Dulcolax, electrolyte protocol -Advance diet as tolerated as medically feasible. -If pt continues to tolerate PO intake and is eating well, rec d/c Procal. -Need new wt. -RD will follow up within 3-4 days.
--- NOTE | 2021-03-03 15:52 | NUR ---
OT NOTE: PT COMPLETED BED MOB WITH MIN A . PT COMPLETED EOB WITH SBA. PT COMPLETED SIT TO STAND WITH CGA. PT COMPLETED STATIC STANDING WITH SBA-CGA USING WALKER FOR INCREASED BALANCE. PT COMPLETED ADL MOB WITH CGA USING RW. PT COMPLETED BUE AROM EXS TOLERATED AT EOB. PT IV NOTED TO BE LEAKING. NOTIFIED NURSING. NURSING IN ROOM...MORA NOTIFIED NURSING THAT BED ALARM WAS NOT WORKING. NURSING STATED THEY WOULD HANDLE IT. CL WITHIN REACH. [phone] THANK YOU,MORGAN WILLIAMSON
[2021-03-03 16:57] VITALS: BP 139/67
--- NOTE | 2021-03-03 19:45 | NUR ---
INITIAL ROUNDS AND ASSESSMENT COMPLETED. PT RESTING IN BED. APPROPRIATE IN CONVERSATION. IV TO RFA AND LEFT HAND BOTH SALINE LOCKED. TELEMETRY 85 FIB/FLUTTER. CALLS FOR ASSIST UP TO BSC. SAFETY PRECAUTIONS IN PLACE. CALL LIGHT IN REACH.
[2021-03-03 20:45] VITALS: BP 137/62
--- NOTE | 2021-03-03 22:30 | NUR ---
ALL BEDTIME MEDS GIVEN. PT RESTING WITH NO DISTRESS. CALL LIGHT IN REACH.
--- NOTE | 2021-03-04 00:06 | NUR ---
PT RESTING WITH NO DISTRESS. CALL LIGHT IN REACH.
[2021-03-04 00:10] VITALS: BP 105/57
[2021-03-04 05:13] VITALS: BP 114/72
[2021-03-04 05:18] LABS: BASOPHILS 0.8 % (0-2); HEMATOCRIT 34.7 % (42.0-54.0); HEMOGLOBIN 11.7 g/dL (13.5-17.5); LYMPHOCYTES 7.9 % (15-50); MCH 31.4 pg (26.0-34.0); MCHC 33.7 g/dL (31.0-37.0); MCV 93.3 fL (80.0-100.0); MEAN PLATELET VOLUME 7.3 fL (7.4-10.4); MONOCYTES 5.2 % (2-11); NEUTROPHILS 84.1 % (40-80); PLATELET COUNT 369 10x3/uL (130-400); RBC 3.72 10x6/uL (4.20-6.10); RDW 13.4 % (11.5-14.5); WBC 6.4 10x3/uL (4.8-10.8)
[2021-03-04 05:37] LABS: ALKALINE PHOSPHATASE 50 U/L (30-120); ALT (SGPT) 25 U/L (10-68); BILIRUBIN - TOTAL 0.28 mg/dL (0.2-1.3); CALC OSMOLALITY 281 mosm/kg (275-300); CALCIUM 7.7 mg/dL (8.5-10.1); CARBON DIOXIDE 24.2 mmol/L (21.0-32.0); CHLORIDE - SERUM 108 mmol/L (98-107); GLUCOSE 106 mg/dL (74-106); PROTEIN - SERUM 5.3 g/dL (6.4-8.2); SODIUM 141 mmol/L (136-145); UREA NITROGEN 14 mg/dL (7-18); eGFR NON AFRICAN AMERICAN 75 mL/min (90-120)
[2021-03-04 05:40] LABS: POTASSIUM - SERUM 2.8 mmol/L (3.5-5.1)
--- NOTE | 2021-03-04 06:25 | NUR ---
AM MEDS GIVEN. IV REGLAN GIVEN. PT'S POTASSIUM LEVEL 2.8 GAVE 20MEQ OF KDUR PER ELECTROLYTE PROTOCOL. IV PROCALAMINE INFUSING AT 100ML/HR. CALL LIGHT IN REACH. PT STATES HE IS FEELILNG BETTER EVERYDAY.
[2021-03-04 08:25] VITALS: BP 96/81
--- NOTE | 2021-03-04 09:19 | NUR ---
AAOX4 UPON ENTERING. ADMINISTERED MORNING MEDICATION, NO DIFFICULTIES. REPLACED K PER PROTOCOL. DENIES ANY NEEDS AT THIS TIME. ASSESSMENT PERFORMED. BED IN LOWEST POSITION, BED RAILS X2, CALL LIGHT WITHIN REACH. WILL CONTINUE POC.
--- NOTE | 2021-03-04 09:53 | NUR ---
I have reviewed this patient and I concur with the Shift Assessment completed by the Licensed Practical Nurse today this shift.
--- NOTE | 2021-03-04 11:09 | NUR ---
REMOVED IV FROM LEFT HAND, CATHETER TIP INTACT. COVERED WITH GAUZE AND TAPE. TOLERATED WELL. REMOVED IV FROM RIGHT FOREARM, CATHETER TIP INTACT. COVERED WITH GAUZE AND TAPE, TOLERATED WELL. WAITING FOR DISHCARGE PAPERWORK.
--- NOTE | 2021-03-04 12:02 | NUR ---
SIGNED ALL NECESSARY PAPERWORK AT THIS TIME. WILL BE ESCORTED OUT VIA WHEELCHAIR. DENIES ANY FURTHER NEEDS FROM STAFF/HOSPITAL AT THIS TIME. ACCOMPANIED BY FAMILY.
--- NOTE | 2021-03-04 17:14 | MORECARE ---
CASE MANAGEMENT DISCHARGE SUMMARY PATIENT: ISHA ROPER UNIT: [id number] ADM DATE: 02/21/21 AGE: 89 : 31 SEX: M ROOM/BED: D.[facility] AUTHOR: PERLITA,DOC PHYSICIAN: REFERRING PHYSICIAN: MANUEL SHARMA DO DATE OF SERVICE: 03/04/21 Case Management Discharge Planning Summary DCP REVIEW SUMMARY ANTICIPATED D/C DATE: EXPECTED LOS : CASE STATUS: DCP Initiated INITIAL REVIEW: 02/21/2021 INITIAL REVIEWER: Tay Dinero FINAL DISCHARGE DISPOSITION: : FINAL REVIEWER: FINAL REVIEW DATE: DCP [employer] Questions & Answers QUESTION: ANSWER : PATIENT: ISHA ROPER ENCOUNTER: [id number] MEDICAL RECORD#: [id number] ADMISSION DATE: 02/21/2021 DISCHARGE DATE: 03/04/2021 ATTENDING MD: MANUEL GOODRICH : AGE: 89 MARITAL STATUS: M DC PLAN ID: [id number] FACILITY: [facility] PRINTED ON: 03/04/21 17:13 CT All edits/amendments must be made on the electronic document DICTATION DATE: 03/04/211712 SHEET MUSIC SALESPERSON: DM 03/04/211712 RPT#: [id number] DC DATE:03/04/21 STATUS: DIS IN [facility] [address] [place] [address] END OF REPORT
--- NOTE | 2021-03-06 09:26 | EC ---
PATIENT:ISHA ROPER DATE OF SERVICE: 02/21/21 SEX: M MEDICAL RECORD: [id number] DATE OF : 32 LOCATION:D.M2 D.211 AGE OF PATIENT: 89 ADMISSION DATE: 02/21/21 REFERRING PHYSICIAN: INTERPRETING PHYSICIAN: MALINDA ALBA MD ECHOCARDIOGRAM REPORT ECHO CHARGES 4 ECHO COMPLETE Date: 02/28/21 CLINICAL DIAGNOSIS: A-FIB ECHOCARDIOGRAPHIC MEASUREMENTS (adult normal given) AC root (d.<3.7cm) 3.7 cm LV Septum d (<1.2 cm> 1.4 cm Valve Excursion 2.2 cm LV Septum (systole) 1.6 cm Left Atria (s.<4.0cm> 5.5 cm LVPW d(<1.2cm) 1.2 cm RV (d.<2.3cm) 3.1 cm LVPW (sytole) 1.4 cm LV diastole(<5.6CM) 4.4 cm MV E-F(>70mm/sec) cm LV systole 2.2 cm LVOT Diameter 2.2 cm MV exc.(>10mm) cm Est.ejection fraction (50-75%) 55 % DOPPLER: LVIT cm/sec A 110 cm/sec E 70 cm/sec LA cm/sec RVSP 38 mmHg LVOT 140 cm/sec AOP1/2T m/s Asc. Ao 164 cm/sec RVOT 111 cm/sec RA 3.7 cm/sec PA cm/sec AV Gradient Peak 10 mmHg AV Mean 6 mmHg AV Area 3.4 cm MV Gradient Peak 5 mmHg MV Mean 2 mmHg MV Area cm COMMENTS: Railroad Brake Operator: Florencia HOLLIS Wellhead Pumper: 3 Dr. Parker TAPE# Pericardial Effusion N DATE OF SERVICE: Adequate 2D, color-flow imaging, spectral Doppler, and M-Mode FINDINGS: LVH is present. LV internal dimensions are normal. Wall motion is normal. EF is greater than or equal to 55%. Aortic valve is sclerotic. No evidence of stenosis by Doppler interrogation. Left atrium is dilated at 5.5 cm. Mitral valve shows no prolapse. Mild MR. Right side is grossly normal. Mild TR. ECHOCARDIOGRAM REPORT [id number] ISHA ROPER TRANSINT:[id number] Voice Confirmation ID: [id number] DOCUMENT ID: [id number] MALINDA ALBA MD at 0926 CC: [id number] DICTATION DATE: 03/03/21 1116 PHOTOGRAPHIC ARTIST: 03/03/21 1212 DIS IN 03/04/21 [id number] [place] [address]
--- NOTE | 2021-03-06 10:27 | MORECARE ---
CASE MANAGEMENT DISCHARGE SUMMARY PATIENT: ISHA ROPER UNIT: [id number] ADM DATE: 02/21/21 AGE: 89 : 31 SEX: M ROOM/BED: D.[facility] AUTHOR: PERLITA,DOC PHYSICIAN: REFERRING PHYSICIAN: MANUEL SHARMA DO DATE OF SERVICE: 03/06/21 Case Management Discharge Planning Summary DCP REVIEW SUMMARY ANTICIPATED D/C DATE: EXPECTED LOS : CASE STATUS: DCP Initiated INITIAL REVIEW: 02/21/2021 INITIAL REVIEWER: Tay Dinero FINAL DISCHARGE DISPOSITION: : FINAL REVIEWER: FINAL REVIEW DATE: DCP [employer] Questions & Answers QUESTION: ANSWER : PATIENT: ISHA ROPER ENCOUNTER: [id number] MEDICAL RECORD#: [id number] ADMISSION DATE: 02/21/2021 DISCHARGE DATE: 03/04/2021 ATTENDING MD: MANUEL GOODRICH : AGE: 89 MARITAL STATUS: M DC PLAN ID: [id number] FACILITY: [facility] PRINTED ON: 03/06/21 10:27 CT All edits/amendments must be made on the electronic document DICTATION DATE: 03/06/21 102 ANIMAL CARE ASSISTANT: DM 03/06/21 1027 RPT#: [id number] DC DATE:03/04/21 STATUS: DIS IN [facility] [address] [place] [address] END OF REPORT
== END 2021-03-04 12:04 | disposition home or self-care (01) | DRG 338 ==
LOC: D.MS 17:50 → D.M2 02-28 01:42
PROVIDERS: Family Medicine; Surgery; ADMIT Family Medicine; ATTEND Family Medicine
PROC: 0DTJ4ZZ Resection of Appendix, Percutaneous Endoscopic Approach (ICD-10-PCS; principal; 2021-02-24 12:45)
DX: K35.33 Acute appendicitis with perforation, localized peritonitis, and gangrene, with abscess (principal); I21.4 Non-ST elevation (NSTEMI) myocardial infarction; K56.7 Ileus, unspecified; N17.9 Acute kidney failure, unspecified; N40.0 Benign prostatic hyperplasia without lower urinary tract symptoms; M19.90 Unspecified osteoarthritis, unspecified site; I73.9 Peripheral vascular disease, unspecified; E78.5 Hyperlipidemia, unspecified; Z95.0 Presence of cardiac pacemaker; E03.9 Hypothyroidism, unspecified; I10 Essential (primary) hypertension; E87.6 Hypokalemia; I25.10 Atherosclerotic heart disease of native coronary artery without angina pectoris

== ENCOUNTER → 2021-04-03 17:27 | Outpatient (CLI) | payer MEDICARE, OTHER ==
[2021-02-22 14:45] VITALS: BMI 37.8
[~2021-04-03 17:27] MED LIST changes: +COZAAR50 MG PO
[2021-04-03 18:00] LABS: CALC OSMOLALITY 284 mosm/kg (275-300); CALCIUM 8.3 mg/dL (8.5-10.1); CARBON DIOXIDE 28.7 mmol/L (21.0-32.0); CHLORIDE - SERUM 107 mmol/L (98-107); GLUCOSE 86 mg/dL (74-106); POTASSIUM - SERUM 3.8 mmol/L (3.5-5.1); SODIUM 143 mmol/L (136-145); UREA NITROGEN 16 mg/dL (7-18); eGFR NON AFRICAN AMERICAN 75 mL/min (90-120)
== END | disposition home or self-care (01) ==
LOC: D.LABREF 17:27
PROVIDERS: ATTEND Nurse Practitioner Adult Health
DX: I25.10 Atherosclerotic heart disease of native coronary artery without angina pectoris (principal)

== ENCOUNTER → 2021-04-07 09:45 | Outpatient (CLI) | payer MEDICARE, OTHER ==
[2021-02-22 14:45] VITALS: BMI 37.8
== END | disposition home or self-care (01) ==
LOC: D.CT 09:45
PROVIDERS: ATTEND Internal Medicine Interventional Cardiology
DX: I71.4 Abdominal aortic aneurysm, without rupture (principal)